=== PATIENT | female | born 1950 | race Caucasian/White ===

== ENCOUNTER → 2016-10-03 | Outpatient (CLI) | payer OTHER ==
[~2016-10-03] MED LIST: ALBU18002 INH; ATOR10TA88 PO; CALC600T9 PO; DEXL30CA5 PO; FLVHFA110 INH; MAGN400T6 PO; METO-217 PO; MULTCAP7 PO
--- NOTE | 2016-10-03 15:01 | MAMMOGRAPHY REPORT ---
BILATERAL DIGITAL SCREENING MAMMOGRAM WITH CAD: 10/03/2016 CLINICAL HISTORY: Routine screening. Patient has no complaints. TECHNIQUE: Current study was also evaluated with a Computer Aided Detection (CAD) system. Bilatera l CC and MLO views were obtained. COMPARISON: Comparison is made to exams dated: 09/28/2015 mammogram, 09/27/2014 mammogram, 09/08/2012 mammogram, 08/30/2010 mammogram, 08/29/2009 mammogram, and 09/09/2013 mammogram - [facility]. BREAST COMPOSITION: The tissue of both breasts is almost entirely fatty. FINDINGS: No suspicious masses, calcifications, or areas of architectural distortion are noted in e ither breast. There has been no significant interval change compared to prior exams. IMPRESSION: ACR BI-RADS CATEGORY 1: NEGATIVE There is no mammographic evidence of malignancy. A 1 year screening mammogram is recommended. The p atient will receive written notification of the results. Approximately 10% of breast cancers are not detected with mammography. A negative mammographic repor t should not delay biopsy if a clinically suggestive mass is present. Saumya Moon M.D. /:10/03/2016 13:33:07 [employer] Special Education Teacher: Selena Courtney, [facility] letter sent: Normal 1/2 BI-RADS Code: ACR BI-RADS Category 1: Negative
== END | disposition home or self-care (01) ==
LOC: C.MAMM 13:03
PROVIDERS: ATTEND Family Medicine
DX: Z12.31 Encounter for screening mammogram for malignant neoplasm of breast (principal)

== ENCOUNTER → 2017-01-29 | Day surgery (SDC) | payer OTHER ==
[2017-01-21 10:21] VITALS: BMI 47.0
[~2017-01-29] VITALS: Ht 162.6 cm; Wt 122.7 kg
[~2017-01-29] MED LIST changes: +LIDOCAINE HCL 2% 2 ML VIAL (20MG/ML) ONE; +MIDAZOLAM HCL 1 MG/ML 2ML VIAL ONE; +PROPOFOL IV EMULSION 10 MG/ML 20 ML VIAL IV ONE; +SODIUM CHLORIDE 0.9% 500ML 500 ML IV ONE
[2017-01-29 07:53] VITALS: Ht 162.6 cm; Wt 122.7 kg
--- NOTE | 2017-01-29 08:48 | Endo History and Physical ---
History & Physical Date of Service: Jan 29, 2017. Chief Complaint: SCREENING Referring Physician: DR. FLORES History of Present Illness patient for screening colonoscopy Past Surgical History Hx Cardiac Surgery: No Hx Internal Defibrillator: No Hx Pacemaker: No Hx Abdominal Surgery: Yes ([facility]) Hx of Implantable Prosthesis: No Hx Post-Op Nausea and Vomiting: Yes Hx Cancer Surgery: No Hx Thoracic Surgery: No Hx Orthopedic: Yes (RT/LEFT KNEE ARTHROSCOPY, RT THUMB JOINT SX) Hx Urinary Tract Surgery: No Family History None Social History Smoking Status: Never Smoker Hx Substance Use: No Hx Alcohol Use: Yes (RARELY) Allergies Coded Allergies: Indomethacin (Verified Allergy, Unknown, HEADACHE, 01/29/17) Sulfa Antibiotics (Verified Allergy, Unknown, SOAR SPOTS IN MOUTH, 01/29/17 ) Current Medications Reported Home Medications Medications Dose Route/Sig Max Daily Dose Days Date Category Eye Vitamins (Multiple Vitamins W/ Minerals) 1 Cap Cap 1 Cap PO QAM 01/21/17 Reported Calcium + D (Calcium Carbonate-Vitamin D) 1 Tab Tab 2 Tab PO BID 01/21/17 Reported Mag-Ox (Magnesium Oxide) 400 Mg Tab 400 Mg PO QPM 01/21/17 Reported Flovent Hfa (Fluticasone Propionate) 120 Puffs/10219 Mcg Aero 2 Puffs INH BID 30 01/21/17 Reported Proair Respiclick (Albuterol Sulfate) 108 Mcg/Act Aer 2 Puff INH Q4H PRN 01/21/17 Reported Lipitor (Atorvastatin Calcium) 10 Mg Tab 10 Mg PO HS 01/21/17 Reported Toprol Xl (Metoprolol Succinate) 50 Mg Tabcr 50 Mg PO BID 01/21/17 Reported Dexilant (Dexlansoprazole) 30 Mg Cap 1 Cap PO QAM 01/21/17 Reported Vital Signs Weight (Kilograms): 122.73 Height (Feet): 5 Height (Inches): 4 Date Time Temp Pulse Resp B/P (MAP) Pulse Ox O2 Delivery O2 Flow Rate FiO2 01/29/17 08:02 36.8 47 20 138/85 (102) 95 Room Air Physical Exam General Appearance: no apparent distress Respiratory/Chest: Auscultation: breath sounds normal Cardiovascular: Heart Auscultation: RRR Abdomen: Inspection & Palpation: soft, no tenderness, guarding & rebound Assessment and Plan stable for colonoscopy
--- NOTE | 2017-01-29 09:14 | Discharge Instructions ---
Endoscopy Patient Instructions Date / Procedure(s) Performed Jan 29, 2017. Colonoscopy Allergy Information Coded Allergies: Indomethacin (Verified Allergy, Unknown, HEADACHE, 01/29/17) Sulfa Antibiotics (Verified Allergy, Unknown, SOAR SPOTS IN MOUTH, 01/29/17 ) Discharge Date / Findings Jan 29, 2017. normal colonoscopy Provider Instructions Activity Restrictions - No exercising or heavy lifting for 24 hours. - Do not drink alcohol the day of the procedure. - Do not drive a car or operate machinery until the day after the procedure. - Do not make any important decisions or sign important papers in 24 hours after the procedure. Following Day: - Return to full activity which may include returning to work/school. Diet Start your diet with liquids and light foods (jello, soup, juice, toast). Then eat your usual diet if not nauseated. Treatment For Common After Affects For mild abdominal pain, bloating, or excessive gas: - Rest - Eat lightly - Lie on right side Follow-Up Information Follow-up with DR. FLORES as scheduled Anesthesia Information What You Should Know You have had a procedure that required some medicine to reduce anxiety and discomfort. This treatment is called moderate sedation. After receiving the treatment, you may be sleepy, but you will be able to breathe on your own. The effects of the treatment may last for several hours. Follow these instructions along with Activity/Diet recommendations noted above: * Do NOT do anything where dizziness or clumsiness would be dangerous. * Rest quietly at home today, then you can be up and about tomorrow. * Have a responsible person stay with you the rest of today. * You may have had an I.V. today. If so, you may take the dressing off later today. Recommendations Call your doctor if: * Trouble breathing * Continuous vomiting for more than 24 hours * Temperature above 101 degrees * Severe abdominal pain or bloating * Pain not relieved by pain medicine ordered * There is increased drainage or redness from any incision * A large amount of rectal bleeding greater than 2-3 tablespoons. (If you had a polyp/s removed or have hemorrhoids, a small amount of blood - from the rectum is to be expected.) * You have any unanswered questions or concerns. IN THE EVENT OF A SERIOUS EMERGENCY, GO TO THE NEAREST EMERGENCY ROOM Your discharge instructions were prepared by provider Renato Farias. Patient Instructions Signature Page Edel Herndon Patient (or Guardian) Signature/Date: I have read and understand the instructions given to me by my caregivers. Caregiver/RN/Doctor Signature/Date: The above-named patient and/or guardian has received patient instructions on this date. + Original Patient Signature Page (only) stays with chart. Please make copy for patient.
--- NOTE | 2017-01-29 09:17 | GI REPORT ---
Procedure Date: 01/29/2017 8:24 AM Procedure: Colonoscopy Indications: Screening for colorectal malignant neoplasm Medicines: See the Anesthesia note for documentation of the administered medications Complications: No immediate complications. Estimated Blood Loss: Estimated blood loss: none. Procedure: Pre-Anesthesia Assessment: - Prior to the procedure, a History and Physical was performed, and patient medications, allergies and sensitivities were reviewed. The patient's tolerance of previous anesthesia was reviewed. - The risks and benefits of the procedure and the sedation options and risks were discussed with the patient. All questions were answered and informed consent was obtained. - Patient identification and proposed procedure were verified prior to the procedure by the physician and the nurse. The procedure was verified in the pre-procedure area. - Pre-procedure physical examination revealed no contraindications to sedation. - After reviewing the risks and benefits, the patient was deemed in satisfactory condition to undergo the procedure. After I obtained informed consent, the scope was passed under direct vision. Throughout the procedure, the patient's blood pressure, pulse, and oxygen saturations were monitored continuously. The scope was introduced through the anus and advanced to the terminal ileum, with identification of the appendiceal orifice and IC valve. The colonoscopy was performed without difficulty. The patient tolerated the procedure well. The quality of the bowel preparation was good. Findings: The perianal and digital rectal examinations were normal. The terminal ileum appeared normal. The entire examined colon appeared normal on direct and retroflexion views. Impression: - The examined portion of the ileum was normal. - The entire examined colon is normal on direct and retroflexion views. - No specimens collected. Recommendation: - Repeat colonoscopy in 10 years for screening purposes. - Discharge patient to home. Renato Farias M.D. Renato Farias MD 01/29/2017 9:17:10 AM This report has been signed electronically. Note Initiated On: 01/29/2017 8:24 AM I attest to the content of the Intraoperative Record and orders documented therein, exceptions below
[2017-01-29 09:52] VITALS: BP 114/78; PULSE 67; O2SAT 96
--- NOTE | 2017-01-29 10:15 | Anesthesiology Progress Note ---
Anesthesia Post Op Note Date & Time Jan 29, 2017 at 10:15 Vital Signs Pain Intensity: 0 Vital Signs Past 12 Hours Date Time Temp Pulse Resp B/P (MAP) Pulse Ox O2 Delivery O2 Flow Rate FiO2 01/29/17 09:52 67 20 114/78 (90) 96 Room Air 01/29/17 09:34 73 20 100/65 (77) 96 Room Air 01/29/17 09:17 88 24 102/73 (83) 94 Nasal Cannula 2 01/29/17 08:02 36.8 47 20 138/85 (102) 95 Room Air Notes Mental Status: alert / awake / arousable, participated in evaluation Pt Amnestic to Procedure: Yes Nausea / Vomiting: adequately controlled Pain: adequately controlled Airway Patency, RR, SpO2: stable & adequate BP & HR: stable & adequate Hydration State: stable & adequate Anesthetic Complications: no major complications apparent
== END | disposition home or self-care (01) ==
LOC: C.GI 07:18
PROVIDERS: ATTEND Nurse Practitioner Family
DX: Z12.11 Encounter for screening for malignant neoplasm of colon (principal); Z90.49 Acquired absence of other specified parts of digestive tract

== ENCOUNTER → 2017-10-07 | Outpatient (CLI) | payer OTHER ==
[~2017-10-07] MED LIST changes: +ATOR10TA82 PO; -ATOR10TA88 PO; -LIDOCAINE HCL 2% 2 ML VIAL (20MG/ML) ONE; -MIDAZOLAM HCL 1 MG/ML 2ML VIAL ONE; -PROPOFOL IV EMULSION 10 MG/ML 20 ML VIAL IV ONE; -SODIUM CHLORIDE 0.9% 500ML 500 ML IV ONE
--- NOTE | 2017-10-08 13:05 | MAMMOGRAPHY REPORT ---
BILATERAL DIGITAL SCREENING MAMMOGRAM TOMOSYNTHESIS WITH CAD: 10/07/2017 CLINICAL HISTORY: Routine screening. Patient has no complaints. TECHNIQUE: Breast tomosynthesis in addition to standard 2D mammography was performed. Current study was also evaluated with a Computer Aided Detection (CAD) system. COMPARISON: Comparison is made to exams dated: 10/03/2016 mammogram, 09/28/2015 mammogram, 09/27/2014 m ammogram, 09/08/2012 mammogram, 09/03/2011 mammogram, and 08/30/2010 mammogram - [facility] enter. BREAST COMPOSITION: The tissue of both breasts is almost entirely fatty. FINDINGS: There is stable focal asymmetry in the upper outer quadrant of the left breast. No suspicio us mass, architectural distortion or cluster of microcalcifications is seen. IMPRESSION: ACR BI-RADS CATEGORY 1: NEGATIVE There is no mammographic evidence of malignancy. A 1 year screening mammogram is recommended. The pa tient will receive written notification of the results. Approximately 10% of breast cancers are not detected with mammography. A negative mammographic report should not delay biopsy if a clinically suggestive mass is present. Norma Walsh M.D. ay/:10/07/2017 17:24:02 Staple Processing Machine Operator: Kinga MARTINS(Girsel)(Roya), [facility] letter sent: Normal 1/2 BI-RADS Code: ACR BI-RADS Category 1: Negative
== END | disposition home or self-care (01) ==
LOC: C.MAMM 13:17
PROVIDERS: ATTEND Family Medicine
DX: Z12.31 Encounter for screening mammogram for malignant neoplasm of breast (principal)

== ENCOUNTER 2022-01-26 10:46 | Observation (INO) ==
--- NOTE | 2022-01-01 09:25 | PAT Medication Instructions ---
Medication Instructions Date of Service January 01, 2022 Home Medications albuterol sulfate 2.5 mg INHALATION Q4 PRN albuterol sulfate 90 mcg/actuation aerosol inhaler (Proventil HFA) 2 puff INHALATION Q4 PRN atorvastatin 10 mg tablet 10 mg PO HS calcium carbonate 600 mg-vitamin D3 5 mcg (200 unit) capsule (Calcium 600 + D(3)) 2 cap PO BID esomeprazole magnesium 20 mg capsule,delayed release (Nexium) 20 mg PO QAM fluticasone propionate 110 mcg/actuation HFA aerosol inhaler (Flovent HFA) 2 puff INHALATION BID fluticasone propionate 50 mcg/actuation nasal spray,suspension (Flonase Allergy Relief) 2 spray INTRANASAL QAM hydrocortisone 2.5 % topical cream with perineal applicator (Proctozone-HC) 1 applic GA BID PRN ketoconazole 2 % topical cream 1 applic TOPICAL BID PRN lutein 25 mg-zeaxanthin 5 mg capsule (Ocuvite Lutein) 1 cap PO QAM magnesium oxide 400 mg PO QPM metoprolol succinate 50 mg tablet,extended release 24 hr 50 mg PO BID furosemide 20 mg tablet 20 mg PO 3XWK mirabegron 50 mg tablet,extended release 24 hr 50 mg PO QPM montelukast 10 mg tablet 10 mg PO QAM spironolactone 25 mg tablet 12.5 mg PO QAM famotidine 20 mg tablet 20 mg PO BID ferrous sulfate 325 mg (65 mg iron) tablet 325 mg PO QAM hydroxyzine HCl 10 mg tablet 10 mg PO QID PRN levocetirizine 5 mg tablet 5 mg PO BID ropinirole 2 mg tablet 2 mg PO TID STOP taking 2 weeks before surgery (or as soon as possible if surgery is within 2 weeks) lutein 25 mg-zeaxanthin 5 mg capsule (Ocuvite Lutein) 1 cap PO QAM STOP taking 24 hours before surgery ketoconazole 2 % topical cream 1 applic TOPICAL BID PRN DO NOT take the morning of surgery calcium carbonate 600 mg-vitamin D3 5 mcg (200 unit) capsule (Calcium 600 + D(3)) 2 cap PO BID hydrocortisone 2.5 % topical cream with perineal applicator (Proctozone-HC) 1 applic GA BID PRN furosemide 20 mg tablet 20 mg PO 3XWK montelukast 10 mg tablet 10 mg PO QAM spironolactone 25 mg tablet 12.5 mg PO QAM ferrous sulfate 325 mg (65 mg iron) tablet 325 mg PO QAM hydroxyzine HCl 10 mg tablet 10 mg PO QID PRN levocetirizine 5 mg tablet 5 mg PO BID ropinirole 2 mg tablet 2 mg PO TID Take morning of surgery With a small sip of water, OTHERWISE NOTHING TO EAT OR DRINK AFTER MIDNIGHT: albuterol sulfate 2.5 mg INHALATION Q4 PRN (if needed) albuterol sulfate 90 mcg/actuation aerosol inhaler (Proventil HFA) 2 puff INHALATION Q4 PRN (if needed) esomeprazole magnesium 20 mg capsule,delayed release (Nexium) 20 mg PO QAM fluticasone propionate 110 mcg/actuation HFA aerosol inhaler (Flovent HFA) 2 puff INHALATION BID fluticasone propionate 50 mcg/actuation nasal spray,suspension (Flonase Allergy Relief) 2 spray INTRANASAL QAM metoprolol succinate 50 mg tablet,extended release 24 hr 50 mg PO BID famotidine 20 mg tablet 20 mg PO BID Use rescue inhaler if needed; please bring rescue inhaler with you to hospital day of surgery if possible. Take evening before surgery albuterol sulfate 2.5 mg INHALATION Q4 PRN (if needed) albuterol sulfate 90 mcg/actuation aerosol inhaler (Proventil HFA) 2 puff INHALATION Q4 PRN (if needed) atorvastatin 10 mg tablet 10 mg PO HS calcium carbonate 600 mg-vitamin D3 5 mcg (200 unit) capsule (Calcium 600 + D(3)) 2 cap PO BID fluticasone propionate 110 mcg/actuation HFA aerosol inhaler (Flovent HFA) 2 puff INHALATION BID hydrocortisone 2.5 % topical cream with perineal applicator (Proctozone-HC) 1 applic GA BID PRN (if needed) magnesium oxide 400 mg PO QPM metoprolol succinate 50 mg tablet,extended release 24 hr 50 mg PO BID mirabegron 50 mg tablet,extended release 24 hr 50 mg PO QPM famotidine 20 mg tablet 20 mg PO BID hydroxyzine HCl 10 mg tablet 10 mg PO QID PRN (if needed) levocetirizine 5 mg tablet 5 mg PO BID ropinirole 2 mg tablet 2 mg PO TID Other Notes If you have any questions please call us at [phone] or [phone] or [phone] or [phone]
--- NOTE | 2022-01-03 08:28 | Anesthesiology Consultation ---
Date of Service January 03, 2022 Assessment & Plan (1) Encounter for pre-operative examination: - COVID screening: Per assessment on 01/03/2022: Travel screen negative, no known COVID-19 positive contacts or current COVID-19 related symptoms in past 2 weeks. Pt vaccinated. Surgeon arranging preop COVID testing, scheduled 01/24/2022. Awaiting results. Chart Review Chart Review: Acceptable Risk for Surgery and Patient seen in Pre Admission Testing Teaching & Discussion Pre-Anesthesia Teaching/Discussion Notes: Instructed NPO after midnight before surgery, except medications with 15 cc of water. Medication instructions provided according to the PAT guidelines. History Surgery Operation Date: 01/26/22 10:20 Proposed Procedures p Left Total Knee Arthroplasty - Chava Rain, Height/Weight Height: 5 ft 2.5 in Weight: 94.8 kg Allergies Allergy/AdvReac Type Severity Reaction Status Date / Time indomethacin Allergy Mild HEADACHE Verified 01/01/22 07:42 Sulfa (Sulfonamide Allergy Mild SORE SPOTS Verified 01/01/22 07:42 Antibiotics) IN MOUTH midazolam [From Versed] AdvReac Intermediate Nausea Verified 01/01/22 07:42 Medications Home Medications Medication Instructions Recorded Confirmed Last Taken albuterol sulfate 2.5 mg INHALATION Q4 PRN 01/29/19 01/01/22 Unknown albuterol sulfate 90 mcg/actuation 2 puff INHALATION Q4 PRN 01/29/19 01/01/22 Unknown aerosol inhaler (Proventil HFA) atorvastatin 10 mg tablet 10 mg PO HS 01/29/19 01/01/22 02/09/19 02:30 calcium carbonate 600 mg-vitamin 2 cap PO BID 01/29/19 01/01/22 02/09/19 08:00 D3 5 mcg (200 unit) capsule (Calcium 600 + D(3)) esomeprazole magnesium 20 mg 20 mg PO QAM 01/29/19 01/01/22 02/10/19 07:00 capsule,delayed release (Nexium) fluticasone propionate 110 2 puff INHALATION BID 01/29/19 01/01/22 Unknown mcg/actuation HFA aerosol inhaler (Flovent HFA) fluticasone propionate 50 2 spray INTRANASAL QAM 01/29/19 01/01/22 02/09/19 08:00 mcg/actuation nasal spray,suspension (Flonase Allergy Relief) hydrocortisone 2.5 % topical cream 1 applic CA BID PRN 01/29/19 01/01/22 Unknown with perineal applicator (Proctozone-HC) ketoconazole 2 % topical cream 1 applic TOPICAL BID PRN 01/29/19 01/01/22 Unknown lutein 25 mg-zeaxanthin 5 mg 1 cap PO QAM 01/29/19 01/01/22 02/09/19 08:30 capsule (Ocuvite Lutein) magnesium oxide 400 mg PO QPM 01/29/19 01/01/22 02/09/19 20:00 metoprolol succinate 50 mg 50 mg PO BID 01/29/19 01/01/22 02/10/19 07:00 tablet,extended release 24 hr furosemide 20 mg tablet 20 mg PO 3XWK tab 11/15/21 01/01/22 Unknown mirabegron 50 mg tablet,extended 50 mg PO QPM 11/15/21 01/01/22 Unknown release 24 hr montelukast 10 mg tablet 10 mg PO QAM 11/15/21 01/01/22 Unknown spironolactone 25 mg tablet 12.5 mg PO QAM tab 11/15/21 01/01/22 Unknown famotidine 20 mg tablet 20 mg PO BID 01/01/22 01/01/22 Unknown ferrous sulfate 325 mg (65 mg 325 mg PO QAM 01/01/22 01/01/22 Unknown iron) tablet hydroxyzine HCl 10 mg tablet 10 mg PO QID PRN 01/01/22 01/01/22 Unknown levocetirizine 5 mg tablet 5 mg PO BID 01/01/22 01/01/22 Unknown ropinirole 2 mg tablet 2 mg PO TID 01/01/22 01/01/22 Unknown Past Medical History Medical History (Updated 01/03/22 @ 08:40 by Adwoa Sweeney PA-C) Asthma "mild"--rescue treatment last use > 1 month ago GERD (gastroesophageal reflux disease) controlled, stable per pt Hives of unknown origin uses singulair and levocetrizine daily -- 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 Hx of colonic polyp Hyperlipidemia Hypertension controlled, stable per pt Kidney stones no surgery needed. Palpitations chronic atrial and ventricular ectopic beats, on beta samuel, follows with [facility] Restless leg syndrome Patient denies h/o stroke, seizures, heart attack, heart failure, DM, blood clots or blood transfusions. Exercise / Class Metabolic Activity II 4-5 Yardwork/Stairs/Walk up hill (SOB at top of 1 FOS, denies chest discomfort; ongoing x several yrs improved with intentional weight loss) Past Family History Family History Family/Other Family history of diabetes mellitus cousins Other No family history of adverse response to anesthesia Past Surgical History Surgical History History of arthroscopy of left knee History of arthroscopy of right knee History of cholecystectomy History of colonoscopy History of esophagogastroduodenoscopy (EGD) History of hand surgery right hand, thumb removed ligament History of tonsillectomy and adenoidectomy History of tooth extraction History of wisdom tooth extraction Status post bilateral foot surgery plantar fasciitis relief sx Past Anesthesia History No Hx of Anesthesia Complications and No Family Hx of Anesthesia Complications History of PONV No Hx of PONV and No Hx of Motion Sickness Social History Smoking Status: Never smoker Do You Dip or Chew Tobacco: No Hx Alcohol Use: Yes Alcohol type: beer, wine and hard liquor alcohol intake frequency: holidays/special occasions only Hx Substance Use: No substance use type: does not use Review of Systems Snoring, denies witnessed apneas. Patient denies chest pain, fever, or chills. Physical Exam Vital Signs Vitals BP 130/82 P 62 TEMP 98.5 SP02 98% on RA RESP 17 Physical Full cervical extension range of motion without pain TMD 3.5 finger breaths Mallampati Score 3 Dentition: intact, bridge upper left side, several crowns-none in front; denies chipped or loose teeth, implants Lungs: normal respiratory effort. Clear throughout to auscultation, no adventitious breath sounds Cardiac: regular rate and rhythm, no murmurs noted Carotid arteries: negative bruit bilat Lab Results Anesthesia Preop Results Results Anesthesia Widget: WBC 5.37 K/uL (4.8-10.8) 01/03/22 Hgb 12.6 g/dL (12.0-16.0) 01/03/22 Hct 39.8 % (37-47) 01/03/22 Plt 251 K/uL (130-400) 01/03/22 Na 142 mmol/L (136-145) 01/03/22 K 4.4 mmol/L (3.5-5.1) 01/03/22 Cl 107 mmol/L (98-107) 01/03/22 CO2 31 mmol/L (21-32) 01/03/22 BUN 22 mg/dl (6-23) 01/03/22 Creat 0.91 mg/dl (0.6-1.2) 01/03/22 Glucose Level 86 mg/dl (70-99(Fasting)) 01/03/22 PT 10.3 Seconds (9.0-12.0) 01/03/22 PTT 26.8 Seconds (21.0-31.0) 01/03/22 INR 1.0 (0.9-1.1) 01/03/22 Blood Type O Negative 01/03/22 Antibody Screen NEGATIVE 01/03/22 Testing Electrocardiogram Date: 11/10/21 Sinus rhythm with marked sinus arrhythmia, ratae 72 bpm Chest X-Ray Date: 01/03/22 Lung volumes are normal. Lungs are clear. There is no pneumothorax or pleural ef fusion. Cardiac size is normal. Mediastinal contours are normal. There is no evidence for pulmonary edema. Cholecystectomy clips are incidentally noted. IMPRESSION: No acute cardiopulmonary findings. Echocardiogram Date: 08/04/20 EF 55-59% Grade I diastolic dysfunction Normal LV wall thickness No significant valvular disease
--- NOTE | 2022-01-25 09:43 | History & Physical Report ---
Date of Service January 25, 2022 Assessment & Plan (1) Osteoarthritis of left knee: We will proceed with a left total knee arthroplasty. Postoperatively she will be started on aspirin for DVT prophylaxis and kept overnight in the hospital for postoperative medical management. She plans [facility] discharge. History of Present Illness Chief Complaint: Osteoarthritis of the left knee. Primary Care Provider: Bart Brown MD Edel is a pleasant 71-year-old female whohas been dealing with chronic worsening bilateral knee pain, left worse than right. She has been following up at [facility]. She has had multiple cortisone injections and viscosupplementation. She has done therapy without relief. She is still struggling with her knees. She has known osteoarthritis of her knees. After failing conservative treatment, she has elected to proceed with a left total knee arthroplasty. Allergies Allergy/AdvReac Type Severity Reaction Status Date / Time indomethacin Allergy Mild HEADACHE Verified 01/01/22 07:42 Sulfa (Sulfonamide Allergy Mild SORE SPOTS Verified 01/01/22 07:42 Antibiotics) IN MOUTH midazolam [From Versed] AdvReac Intermediate Nausea Verified 01/01/22 07:42 Home Medications Medication Instructions Recorded Confirmed Type albuterol sulfate 2.5 mg inhalation Q4 PRN Shortness 01/29/19 01/01/22 History Of Breath albuterol sulfate 90 mcg/actuation 2 puff inhalation Q4 PRN Shortness 01/29/19 01/01/22 History aerosol inhaler (Proventil HFA) Of Breath atorvastatin 10 mg tablet 10 mg PO HS 01/29/19 01/01/22 History calcium carbonate 600 mg-vitamin 2 cap PO BID 01/29/19 01/01/22 History D3 5 mcg (200 unit) capsule (Calcium 600 + D(3)) esomeprazole magnesium 20 mg 20 mg PO QAM 01/29/19 01/01/22 History capsule,delayed release (Nexium) fluticasone propionate 110 2 puff inhalation BID 01/29/19 01/01/22 History mcg/actuation HFA aerosol inhaler (Flovent HFA) fluticasone propionate 50 2 spray intranasal QAM 01/29/19 01/01/22 History mcg/actuation nasal spray,suspension (Flonase Allergy Relief) hydrocortisone 2.5 % topical cream 1 applic [place] BID PRN Hemorrhoids 01/29/19 01/01/22 History with perineal applicator (Proctozone-HC) ketoconazole 2 % topical cream 1 applic topical BID PRN Rash 01/29/19 01/01/22 History lutein 25 mg-zeaxanthin 5 mg 1 cap PO QAM 01/29/19 01/01/22 History capsule (Ocuvite Lutein) magnesium oxide 400 mg PO QPM 01/29/19 01/01/22 History metoprolol succinate 50 mg 50 mg PO BID 01/29/19 01/01/22 History tablet,extended release 24 hr furosemide 20 mg tablet 20 mg PO 3XWK 11/15/21 01/01/22 History mirabegron 50 mg tablet,extended 50 mg PO QPM 11/15/21 01/01/22 History release 24 hr montelukast 10 mg tablet 10 mg PO QAM 11/15/21 01/01/22 History spironolactone 25 mg tablet 12.5 mg PO QAM 11/15/21 01/01/22 History famotidine 20 mg tablet 20 mg PO BID 01/01/22 01/01/22 History ferrous sulfate 325 mg (65 mg 325 mg PO QAM 01/01/22 01/01/22 History iron) tablet hydroxyzine HCl 10 mg tablet 10 mg PO QID PRN Itching 01/01/22 01/01/22 History levocetirizine 5 mg tablet 5 mg PO BID 01/01/22 01/01/22 History ropinirole 2 mg tablet 2 mg PO TID restless leg 01/01/22 01/01/22 History Past Med/Surg History Medical History Asthma "mild"--rescue treatment last use > 1 month ago GERD (gastroesophageal reflux disease) controlled, stable per pt Hives of unknown origin uses singulair and levocetrizine daily -- 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 Hx of colonic polyp Hyperlipidemia Hypertension controlled, stable per pt Kidney stones no surgery needed. Palpitations chronic atrial and ventricular ectopic beats, on beta samuel, follows with [facility] cardio Peripheral neuropathy Restless leg syndrome Surgical History History of arthroscopy of left knee History of arthroscopy of right knee History of cholecystectomy History of colonoscopy History of esophagogastroduodenoscopy (EGD) History of hand surgery right hand, thumb removed ligament History of tonsillectomy and adenoidectomy History of tooth extraction History of wisdom tooth extraction Status post bilateral foot surgery plantar fasciitis relief sx Family History Family/Other Family history of diabetes mellitus cousins Other No family history of adverse response to anesthesia Social History Smoking Status: Never smoker Second Hand Exposure: Yes (hx work environment/parents smoked); Hx Alcohol Use: Yes Alcohol type: beer, wine and hard liquor Hx Substance Use: No Preferred Language: Turkish Communication Ability: Effective Car Customizer Required: No Beliefs That Will Affect Care: None Current Living Situation: Spouse Feels Safe at Home: Yes Assistive Devices: Glasses Review of Systems All systems reviewed & are unremarkable except as noted in HPI & below. Physical Exam On physical examination of the left knee, she has a slight varus deformity. She has range of motion from 5 to 115 degrees. She has a trace effusion.. Constitutional WD/WN, vitals as above Eyes PERRL, conjunctivae normal, anicteric sclerae ENMT external ear and nose normal, oropharynx normal Neck trachea midline, no thyromegaly Respiratory normal respiratory effort, lungs clear to auscultation Cardiovascular RRR, no murmur, no edema Gastrointestinal (Abdomen) normal bowel sounds, soft, nontender, no hepatosplenomegaly Skin no rashes, warm and dry Psychiatric A+Ox3, euthymic affect Results & Data Results & Data Laboratory Results . Diagnostic Findings X-rays of the left knee show advanced osteoarthritis with joint space narrowing, osteophyte formation, and fvpo-ex-pmer articulation. PG Care Time/CCT Total # of Minutes Spent Total Time Spent with Patient: Total time spent is greater than 50% in coordination of care (as documented) at patient's floor/unit and/or counseling patient: Coding Level of Care Code None Diagnoses Osteoarthritis of left knee M17.12
[~2022-01-26 10:46] MED LIST changes: +ACETAMINOPHEN 500 MG TAB PO SCH; -ALBU18002 INH; -ATOR10TA82 PO; +BUPIVACAINE 0.5 % 5 MG/1 ML PF 10ML VIAL ONE; -CALC600T9 PO; -DEXL30CA5 PO; +FAMOTIDINE 20 MG TAB PO SCH; -FLVHFA110 INH; +GABAPENTIN 300 MG CAP PO SCH; +Ketorolac (*for OR use only*) 30 MG, dexAMETHasone 4 MG, KETAMINE HCL (**OR use only) 1... INFIL SCH; +LR 15ML/HR IV SCH; +LR 60ML/HR IV SCH; -MAGN400T6 PO; -METO-217 PO; -MULTCAP7 PO; +ROPIVACAINE 0.5% 5 MG/ML 30 ML VIAL ONE; +TRANEXAMIC ACID 1,000 MG **IV Intra-op IV SCH; +TRANEXAMIC ACID 1,000 MG **IV Pre-op IV SCH; +ceFAZolin 2000MG 2,000 MG/15 ML SYR IV SCH; +dexAMETHasone 4 MG TAB PO SCH
--- NOTE | 2022-01-26 11:33 | History & Physical Bridge Note ---
Date of Service January 26, 2022 History & Physical Bridge Note I have examined the patient, reviewed the History & Physical and in the interval since the performance of the History & Physical I have noted the following changes of clinical significance: no changes noted
[2022-01-26] MEDS ORDERED: fentaNYL citrate 100 MCG/2 ML VIAL ONE (11:46)
[2022-01-26] MEDS ORDERED: ORTHO JOINT ANESTHETIC ONE (12:03)
[2022-01-26] MEDS ORDERED: ONDANSETRON INJ 2 MG/ML 2 ML VIAL IV PRN ×2 (12:36→17:08)
[2022-01-26] MEDS ORDERED: ePHEDrine sulfate 50 MG/ML AMP IV PRN (12:36)
[2022-01-26] MEDS ORDERED: ATROPINE SULFATE 0.1 MG/ML 10ML SYR IV PRN (12:36)
[2022-01-26] MEDS ORDERED: fentaNYL citrate 100 MCG/2 ML VIAL IV PRN (12:36)
--- NOTE | 2022-01-26 14:06 | Operative Report ---
PG Post Operative Report Pre & Post Diagnosis Operation Date: 01/26/22 12:40 Pre-Op Diagnosis: Left Knee Degenerative Joint Disease Post-Op Diagnosis: Left Knee Degenerative Joint Disease I identified the patient and participated in the time-out.: Yes Procedure Operation Date: 01/26/22 12:40 Actual Procedures p Left Total Knee Arthroplasty(Left) - Chava Rain DO Surgeon Chava Rain DO Siderographist Chava Arambula PA-C Estimated Blood Loss 30 Findings Consistent with Post-Op Diagnosis Specimens Left femoral and tibial bone Description of Procedure Implants used: I used a Balbir Persona total knee arthroplasty system with a size 6 femur, D tibia, 28 oval patella, and a size 12 medial congruent polyethylene bearing. All components were cemented in place with Biomet cement. Edel arrived [facility] for the above procedure. She was seen in the preoperative holding area and the operative extremity was identified and signed. She was given a preoperative antibiotic, TXA, a spinal anesthetic and an adductor nerve block. She was taken back to the operating room and laid on the table in supine position. She was given basic sedation. The operative knee was then prepped and draped in sterile fashion. A timeout was done, and the patient and the operative extremity was properly identified. A midline incision was made directly over the patella. Dissection was taken down to the extensor mechanism. A subvastus arthrotomy was used. The medial retinaculum was released and the fat pad was mostly excised. The knee was flexed and the ACL, PCL, and meniscus were removed. A drill was sent down the center of the femoral canal followed by an intramedullary daniel. Off that daniel a distal femoral cutting block was placed. 9 mm was resected off the distal femur at 5 of valgus. A posterior referencing AP sizing guide was then placed on the distal femur. The femur measured to be a size 6. 2 drill holes were placed in 3 of external rotation. A 4-in-1 cutting block was then impacted into place. Anterior, posterior, and chamfer cuts were then made. The proximal tibia was then exposed. An external tibial alignment guide was placed. A tibial cut guide was then anchored in place and the proximal tibia was then resected. The posterior aspect of the knee was then opened up and any additional meniscus fragments and osteophytes were removed. The tibia measured to be a size D. The tibial plate was then placed in the appropriate rotation and the tibia was drilled and punched. Trial components were then placed. I used a size 12 medial congruent polyethylene insert. The knee was brought through a full range of motion and felt to be stable. The peg holes for the femoral component were then drilled. The patella was then everted and 9 mm was resected off the posterior aspect of the patella. The patella measured to be a size 28 oval. 3 peg holes were then drilled. A trial patella was placed. The knee was once again brought through a full range of motion and felt to be stable. Trial components were then removed. The surrounding soft tissues were injected with 100 cc of an orthopedic pain control cocktail. All components were then cemented into place with Biomet cement. The final polyethylene insert was then snapped into place. Once cement was dry the tourniquet was deflated. Hemostasis was obtained. A dilute betadyne lavage was then done for 3 minutes. The joint was then irrigated with normal saline solution. The subvastus arthrotomy was then closed with #1 Vicryl suture. The skin was closed with 2-0 Vicryl, 3-0V lock suture, and saleem. A soft compressive dressing was placed. She was then transferred to a hospital bed and taken to the postanesthesia care unit in stable condition. She tolerated the procedure well. Chava Arambula PA-C, was present for the entire procedure. He was critical for patient positioning, prepping, draping, retraction exposure, wound closure and application of sterile dressing. I attest to the content of the Intraoperative Record and any orders documented therein. Any exceptions are noted below.
--- NOTE | 2022-01-26 15:03 | XRay Report ---
TWO VIEWS LEFT KNEE CLINICAL HISTORY: Postoperative examination. FINDINGS: AP and crosstable lateral portable views of the left knee are obtained. A left knee arthrop lasty is in near anatomic alignment. There has been undersurface remodeling of the patella. No acute fracture is seen. There are expected postoperative changes around the knee including skin clips, sof t tissue edema, and subcutaneous gas. IMPRESSION: Expected postoperative changes status post left knee arthroplasty. No acute fracture is s een. ACT 112: Negative or not required by law. Electronically signed by: Conrado Whyte M.D. 01/26/2022 3:01 PM
--- NOTE | 2022-01-26 16:20 | Anesthesiology Progress Note ---
Date of Service January 26, 2022 Anesthesia Post Procedure Vital Signs Vital Signs: Temp Pulse Pulse Resp BP BP Pulse Ox 01/26/22 16:10 57 L 16 106/60 96 01/26/22 16:00 58 L 17 108/60 96 01/26/22 15:50 56 L 15 104/60 98 01/26/22 15:40 52 L 14 102/58 L 96 01/26/22 15:30 53 L 14 102/58 L 97 01/26/22 15:20 56 L 17 94/59 L 92 01/26/22 15:10 55 L 18 100/60 92 01/26/22 15:00 55 L 16 107/58 L 94 01/26/22 14:50 57 L 18 106/62 96 01/26/22 14:40 58 L 14 114/65 97 01/26/22 14:30 64 15 112/62 100 01/26/22 14:23 36.5 C 64 16 111/61 100 01/26/22 11:39 36.7 C 65 18 128/71 98 O2 Del Method O2 Flow Rate 01/26/22 16:10 Room Air 01/26/22 16:00 Room Air 01/26/22 15:50 Room Air 01/26/22 15:40 Room Air 01/26/22 15:30 Room Air 01/26/22 15:20 Room Air 01/26/22 15:10 Room Air 01/26/22 15:00 Room Air 01/26/22 14:50 Room Air 01/26/22 14:40 Room Air 01/26/22 14:30 Room Air 01/26/22 14:23 Oxymask 5 01/26/22 11:39 Room Air Pain Intensity Left Knee: Pain Intensity: 3 Transfer of Care Handoff Completed per policy Notes Mental Status: alert / awake / arousable Patient Amnestic to Procedure: Yes Nausea / Vomiting: adequately controlled Pain: adequately controlled Airway Patency, RR, SpO2: stable & adequate BP & HR: stable & adequate Hydration State: stable & adequate Neuraxial Anesthesia: was administered and sensory block is resolving Anesthetic Complications: no major complications apparent
[2022-01-26] MEDS ORDERED: ALBUTEROL HFA 8 GM INHALER INH PRN (17:08)
[2022-01-26] MEDS ORDERED: bisacodyL 10 MG SUPP PR PRN (17:08)
[2022-01-26] MEDS ORDERED: METOCLOPRAMIDE HCL INJ 5 MG/ML 2 ML VIAL IV PRN (17:08)
[2022-01-26] MEDS ORDERED: HYDROCORTISONE HC 2.5% CRM 30GM TUBE EXT PRN (17:08)
[2022-01-26] MEDS ORDERED: KETOCONAZOLE 2% CR 15 GM TUBE EXT PRN (17:08)
[2022-01-26] MEDS ORDERED: NALOXONE HCL 0.4 MG/1 ML VIAL/CARP IV PRN (17:08)
[2022-01-26] MEDS ORDERED: hydrOXYzine HCl 10 MG TAB PO PRN (17:08)
[2022-01-26] MEDS ORDERED: ALBUTEROL 0.083% NEBU SOLN 3 ML VIAL INH PRN (17:08)
[2022-01-26] MEDS ORDERED: HYDROmorphone INJ 0.5 MG/0.5 ML SYR IV PRN (17:08)
[2022-01-26] MEDS ORDERED: SODIUM CHLORIDE 0.9% 1000ML 1,000 ML IV SCH (17:08)
[2022-01-26] MEDS ORDERED: MAGNESIUM HYDROXIDE SUSP 30 ML UDC PO PRN (17:08)
[2022-01-26] MEDS ORDERED: MAGNESIUM OXIDE 400 MG TAB PO SCH (21:00)
[2022-01-26] MEDS ORDERED: SENNA 8.6 MG TAB PO SCH (21:00)
[2022-01-26] MEDS ORDERED: ATORVASTATIN 10 MG TAB PO SCH (21:00)
[2022-01-26] MEDS ORDERED: MIRABEGRON ER 25 MG TAB PO SCH (21:00)
[2022-01-26] MEDS: ACETAMINOPHEN 500 MG TAB PO SCH (22:37)
[2022-01-26] MEDS: rOPINIRole HCL 2 MG TABLET PO SCH (22:38)
[2022-01-26] MEDS: FAMOTIDINE 20 MG TAB PO SCH (22:39)
[2022-01-26] MEDS: METOPROLOL SUCC 50MG EXT REL TAB PO SCH ×2 (22:40→22:42)
[2022-01-26] MEDS: DOCUSATE SODIUM 100 MG CAP PO SCH (22:42)
[2022-01-26] MEDS: ASPIRIN 81 MG ECTAB PO SCH (22:43)
[2022-01-26] MEDS: FLUTICASONE FUROATE 200MCG 14 PUFFS/INHALER INH SCH (22:45)
[2022-01-26] MEDS: ceFAZolin 2000MG 2,000 MG/15 ML SYR IV SCH (22:46)
[2022-01-26] MEDS: KETOROLAC TROMETHAMINE 15 MG/ML VIAL IV SCH ×2 (22:46→22:47)
[2022-01-27] MEDS: oxyCODONE HCL IR 5 MG TAB (IMMEDIATE RELEASE) PO PRN ×2 (03:19→13:34)
[2022-01-27] MEDS: ACETAMINOPHEN 500 MG TAB PO SCH ×2 (05:45→14:31)
[2022-01-27] MEDS: KETOROLAC TROMETHAMINE 15 MG/ML VIAL IV SCH ×2 (05:45→11:07)
[2022-01-27] MEDS: ceFAZolin 2000MG 2,000 MG/15 ML SYR IV SCH (05:46)
--- NOTE | 2022-01-27 07:16 | Orthopedic Progress Note ---
Date of Service January 27, 2022 Assessment & Plan (1) Status post left knee replacement: Overall she is doing very well. She is having much pain in the left knee. She will be seen by physical therapy today for ambulation and range of motion exercises. She is on aspirin for DVT prophylaxis. She will be discharged home later today. She will follow-up with orthopedics in 2 weeks. Dori Hollingsworth was seen and examined at bedside this morning. Overall she doing very well. She is having much pain in the left knee. She has been ambulating to the bathroom. She has no complaints.. Review of Systems All systems reviewed & are unremarkable except as noted in HPI & below. Physical Exam On physical examination of the left knee, the dressing is clean and dry. Her leg is out full extension. She has active dorsiflexion plantarflexion of the left ankle.. Results & Data Results & Data Laboratory Results . Diagnostic Findings Postoperative x-rays of the left knee show the prosthesis to be in anatomic alignment without any evidence of fracture, desiccation, or loosening. PG Care Time/CCT Total # of Minutes Spent Total Time Spent with Patient: Total time spent is greater than 50% in coordination of care (as documented) at patient's floor/unit and/or counseling patient: Coding Level of Care Code 53813 Post Operative Follow-Up Diagnoses Status post left knee replacement Z96.652
--- NOTE | 2022-01-27 07:17 | Discharge Summary ---
Date of Service January 27, 2022 Admission HPI (Per Admitting) Edel is a pleasant 71-year-old female whohas been dealing with chronic worsening bilateral knee pain, left worse than right. She has been following up at [facility]. She has had multiple cortisone injections and viscosupplementation. She has done therapy without relief. She is still struggling with her knees. She has known osteoarthritis of her knees. After failing conservative treatment, she has elected to proceed with a left total knee arthroplasty. Admission Exam (Per Admitting) On physical examination of the left knee, she has a slight varus deformity. She has range of motion from 5 to 115 degrees. She has a trace effusion.. Principal Diagnosis Same as "Discharge Diagnosis" noted below under Discharge Instructions. Discharge Exam On physical examination of the left knee, the dressing is clean and dry. Her leg is out full extension. She has active dorsiflexion plantarflexion of the left ankle.. Discharge Data Procedures Performed Operation Date: 01/26/22 12:40 Actual Procedures p Left Total Knee Arthroplasty(Left) - Chava Rain DO Ordered Studies 01/26/22 05:00 US - OR guided needle placemen Routine Hospital Course (1) Status post left knee replacement: On January 26 Edel arrived at [facility] and underwent a left knee replaced without complication. She had a spinal anesthetic. Postoperatively she was started on aspirin for DVT prophylaxis and transferred to the general orthopedic floors. Her hospital course was uneventful. On postop day #1, her vital signs were stable and her pain was well controlled. She was able to participate well with physical therapy doing ambulation and range of motion exercises. She was then discharged home. She will follow-up with orthopedics in 2 weeks. PG Care Time/CCT Total # of Minutes Spent Total Time Spent with Patient: Total time spent is greater than 50% in coordination of care (as documented) at patient's floor/unit and/or counseling patient: Discharge Plan Discharge Items Patient Disposition: Home - Home Health Services Reason For Visit: Left Knee Degenerative Joint Disease Discharge Diagnosis: Left knee replacement Activity: Per Instructions section Non-emergency contact: Surgeon Call non-emergency contact if: your wound has increased redness and your wound has increased drainage Follow-up/Referrals: Bart Brown MD [Primary Care Provider] - Diet: Regular Addtl Attending Provider Instructions: Activity and Therapy Recommendations: * If you are using [facility] then therapy will be provided at your home until they feel you have accomplished all of your goals. * If you are using [facility] then Physical Therapy will be provided until they feel you are ready to start Outpatient Physical Therapy. * If you are not using home therapy then Outpatient Physical Therapy should start about 3-5 days from your day of surgery. Therapy will last about 6-10 weeks * It is important not to put a pillow under your knee when you are relaxing or sleeping. It is just as important to make sure you are getting your knee perfectly straight as it is to regain your knee bend. * You were shown a series of exercises in the hospital. Do these exercises three times each day including the exercises you were shown in physical therapy. * Get up and walk several times each day. For the first four weeks, try not to stand or walk for more than one hour at a time. If you do stand or walk for more than one hour, you will not hurt anything, but your leg will likely swell. * As you feel comfortable, you may change from the walker or crutches to a cane and then to independent walking. Medications: * Narcotic You will likely be sent home from the hospital with a prescription for the narcotic pain medication that worked best throughout your stay. * Aspirin Most patients will be required to take Aspirin 81mg twice a day for 6 weeks after surgery. This is obtained [id number] and a prescription is not necessary. * Other medications may be prescribed for specific circumstances. If you have any questions, please call the office at . * Resume previous home medications unless otherwise instructed TEDs/Elastic Stockings: The white elastic stockings help limit swelling and prevent blood clots from forming in your legs.~ The more you wear them, the more they work. Wear them for six weeks. Dressing Care: The dressing can be changed after physical therapy on postop day #1. Daily dry dressing changes for a few days, especially if the incision is still draining some. If the incision is not draining then you may leave the saleem open to air. If there is a little bit of drainage or if the saleem are getting stuck on your clothing then cover the incision with a dry dressing. The saleem will be removed at your 2 week follow-up appointment. Showering: You may shower 5 days from the day of surgery as long as the incision is no longer draining. You may shower with the saleem exposed. Let soapy water run over the saleem and pat them dry. Do not scrub or soak the incision. Things To Watch For: * Drainage from the incision site that occurs more than one week after your surgery. * Increased redness at the incision site. * Fever above 102 degrees Fahrenheit. * Unusual chest pain or shortness of breath. * Call [facility] at with any of the above problems Follow-Up Visit: Follow-up with Dr. Rain's PA (Chava Arambula) 2-3 weeks after your day of surgery. He will remove your saleem and answer any questions. If you have any additional questions or concerns, Dr Rain is usually in the office at the same time and will be available An appointment was probably scheduled when you signed-up for surgery in the office. If you have any questions call Office Instructions: More detailed instructions as well as Frequently Asked Questions were provided in a folder by our office when you signed-up for surgery. Please review these instructions when you get home. If you have any further questions or concerns, please feel free to call the office at [phone] Pending Studies at Discharge: No Stand-Alone Forms: [facility] Medications and DC Order Prescriptions: New oxycodone-acetaminophen 5-325 mg tablet 1 tab PO Q6H PRN (Reason: pain) Qty: 30 0RF aspirin 81 mg Tablet,Delayed Release (Dr/Ec) 81 mg PO BID 42 Days Qty: 84 0RF Continued furosemide [Lasix] 20 mg tablet 20 mg PO 3XWK spironolactone 25 mg tablet 12.5 mg PO QAM montelukast 10 mg tablet 10 mg PO QAM Myrbetriq 50 mg tablet extended release 24 hr 50 mg PO QPM albuterol sulfate 2.5 mg /3 mL (0.083 %) Solution For Nebulization 2.5 mg INHALATION Q4 PRN (Reason: Shortness Of Breath) atorvastatin 10 mg Tablet 10 mg PO HS metoprolol succinate 50 mg Tablet Extended Release 24 Hr 50 mg PO BID hydrocortisone [Proctozone-HC] 2.5 % Cream With Perineal Applicator 1 applic LA BID PRN (Reason: Hemorrhoids) albuterol sulfate [Proventil HFA] 90 mcg/actuation Hfa Aerosol Inhaler 2 puff INHALATION Q4 PRN (Reason: Shortness Of Breath) ketoconazole 2 % Cream 1 applic TOPICAL BID PRN (Reason: Rash) fluticasone propionate [Flonase Allergy Relief] 50 mcg/actuation [place],Suspension 2 spray INTRANASAL QAM fluticasone propionate [Flovent HFA] 110 mcg/actuation Hfa Aerosol Inhaler 2 puff INHALATION BID esomeprazole magnesium [Nexium] 20 mg Capsule,Delayed Release(Dr/Ec) 20 mg PO QAM Calcium 600 + D(3) 600 mg calcium- 200 unit Capsule 2 cap PO BID magnesium oxide 400 mg magnesium Capsule 400 mg PO QPM lutein-zeaxanthin [Ocuvite Lutein 25] 25-5 mg Capsule 1 cap PO QAM famotidine [Pepcid] 20 mg Tablet 20 mg PO BID ropinirole 2 mg Tablet 2 mg PO TID levocetirizine [Xyzal] 5 mg Tablet 5 mg PO BID ferrous sulfate 325 mg (65 mg iron) Tablet 325 mg PO QAM hydroxyzine HCl 10 mg Tablet 10 mg PO QID PRN (Reason: Itching) Discharge Orders: Discharge Order (Routine); Ordered 01/27/22 Ordered By: Chava Rain Admission Data Admit Date/Time: 01/26/22 14:25 Attending Provider: Chava Rain Admit Provider: Chava Rain Primary Care Provider: Bart Brown
[2022-01-27] MEDS: FLUTICASONE FUROATE 200MCG 14 PUFFS/INHALER INH SCH (07:32)
[2022-01-27] MEDS: ASPIRIN 81 MG ECTAB PO SCH (07:33)
[2022-01-27] MEDS: FAMOTIDINE 20 MG TAB PO SCH (07:34)
[2022-01-27] MEDS: DOCUSATE SODIUM 100 MG CAP PO SCH (07:34)
[2022-01-27] MEDS: rOPINIRole HCL 2 MG TABLET PO SCH ×2 (07:35→13:35)
[2022-01-27] MEDS ORDERED: dexAMETHasone 4 MG TAB PO SCH (08:00)
[2022-01-27] MEDS ORDERED: SPIRONOLACTONE 12.5 MG TAB PO SCH (09:00)
[2022-01-27] MEDS ORDERED: CEROVITE ADV FORMULA TAB PO SCH (09:00)
[2022-01-27] MEDS ORDERED: MULTIVITAMIN TAB PO SCH (09:00)
[2022-01-27] MEDS ORDERED: FLUTICASONE PROPIONATE NA SPR 16 GM BTL SCH (09:00)
[2022-01-27] MEDS ORDERED: MONTELUKAST SODIUM 10 MG TABLET PO SCH (09:00)
[2022-01-27] MEDS: METOPROLOL SUCC 50MG EXT REL TAB PO SCH (10:07)
[2022-01-29] MEDS ORDERED: FUROSEMIDE 20 MG TAB PO SCH (09:00)
== END 2022-01-27 15:39 | disposition home health service (06) ==
LOC: PACUINP 10:46 → ASU 10:46 → 3W 20:17
DX: Z88.6 Allergy status to analgesic agent; M25.762 Osteophyte, left knee; I10 Essential (primary) hypertension; M17.12 Unilateral primary osteoarthritis, left knee; E78.5 Hyperlipidemia, unspecified; Z79.899 Other long term (current) drug therapy; Z88.2 Allergy status to sulfonamides

== ENCOUNTER 2022-12-14 08:55 | Observation (INO) ==
--- NOTE | 2022-11-14 15:10 | PAT Medication Instructions ---
Medication Instructions Date of Service November 14, 2022 Home Medications Medication Instructions Recorded amoxicillin 500 mg tablet 2,000 mg PO ONCE PRN prophylaxis 05/09/22 #4 tabs erythromycin 5 mg/gram (0.5 %) eye 1 applic ophthalmic (eye) Q6H 7 11/09/22 ointment days #3.5 grams oxycodone-acetaminophen 5 mg-325 1 tab PO Q4H PRN pain 3 days #5 11/09/22 mg tablet (Percocet) tabs albuterol sulfate 2.5 mg/3 mL (0.083 %) solution for nebulization 2.5 mg inhalation Q4 PRN Shortness Of Breath albuterol sulfate 90 mcg/actuation aerosol inhaler (Proventil HFA) 2 puff inhalation Q4 PRN Shortness Of Breath atorvastatin 10 mg tablet 10 mg PO HS calcium carbonate 600 mg-vitamin D3 5 mcg (200 unit) capsule (Calcium 600 + D(3)) 2 cap PO BID esomeprazole magnesium 20 mg capsule,delayed release (Nexium) 20 mg PO QAM fluticasone propionate 110 mcg/actuation HFA aerosol inhaler (Flovent HFA) 2 puff inhalation BID fluticasone propionate 50 mcg/actuation nasal spray,suspension (Flonase Allergy Relief) 2 spray intranasal BID hydrocortisone 2.5 % topical cream with perineal applicator (Proctozone-HC) 1 applic [place] BID PRN Hemorrhoids ketoconazole 2 % topical cream 1 applic topical BID PRN Rash lutein 25 mg-zeaxanthin 5 mg capsule (Ocuvite Lutein) 1 cap PO QAM magnesium oxide 400 mg PO QPM metoprolol succinate 50 mg tablet,extended release 24 hr 25 mg PO BID furosemide 20 mg tablet (Lasix) 20 mg PO 3XWK mirabegron 50 mg tablet,extended release 24 hr (Myrbetriq) 50 mg PO QPM spironolactone 25 mg tablet 12.5 mg PO QAM ferrous sulfate 325 mg (65 mg iron) tablet 325 mg PO QAM hydroxyzine HCl 10 mg tablet 10 mg PO QID PRN Itching ropinirole 2 mg tablet 2 mg PO TID restless leg amoxicillin 500 mg tablet 2,000 mg PO ONCE PRN prophylaxis solifenacin 5 mg tablet 5 mg PO QAM erythromycin 5 mg/gram (0.5 %) eye ointment 1 applic ophthalmic (eye) Q6H oxycodone-acetaminophen 5 mg-325 mg tablet (Percocet) 1 tab PO Q4H PRN pain ipratropium bromide 21 mcg (0.03 %) nasal spray 2 spray intranasal BID Continue as directed amoxicillin 500 mg tablet 2,000 mg PO ONCE PRN prophylaxis (if needed) STOP taking 2 weeks before surgery (or as soon as possible if surgery is within 2 weeks) lutein 25 mg-zeaxanthin 5 mg capsule (Ocuvite Lutein) 1 cap PO QAM STOP taking 24 hours before surgery ketoconazole 2 % topical cream 1 applic topical BID PRN Rash DO NOT take the morning of surgery calcium carbonate 600 mg-vitamin D3 5 mcg (200 unit) capsule (Calcium 600 + D(3)) 2 cap PO BID hydrocortisone 2.5 % topical cream with perineal applicator (Proctozone-HC) 1 applic [place] BID PRN Hemorrhoids furosemide 20 mg tablet (Lasix) 20 mg PO 3XWK spironolactone 25 mg tablet 12.5 mg PO QAM ferrous sulfate 325 mg (65 mg iron) tablet 325 mg PO QAM hydroxyzine HCl 10 mg tablet 10 mg PO QID PRN Itching solifenacin 5 mg tablet 5 mg PO QAM Take morning of surgery With a small sip of water, OTHERWISE NOTHING TO EAT OR DRINK AFTER MIDNIGHT: albuterol sulfate 2.5 mg/3 mL (0.083 %) solution for nebulization 2.5 mg inhalation Q4 PRN Shortness Of Breath (if needed) albuterol sulfate 90 mcg/actuation aerosol inhaler (Proventil HFA) 2 puff inhalation Q4 PRN Shortness Of Breath (if needed) esomeprazole magnesium 20 mg capsule,delayed release (Nexium) 20 mg PO QAM fluticasone propionate 110 mcg/actuation HFA aerosol inhaler (Flovent HFA) 2 puff inhalation BID fluticasone propionate 50 mcg/actuation nasal spray,suspension (Flonase Allergy Relief) 2 spray intranasal BID metoprolol succinate 50 mg tablet,extended release 24 hr 25 mg PO BID ropinirole 2 mg tablet 2 mg PO TID restless leg erythromycin 5 mg/gram (0.5 %) eye ointment 1 applic ophthalmic (eye) Q6H oxycodone-acetaminophen 5 mg-325 mg tablet (Percocet) 1 tab PO Q4H PRN pain (if needed) ipratropium bromide 21 mcg (0.03 %) nasal spray 2 spray intranasal BID Take evening before surgery albuterol sulfate 2.5 mg/3 mL (0.083 %) solution for nebulization 2.5 mg inhalation Q4 PRN Shortness Of Breath (if needed) albuterol sulfate 90 mcg/actuation aerosol inhaler (Proventil HFA) 2 puff inhalation Q4 PRN Shortness Of Breath (if needed) atorvastatin 10 mg tablet 10 mg PO HS calcium carbonate 600 mg-vitamin D3 5 mcg (200 unit) capsule (Calcium 600 + D(3)) 2 cap PO BID fluticasone propionate 110 mcg/actuation HFA aerosol inhaler (Flovent HFA) 2 puff inhalation BID fluticasone propionate 50 mcg/actuation nasal spray,suspension (Flonase Allergy Relief) 2 spray intranasal BID magnesium oxide 400 mg PO QPM metoprolol succinate 50 mg tablet,extended release 24 hr 25 mg PO BID mirabegron 50 mg tablet,extended release 24 hr (Myrbetriq) 50 mg PO QPM hydroxyzine HCl 10 mg tablet 10 mg PO QID PRN Itching (if needed) ropinirole 2 mg tablet 2 mg PO TID restless leg erythromycin 5 mg/gram (0.5 %) eye ointment 1 applic ophthalmic (eye) Q6H oxycodone-acetaminophen 5 mg-325 mg tablet (Percocet) 1 tab PO Q4H PRN pain (if needed) ipratropium bromide 21 mcg (0.03 %) nasal spray 2 spray intranasal BID Other Notes If you have any questions please call us at [phone] or [phone] or [phone] or [phone]
--- NOTE | 2022-11-16 12:21 | Anesthesiology Consultation ---
Date of Service November 16, 2022 Assessment & Plan (1) Encounter for pre-operative examination: Plan - cardiology 07/13/22 [facility]: "...feeling relatively well from a cardiac standpoint...longstanding and chronic atrial and ventricular ectopy...routine cardiology follow-up..." Outpatient joint assessment: Patient is currently scheduled for inpatient pathway. If re-evaluated pending system levels during current pandemic/surgeon requests outpatient pathway, patient is not recommended candidate for outpatient joint program from anesthesia standpoint. Chart Review Chart Review: Acceptable Risk for Surgery and Patient seen in Pre Admission Testing Teaching & Discussion Pre-Anesthesia Teaching/Discussion Notes: Instructed NPO after midnight before surgery, except medications with 15 cc of water. Medication instructions provided according to the PAT guidelines. History Surgery Operation Date: 12/14/22 14:15 Proposed Procedures p Revision Tibial Polyethylene Component, Lysis of Adhesions, Left Total Knee Arthroplasty - Chava Rain, Height/Weight Height: 5 ft 2 in Weight: 89.358 kg Allergies Allergy/AdvReac Type Severity Reaction Status Date / Time indomethacin Allergy Mild HEADACHE Verified 11/14/22 13:12 Sulfa (Sulfonamide Allergy Mild SORE SPOTS Verified 11/14/22 13:12 Antibiotics) IN MOUTH midazolam [From Versed] AdvReac Intermediate Nausea Verified 11/14/22 13:12 Medications Home Medications Medication Instructions Recorded Confirmed Last Taken albuterol sulfate 2.5 mg/3 mL 2.5 mg inhalation Q4 PRN Shortness 01/29/19 11/14/22 Unknown (0.083 %) solution for nebulization Of Breath albuterol sulfate 90 mcg/actuation 2 puff inhalation Q4 PRN Shortness 01/29/19 11/14/22 Unknown aerosol inhaler (Proventil HFA) Of Breath atorvastatin 10 mg tablet 10 mg PO HS 01/29/19 11/14/22 05/10/22 21:00 calcium carbonate 600 mg-vitamin 2 cap PO BID 01/29/19 11/14/22 05/10/22 21:00 D3 5 mcg (200 unit) capsule (Calcium 600 + D(3)) esomeprazole magnesium 20 mg 20 mg PO QAM 01/29/19 11/14/22 05/11/22 09:00 capsule,delayed release (Nexium) fluticasone propionate 110 2 puff inhalation BID 01/29/19 11/14/22 05/11/22 09:00 mcg/actuation HFA aerosol inhaler (Flovent HFA) fluticasone propionate 50 2 spray intranasal BID 01/29/19 11/14/22 05/11/22 09:00 mcg/actuation nasal spray,suspension (Flonase Allergy Relief) hydrocortisone 2.5 % topical cream 1 applic [place] BID PRN Hemorrhoids 01/29/19 11/14/22 Unknown with perineal applicator (Proctozone-HC) ketoconazole 2 % topical cream 1 applic topical BID PRN Rash 01/29/19 11/14/22 Unknown lutein 25 mg-zeaxanthin 5 mg 1 cap PO QAM 01/29/19 11/14/22 05/10/22 09:00 capsule (Ocuvite Lutein) magnesium oxide 400 mg PO QPM 01/29/19 11/14/22 05/10/22 21:00 metoprolol succinate 50 mg 25 mg PO BID 01/29/19 11/14/22 05/11/22 09:00 tablet,extended release 24 hr furosemide 20 mg tablet (Lasix) 20 mg PO 3XWK 11/15/21 11/14/22 05/10/22 09:00 mirabegron 50 mg tablet,extended 50 mg PO QPM 11/15/21 11/14/22 05/10/22 21:00 release 24 hr (Myrbetriq) spironolactone 25 mg tablet 12.5 mg PO QAM 11/15/21 11/14/22 05/10/22 09:00 ferrous sulfate 325 mg (65 mg 325 mg PO QAM 01/01/22 11/14/22 05/10/22 09:00 iron) tablet hydroxyzine HCl 10 mg tablet 10 mg PO QID PRN Itching 01/01/22 11/14/22 01/25/22 20:00 ropinirole 2 mg tablet 2 mg PO TID restless leg 01/01/22 11/14/22 05/11/22 09:00 amoxicillin 500 mg tablet 2,000 mg PO ONCE PRN prophylaxis 05/09/22 11/14/22 Unknown #4 tabs solifenacin 5 mg tablet 5 mg PO QAM 05/09/22 11/14/22 05/11/22 09:00 erythromycin 5 mg/gram (0.5 %) eye 1 applic ophthalmic (eye) Q6H 7 11/09/22 11/14/22 Unknown ointment days #3.5 grams oxycodone-acetaminophen 5 mg-325 1 tab PO Q4H PRN pain 3 days #5 11/09/22 11/14/22 Unknown mg tablet (Percocet) tabs ipratropium bromide 21 mcg (0.03 2 spray intranasal BID 11/14/22 11/14/22 Unknown %) nasal spray Past Medical History Medical History (Updated 11/16/22 @ 15:12 by Adwoa Sweeney PA-C) Asthma "mild"--rescue treatment last use > 3 months ago 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 follows with child care associate PRN. CKD (chronic kidney disease) stage 3, GFR 30-59 ml/min GERD (gastroesophageal reflux disease) controlled, stable per pt History of kidney stones NO SURGERY Hx of colonic polyp Hyperlipidemia Hypertension controlled, stable per pt Palpitations chronic atrial and ventricular ectopic beats, on beta samuel, follows with DR. GARCIA Peripheral neuropathy Prediabetes Restless leg syndrome Patient denies h/o stroke, seizures, heart attack, heart failure, blood clots or blood transfusions. Exercise / Class Metabolic Activity II 4-5 Yardwork/Stairs/Walk up hill (denies chest discomfort or shortness of breath with 1 FOS) Past Family History Family History Family/Other Family history of diabetes mellitus cousins Other No family history of adverse response to anesthesia Past Surgical History Surgical History History of arthroscopy of left knee History of arthroscopy of right knee History of cataract surgery RT/LEFT History of cholecystectomy History of colonoscopy History of esophagogastroduodenoscopy (EGD) History of hand surgery right hand, thumb removed ligament History of left knee replacement 01/26/2022 [facility]. SAB L4-L5 1 attempt + PNB. History of tonsillectomy and adenoidectomy History of tooth extraction History of wisdom tooth extraction S/P surgical manipulation of knee joint LEFT Status post bilateral foot surgery plantar fasciitis relief sx Past Anesthesia History No Hx of Anesthesia Complications and No Family Hx of Anesthesia Complications History of PONV No Hx of PONV and No Hx of Motion Sickness Social History Smoking Status: Never smoker Do You Dip or Chew Tobacco: No Hx Alcohol Use: Yes Alcohol type: beer, wine and hard liquor alcohol intake frequency: holidays/special occasions only Hx Substance Use: No substance use type: does not use Review of Systems Occasional snoring, denies witnessed apneas. Chronic palpitations, denies change or worsening since last cardiology appointment, denies associated shortness of breath, chest discomfort or shortness or breath. Patient denies chest pain, shortness of breath, dyspnea on exertion, fever, chills, cough, or wheezing. Physical Exam Vital Signs Vitals BP 121/84 P 62 TEMP 98.4 SP02 98% on RA RESP 17 Physical Full cervical extension range of motion without pain TMD 3.5 finger breadths Mallampati Score 2 Dentition: permanent bridge upper left side and several crowns, denies chipped or loose teeth, implants Lungs: normal respiratory effort. Good air movement, clear throughout to auscultation, no adventitious breath sounds Cardiac: regular rate and rhythm, no murmurs noted Carotid arteries: negative bruit bilat Lab Results Anesthesia Preop Results Results Anesthesia Widget: WBC 5.87 K/ul (4.8-10.8) 11/16/22 Hgb 14.1 g/dl (12.0-16.0) 11/16/22 Hct 41.5 % (37.0-47.0) 11/16/22 Plt 212 K/uL (130-400) 11/16/22 Na 138 mmol/L (136-145) 11/16/22 K 4.0 mmol/L (3.5-5.1) 11/16/22 Cl 102 mmol/L (98-107) 11/16/22 CO2 31 mmol/L (21-32) 11/16/22 BUN 19 mg/dl (6-23) 11/16/22 Creat 0.83 mg/dl (0.6-1.2) 11/16/22 Glucose Level 97 mg/dl (70-99(Fasting)) 11/16/22 PT 10.5 Seconds (9.0-12.0) 11/16/22 PTT 29.0 Seconds (21.0-31.0) 11/16/22 INR 1.0 (0.9-1.1) 11/16/22 Blood Type O Negative 11/16/22 Antibody Screen NEGATIVE 11/16/22 Testing Electrocardiogram Date: 11/16/22 Sinus bradycardia, rate 59 bpm Left axis deviation Chest X-Ray Date: 01/03/22 Lung volumes are normal. Lungs are clear. There is no pneumothorax or pleural effusion. Cardiac size is normal. Mediastinal contours are normal. There is no evidence for pulmonary edema. Cholecystectomy clips are incidentally noted. IMPRESSION: No acute cardiopulmonary findings. Echocardiogram Date: 08/04/20 EF 55-59% Grade I diastolic dysfunction Normal LV wall motion No significant valvular disease COVID-19 Risk Screen Screening Information COVID-19 Screen Date: 11/16/22 Exposure 21 Days Family/Household +COVID Last 21 Days: No Exposure 10 Days Any COVID Exposure Last 10 Days: No Symptoms Last 10 Days Experienced COVID Sx Last 10 Days: No + COVID 0-90 Days COVID + in Last 0-90 Days: No
--- NOTE | 2022-12-13 06:54 | History & Physical Report ---
Date of Service December 13, 2022 Assessment & Plan (1) Arthrofibrosis of knee joint: We will proceed with a revision left knee replacement surgery. Postoperatively she will be started on aspirin for DVT prophylaxis and kept overnight in the hospital for postop medical management. She plans to use energy physical therapy upon discharge. History of Present Illness Chief Complaint: Arthrofibrosis of the left knee. Primary Care Provider: Bart Brown MD Edel is a pleasant 72-year-old female, who I did a left knee replacement on in January of 2022. Unfortunately, she developed postoperative arthrofibrosis. I did a manipulation under anesthesia in February 2022. I was able to get good range of motion of the knee, but unfortunately, she continued to stiffen back up. She only has range of motion to about 95 degrees. She does not have much pain with the knee, but limited motion does bother her. It is hard for her to go up and down stairs. After failing conservative treatment, she has elected to proceed with revision knee replacement to include scar tissue removal and downsizing of the polyethylene component. Allergies Allergy/AdvReac Type Severity Reaction Status Date / Time indomethacin Allergy Mild HEADACHE Verified 11/27/22 06:14 Sulfa (Sulfonamide Allergy Mild SORE SPOTS Verified 11/27/22 06:14 Antibiotics) IN MOUTH midazolam [From Versed] AdvReac Intermediate Nausea Verified 11/27/22 06:14 Home Medications Medication Instructions Recorded Confirmed Type albuterol sulfate 2.5 mg/3 mL 2.5 mg inhalation Q4 PRN Shortness 01/29/19 11/14/22 History (0.083 %) solution for nebulization Of Breath albuterol sulfate 90 mcg/actuation 2 puff inhalation Q4 PRN Shortness 01/29/19 11/14/22 History aerosol inhaler (Proventil HFA) Of Breath atorvastatin 10 mg tablet 10 mg PO HS 01/29/19 11/14/22 History calcium carbonate 600 mg-vitamin 2 cap PO BID 01/29/19 11/14/22 History D3 5 mcg (200 unit) capsule (Calcium 600 + D(3)) esomeprazole magnesium 20 mg 20 mg PO QAM 01/29/19 11/14/22 History capsule,delayed release (Nexium) fluticasone propionate 110 2 puff inhalation BID 01/29/19 11/14/22 History mcg/actuation HFA aerosol inhaler (Flovent HFA) fluticasone propionate 50 2 spray intranasal BID 01/29/19 11/14/22 History mcg/actuation nasal spray,suspension (Flonase Allergy Relief) hydrocortisone 2.5 % topical cream 1 applic [place] BID PRN Hemorrhoids 01/29/19 11/14/22 History with perineal applicator (Proctozone-HC) ketoconazole 2 % topical cream 1 applic topical BID PRN Rash 01/29/19 11/14/22 History lutein 25 mg-zeaxanthin 5 mg 1 cap PO QAM 01/29/19 11/14/22 History capsule (Ocuvite Lutein) magnesium oxide 400 mg PO QPM 01/29/19 11/14/22 History metoprolol succinate 50 mg 25 mg PO BID 01/29/19 11/14/22 History tablet,extended release 24 hr furosemide 20 mg tablet (Lasix) 20 mg PO 3XWK 11/15/21 11/14/22 History mirabegron 50 mg tablet,extended 50 mg PO QPM 11/15/21 11/14/22 History release 24 hr (Myrbetriq) spironolactone 25 mg tablet 12.5 mg PO QAM 11/15/21 11/14/22 History ferrous sulfate 325 mg (65 mg 325 mg PO QAM 01/01/22 11/14/22 History iron) tablet hydroxyzine HCl 10 mg tablet 10 mg PO QID PRN Itching 01/01/22 11/14/22 History ropinirole 2 mg tablet 2 mg PO TID restless leg 01/01/22 11/14/22 History amoxicillin 500 mg tablet 2,000 mg PO ONCE PRN prophylaxis 05/09/22 11/14/22 Rx #4 tabs solifenacin 5 mg tablet 5 mg PO QAM 05/09/22 11/14/22 History erythromycin 5 mg/gram (0.5 %) eye 1 applic ophthalmic (eye) Q6H 7 11/09/22 11/14/22 Rx ointment days #3.5 grams oxycodone-acetaminophen 5 mg-325 1 tab PO Q4H PRN pain 3 days #5 11/09/22 11/14/22 Rx mg tablet (Percocet) tabs ipratropium bromide 21 mcg (0.03 2 spray intranasal BID 11/14/22 11/14/22 History %) nasal spray Past Med/Surg History Medical History Asthma "mild"--rescue treatment last use > 3 months ago 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 follows with animal caretaker PRN. CKD (chronic kidney disease) stage 3, GFR 30-59 ml/min GERD (gastroesophageal reflux disease) controlled, stable per pt History of kidney stones NO SURGERY Hx of colonic polyp Hyperlipidemia Hypertension controlled, stable per pt Palpitations chronic atrial and ventricular ectopic beats, on beta samuel, follows with DR. GARCIA Peripheral neuropathy Prediabetes Restless leg syndrome Surgical History History of arthroscopy of left knee History of arthroscopy of right knee History of cataract surgery RT/LEFT History of cholecystectomy History of colonoscopy History of esophagogastroduodenoscopy (EGD) History of hand surgery right hand, thumb removed ligament History of left knee replacement 01/26/2022 [facility]. SAB L4-L5 1 attempt + PNB. History of tonsillectomy and adenoidectomy History of tooth extraction History of wisdom tooth extraction S/P surgical manipulation of knee joint LEFT Status post bilateral foot surgery plantar fasciitis relief sx Family History Family/Other Family history of diabetes mellitus cousins Other No family history of adverse response to anesthesia Social History Smoking Status: Never smoker Second Hand Exposure: Yes (hx work environment/parents smoked); Do You Dip or Chew Tobacco: No; Hx Alcohol Use: Yes Alcohol type: beer, wine and hard liquor Hx Substance Use: No Preferred Language: Guyanese Communication Ability: Effective Filler Picker Required: No Beliefs That Will Affect Care: None Current Living Situation: Spouse Feels Safe at Home: Yes Assistive Devices: None Review of Systems All systems reviewed & are unremarkable except as noted in HPI & below. Physical Exam On physical examination of left knee, she has range of motion from about 5 to 95 degrees. She is a hard endpoint. Is difficult to get her beyond that.. Constitutional WD/WN, vitals as above Eyes PERRL, conjunctivae normal, anicteric sclerae ENMT external ear and nose normal, oropharynx normal Neck trachea midline, no thyromegaly Respiratory normal respiratory effort, lungs clear to auscultation Cardiovascular RRR, no murmur, no edema Gastrointestinal (Abdomen) normal bowel sounds, soft, nontender, no hepatosplenomegaly Skin no rashes, warm and dry Psychiatric A+Ox3, euthymic affect Results & Data Results & Data Laboratory Results . Diagnostic Findings . PG Care Time/CCT Total # of Minutes Spent Total Time Spent with Patient: Total time spent is greater than 50% in coordination of care (as documented) at patient's floor/unit and/or counseling patient: Coding Level of Care Code None Diagnoses Arthrofibrosis of knee joint M24.669
[~2022-12-14 08:55] MED LIST changes: -Ketorolac (*for OR use only*) 30 MG, dexAMETHasone 4 MG, KETAMINE HCL (**OR use only) 1... INFIL SCH; -LR 15ML/HR IV SCH; +LR 500ML BOLUS, THEN 15ML/HR IV SCH; +ORTHO JOINT MIX INFIL SCH
--- NOTE | 2022-12-14 11:00 | History & Physical Bridge Note ---
Date of Service December 14, 2022 History & Physical Bridge Note I have examined the patient, reviewed the History & Physical and in the interval since the performance of the History & Physical I have noted the following changes of clinical significance: no changes noted
[2022-12-14] MEDS ORDERED: PROPOFOL IV EMULSION 10 MG/ML 20 ML VIAL IV ONE ×3 (11:33→12:15)
[2022-12-14] MEDS ORDERED: LIDOCAINE 2% 2 ML VIAL/AMP(20MG/ML) INFIL ONE (11:33)
[2022-12-14] MEDS ORDERED: fentaNYL citrate PF 100 MCG/2 ML VIAL ONE (11:33)
[2022-12-14] MEDS ORDERED: ORTHO JOINT ANESTHETIC ONE (13:13)
--- NOTE | 2022-12-14 13:33 | Anesthesiology Consultation ---
Date of Service December 14, 2022 Assessment & Plan Chart Review Chart Review: Acceptable Risk for Surgery Consults Requested none History Surgery Operation Date: 12/14/22 12:00 Proposed Procedures p Revision Tibial Polyethylene Component, Lysis of Adhesions, Left Total Knee Arthroplasty - Chava Rain DO Height/Weight Height: 5 ft 2 in Weight: 91.2 kg Allergies Allergy/AdvReac Type Severity Reaction Status Date / Time indomethacin Allergy Mild HEADACHE Verified 12/14/22 10:25 Sulfa (Sulfonamide Allergy Mild SORE SPOTS Verified 12/14/22 10:25 Antibiotics) IN MOUTH midazolam [From Versed] AdvReac Intermediate Nausea Verified 12/14/22 10:25 Medications Home Medications Medication Instructions Recorded Confirmed Last Taken albuterol sulfate 2.5 mg/3 mL 2.5 mg inhalation Q4 PRN Shortness 01/29/19 12/14/22 Unknown (0.083 %) solution for nebulization Of Breath albuterol sulfate 90 mcg/actuation 2 puff inhalation Q4 PRN Shortness 01/29/19 12/14/22 11/26/22 aerosol inhaler (Proventil HFA) Of Breath atorvastatin 10 mg tablet 10 mg PO HS 01/29/19 12/14/22 12/13/22 19:00 calcium carbonate 600 mg-vitamin 2 cap PO BID 01/29/19 12/14/22 12/13/22 19:00 D3 5 mcg (200 unit) capsule (Calcium 600 + D(3)) esomeprazole magnesium 20 mg 20 mg PO QAM 01/29/19 12/14/22 12/14/22 06:30 capsule,delayed release (Nexium) fluticasone propionate 110 2 puff inhalation BID 01/29/19 12/14/22 12/13/22 06:30 mcg/actuation HFA aerosol inhaler (Flovent HFA) fluticasone propionate 50 2 spray intranasal BID 01/29/19 12/14/22 12/14/22 06:30 mcg/actuation nasal spray,suspension (Flonase Allergy Relief) hydrocortisone 2.5 % topical cream 1 applic [place] BID PRN Hemorrhoids 01/29/19 12/14/22 Unknown with perineal applicator (Proctozone-HC) ketoconazole 2 % topical cream 1 applic topical BID PRN Rash 01/29/19 12/14/22 Unknown lutein 25 mg-zeaxanthin 5 mg 1 cap PO QAM 01/29/19 12/14/22 12/10/22 08:00 capsule (Ocuvite Lutein) magnesium oxide 400 mg PO QPM 01/29/19 12/14/22 12/13/22 19:00 metoprolol succinate 50 mg 25 mg PO BID 01/29/19 12/14/22 12/14/22 06:30 tablet,extended release 24 hr furosemide 20 mg tablet (Lasix) 20 mg PO 3XWK 11/15/21 12/14/22 12/12/22 08:00 mirabegron 50 mg tablet,extended 50 mg PO QPM 11/15/21 12/14/22 12/13/22 19:00 release 24 hr (Myrbetriq) spironolactone 25 mg tablet 12.5 mg PO QAM 11/15/21 12/14/22 12/13/22 08:00 ferrous sulfate 325 mg (65 mg 325 mg PO QAM 01/01/22 12/14/22 12/13/22 08:00 iron) tablet hydroxyzine HCl 10 mg tablet 10 mg PO QID PRN Itching 01/01/22 12/14/22 01/25/22 20:00 ropinirole 2 mg tablet 2 mg PO TID restless leg 01/01/22 12/14/22 12/14/22 06:30 amoxicillin 500 mg tablet 2,000 mg PO ONCE PRN prophylaxis 05/09/22 12/14/22 Unknown #4 tabs solifenacin 5 mg tablet 5 mg PO QAM 05/09/22 12/14/22 12/13/22 08:00 erythromycin 5 mg/gram (0.5 %) eye 1 applic ophthalmic (eye) Q6H 7 11/09/22 12/14/22 Unknown ointment days #3.5 grams oxycodone-acetaminophen 5 mg-325 1 tab PO Q4H PRN pain 3 days #5 11/09/22 12/14/22 Unknown mg tablet (Percocet) tabs ipratropium bromide 21 mcg (0.03 2 spray intranasal BID 11/14/22 12/14/22 12/14/22 06:30 %) nasal spray Active Medications Generic Name Dose Route Start Last Admin Trade Name Freq PRN Reason Stop Dose Admin Acetaminophen 1,000 mg 12/14/22 06:00 12/14/22 10:34 Acetaminophen 500 Mg Tab PO 12/14/22 18:00 1,000 mg PREOP VIOLETA Administration Dexamethasone 8 mg 12/14/22 06:00 12/14/22 10:34 Dexamethasone 4 Mg Tab PO 12/14/22 18:00 8 mg PREOP VIOLETA Administration Famotidine 20 mg 12/14/22 06:00 12/14/22 10:34 Famotidine 20 Mg Tab PO 12/14/22 18:00 20 mg PREOP VIOLETA Administration Gabapentin 300 mg 12/14/22 06:00 12/14/22 10:34 Gabapentin 300 Mg Cap PO 12/14/22 18:00 300 mg PREOP VIOLETA Administration Lactated Ringer's 1,000 mls @ 15 mls/hr 12/14/22 06:00 12/14/22 13:21 Lr IV 12/14/22 18:00 Infused .Q24H VIOLETA Infusion Lactated Ringer's 1,000 mls @ 60 mls/hr 12/14/22 06:00 12/14/22 10:54 Lr IV 12/14/22 22:39 Not Given .[id number] VIOLETA Cefazolin Sodium 2,000 mg in 15 mls @ 3.75 mls/min 12/14/22 06:00 12/14/22 13:21 Ancef 2000mg IV 12/14/22 18:00 3.75 mls/min PREOP VIOLETA Administration Protocol Tranexamic Acid 1,000 mg in 100 mls @ 600 mls/hr 12/14/22 06:00 12/14/22 13:15 Tranexamic Acid / 0.7% Nacl IV 12/14/22 18:00 Infused TODAY@0600 VIOLETA Infusion NPO Date Last Intake of Fluids: 12/13/22 Time Last Intake of Fluids: 20:00 Date Last Intake of Solids: 12/13/22 Time Last Intake of Solids: 18:30 Past Medical History Medical History Asthma "mild"--rescue treatment last use > 3 months ago 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 follows with early breastfeeding care specialist PRN. CKD (chronic kidney disease) stage 3, GFR 30-59 ml/min GERD (gastroesophageal reflux disease) controlled, stable per pt History of kidney stones NO SURGERY Hx of colonic polyp Hyperlipidemia Hypertension controlled, stable per pt Palpitations chronic atrial and ventricular ectopic beats, on beta samuel, follows with DR. GARCIA Peripheral neuropathy Prediabetes Restless leg syndrome Past Family History Family History Family/Other Family history of diabetes mellitus cousins Other No family history of adverse response to anesthesia Past Surgical History Surgical History History of arthroscopy of left knee History of arthroscopy of right knee History of cataract surgery RT/LEFT History of cholecystectomy History of colonoscopy History of esophagogastroduodenoscopy (EGD) History of hand surgery right hand, thumb removed ligament History of left knee replacement 01/26/2022 [facility]. SAB L4-L5 1 attempt + PNB. History of tonsillectomy and adenoidectomy History of tooth extraction History of wisdom tooth extraction S/P surgical manipulation of knee joint LEFT Status post bilateral foot surgery plantar fasciitis relief sx Social History Smoking Status: Never smoker Do You Dip or Chew Tobacco: No Hx Alcohol Use: Yes Alcohol type: beer, wine and hard liquor alcohol intake frequency: holidays/special occasions only Hx Substance Use: No substance use type: does not use Physical Exam Vital Signs Last Vital Signs Temp 36.6 C 12/14/22 10:20 Pulse 73 12/14/22 10:20 Resp 20 12/14/22 10:20 BP 134/76 12/14/22 10:20 Pulse Ox 99 12/14/22 10:20 O2 Del Method Room Air 12/14/22 10:20
--- NOTE | 2022-12-14 14:32 | Operative Report ---
PG Post Operative Report Pre & Post Diagnosis Operation Date: 12/14/22 12:00 Pre-Op Diagnosis: Arthrofibrosis Left Total Knee Arthroplasty Post-Op Diagnosis: Arthrofibrosis Left Total Knee Arthroplasty I identified the patient and participated in the time-out.: Yes Procedure Operation Date: 12/14/22 12:00 Actual Procedures p left knee revision with exchange of polyethylene component and removal of excessive scar tissue. (Left) - Chava Rain DO Surgeon Chava Rain DO Fleecer Chava Arambula. See Estimated Blood Loss 30 Findings Consistent with Post-Op Diagnosis Specimens None Description of Procedure On December 14, 2022 you, arrived at [facility] for the procedure. She was seen in the critical holding area and the operative extremity identified and signed. She was given a preoperative antibiotic and a spinal anesthetic. She was taken back the operative room and laid on the table in supine position. She was brought under basic sedation. The left knee was prepped and draped in sterile fashion. A timeout was done. The patient and the operative extremity was properly identified. The previous midline incision was opened back up. Dissection was taken down through the fascia to the extensor mechanism. A medial parapatellar arthrotomy was done. I could only flex the knee to about 90 degrees. Significant time was spent removing scar tissue from the medial lateral gutters. Once all the scar tissue was removed I can flex the knee to almost 120 degrees. I was only limited by her larger leg. I still wanted to downsize the polyethylene component. A size 12 mm polyethylene component was then removed. A size 10 was then trialed. I felt we still had enough stability to proceed with a 10 mm implant. The final size 10 polyethylene implant was then snapped into place. The knee was brought through a full range of motion and felt to be stable. The tourniquet was then deflated. Significant time was spent obtaining hemostasis. The knee was then irrigated with a 3-minute Betadine lavage. The extensor mechanism was then closed with #1 Vicryl suture. The knee was then flexed to about 120 degrees which was again only limited by her larger leg. The skin was then closed with 2-0 Vicryl, 3 oh VueLock suture, and saleem. She is then placed in a soft compressive dressing. She was then transferred to a [facility]. She was taken to the postanesthesia care unit in stable condition. She tolerated procedure well. Chava Arambula PA-C, was present for the entire procedure. He was critical for patient positioning, prepping, draping, retraction exposure, wound closure and application of sterile dressing. I attest to the content of the Intraoperative Record and any orders documented therein. Any exceptions are noted below.
--- NOTE | 2022-12-14 15:19 | XRay Report ---
TWO VIEWS LEFT KNEE CLINICAL HISTORY: Postoperative examination. FINDINGS: AP and crosstable lateral portable views of the left knee are obtained. A left knee arthrop lasty is in near anatomic alignment. There has been undersurface remodeling of the patella. No acute fracture is seen. Periostitis is seen along the medial femoral metadiaphysis. There are expected post operative changes around the knee including skin clips, soft tissue edema, and subcutaneous gas. IMPRESSION: 1 Expected postoperative changes status post left knee arthroplasty. No acute fracture is seen. 2. Nonspecific periostitis is seen along the medial aspect of the distal femoral metadiaphysis. ACT 112: Negative or not required by law. Electronically signed by: Conrado Whyte M.D. 12/14/2022 3:17 PM
--- NOTE | 2022-12-14 16:02 | Anesthesiology Progress Note ---
Date of Service December 14, 2022 Anesthesia Post Procedure Vital Signs Vital Signs: Temp Pulse Pulse Resp BP Pulse Ox O2 Del Method 12/14/22 15:50 55 L 14 124/77 97 Room Air 12/14/22 15:40 36.3 C L 58 L 15 122/67 97 Room Air 12/14/22 15:30 59 L 20 132/66 97 Room Air 12/14/22 15:20 57 L 18 124/72 95 Room Air 12/14/22 15:10 56 L 14 129/72 100 Room Air 12/14/22 15:00 59 L 18 124/71 100 Oxymask 12/14/22 14:50 36.3 C L 68 17 123/70 95 Oxymask 12/14/22 10:20 36.6 C 73 20 134/76 99 Room Air O2 Flow Rate 12/14/22 15:50 12/14/22 15:40 12/14/22 15:30 12/14/22 15:20 12/14/22 15:10 12/14/22 15:00 4 12/14/22 14:50 6 12/14/22 10:20 Transfer of Care Handoff Completed per policy Notes Mental Status: alert / awake / arousable Patient Amnestic to Procedure: Yes Nausea / Vomiting: adequately controlled Pain: adequately controlled Airway Patency, RR, SpO2: stable & adequate BP & HR: stable & adequate Hydration State: stable & adequate Neuraxial Anesthesia: was administered and sensory block is resolving Anesthetic Complications: no major complications apparent
[2022-12-14] MEDS ORDERED: hydrOXYzine HCl 10 MG TAB PO PRN (16:20)
[2022-12-14] MEDS ORDERED: HYDROCORTISONE HC 2.5% CRM 30GM TUBE EXT PRN (16:20)
[2022-12-14] MEDS ORDERED: ALBUTEROL 0.083% NEBU SOLN 3 ML VIAL INH PRN (16:20)
[2022-12-14] MEDS ORDERED: ALBUTEROL HFA 8 GM INHALER INH PRN (16:20)
[2022-12-14] MEDS ORDERED: MAGNESIUM HYDROXIDE SUSP 30 ML UDC PO PRN (16:20)
[2022-12-14] MEDS ORDERED: ONDANSETRON INJ 2 MG/ML 2 ML VIAL IV PRN (16:20)
[2022-12-14] MEDS ORDERED: KETOCONAZOLE 2% CR 15 GM TUBE EXT PRN (16:20)
[2022-12-14] MEDS ORDERED: bisacodyL 10 MG SUPP PR PRN (16:20)
[2022-12-14] MEDS ORDERED: HYDROmorphone INJ 0.5 MG/0.5 ML SYR IV PRN (16:20)
[2022-12-14] MEDS ORDERED: METOCLOPRAMIDE HCL INJ 5 MG/ML 2 ML VIAL IV PRN (16:20)
[2022-12-14] MEDS ORDERED: NALOXONE HCL 0.4 MG/1 ML VIAL/CARP IV PRN (16:20)
[2022-12-14] MEDS: KETOROLAC TROMETHAMINE 15 MG/ML VIAL IV SCH ×2 (17:14→20:54)
[2022-12-14] MEDS: SODIUM CHLORIDE 0.9% 1000ML 1,000 ML IV SCH (17:15)
[2022-12-14] MEDS ORDERED: dexAMETHasone 4 MG TAB PO ONE (18:00)
[2022-12-14] MEDS: ERYTHROMYCIN OP OINT 5 MG/GM 3.5 GM TUBE OP SCH ×2 (18:20→20:53)
[2022-12-14] MEDS ORDERED: FUROSEMIDE 20 MG TAB PO SCH (18:45)
[2022-12-14] MEDS: ASPIRIN 81 MG ECTAB PO SCH (19:24)
[2022-12-14] MEDS: METOPROLOL SUCC 25MG EXT REL TAB PO SCH (19:25)
[2022-12-14] MEDS: FLUTICASONE PROPIONATE NA SPR 16 GM BTL SCH (19:27)
[2022-12-14] MEDS: DOCUSATE SODIUM 100 MG CAP PO SCH (19:27)
[2022-12-14] MEDS: rOPINIRole HCL 2 MG TABLET PO SCH (19:28)
[2022-12-14] MEDS: oxyCODONE HCL IR 5 MG TAB (IMMEDIATE RELEASE) PO PRN (19:41)
[2022-12-14] MEDS: ceFAZolin 2000MG 2,000 MG/15 ML SYR IV SCH (20:52)
[2022-12-14] MEDS: ACETAMINOPHEN 500 MG TAB PO SCH (20:54)
[2022-12-14] MEDS ORDERED: VIBEGRON 75 MG TAB PO SCH (21:00)
[2022-12-14] MEDS ORDERED: SENNA 8.6 MG TAB PO SCH (21:00)
[2022-12-14] MEDS ORDERED: MAGNESIUM OXIDE 400 MG TAB PO SCH (21:00)
[2022-12-14] MEDS ORDERED: ATORVASTATIN 10 MG TAB PO SCH (21:00)
[2022-12-14] MEDS ORDERED: IPRATROPIUM BROMIDE HFA INHALER INH SCH (21:00)
[2022-12-15] MEDS: oxyCODONE HCL IR 5 MG TAB (IMMEDIATE RELEASE) PO PRN (01:05)
[2022-12-15] MEDS: SODIUM CHLORIDE 0.9% 1000ML 1,000 ML IV SCH (04:06)
[2022-12-15] MEDS: KETOROLAC TROMETHAMINE 15 MG/ML VIAL IV SCH (04:19)
[2022-12-15] MEDS: ERYTHROMYCIN OP OINT 5 MG/GM 3.5 GM TUBE OP SCH (04:20)
[2022-12-15] MEDS: ceFAZolin 2000MG 2,000 MG/15 ML SYR IV SCH (05:36)
[2022-12-15] MEDS: ACETAMINOPHEN 500 MG TAB PO SCH (05:37)
[2022-12-15] MEDS: rOPINIRole HCL 2 MG TABLET PO SCH (07:50)
[2022-12-15] MEDS: DOCUSATE SODIUM 100 MG CAP PO SCH (07:51)
[2022-12-15] MEDS: METOPROLOL SUCC 25MG EXT REL TAB PO SCH (07:51)
[2022-12-15] MEDS: ASPIRIN 81 MG ECTAB PO SCH (07:52)
[2022-12-15] MEDS: FLUTICASONE PROPIONATE NA SPR 16 GM BTL SCH (07:52)
--- NOTE | 2022-12-15 08:02 | Orthopedic Progress Note ---
Date of Service December 15, 2022 Assessment & Plan (1) Status post revision of total replacement of left knee: Overall she is doing fairly well. She is not having too much pain in the knee. She will be seen by physical therapy today for ambulation and range of motion exercises. She is on aspirin for DVT prophylaxis. She is set up to see home physical therapy on Saturday. She can be discharged home later today. She will follow-up with orthopedics in 2 weeks. Dori Hollingsworth was seen and examined at bedside this morning. Overall she is doing fairly well. She has been up and ambulating to the bathroom. Her pain is well controlled. She has no complaints.. Review of Systems All systems reviewed & are unremarkable except as noted in HPI & below. Physical Exam On physical examination of the left knee, the dressing is clean and dry. Her leg is out full extension. She has active dorsiflexion plantarflexion of her left ankle.. Results & Data Results & Data Laboratory Results . Diagnostic Findings . PG Care Time/CCT Total # of Minutes Spent Total Time Spent with Patient: Total time spent is greater than 50% in coordination of care (as documented) at patient's floor/unit and/or counseling patient: Coding Level of Care Code 46469 Post Operative Follow-Up Diagnoses Status post revision of total replacement of left knee Z96.652
--- NOTE | 2022-12-15 08:03 | Discharge Summary ---
Date of Service December 15, 2022 Admission HPI (Per Admitting) Edel is a pleasant 72-year-old female, who I did a left knee replacement on in January of 2022. Unfortunately, she developed postoperative arthrofibrosis. I did a manipulation under anesthesia in February 2022. I was able to get good range of motion of the knee, but unfortunately, she continued to stiffen back up. She only has range of motion to about 95 degrees. She does not have much pain with the knee, but limited motion does bother her. It is hard for her to go up and down stairs. After failing conservative treatment, she has elected to proceed with revision knee replacement to include scar tissue removal and downsizing of the polyethylene component. Admission Exam (Per Admitting) On physical examination of left knee, she has range of motion from about 5 to 95 degrees. She is a hard endpoint. Is difficult to get her beyond that.. Principal Diagnosis Same as "Discharge Diagnosis" noted below under Discharge Instructions. Discharge Exam On physical examination of the left knee, the dressing is clean and dry. Her leg is out full extension. She has active dorsiflexion plantarflexion of her left ankle.. Discharge Data Procedures Performed Operation Date: 12/14/22 12:00 Actual Procedures p Revision Tibial Polyethylene Component, Lysis of Adhesions Left Total Knee Arthroplasty(Left) - Chava Rain DO Ordered Studies 12/14/22 05:00 US - OR guided needle placemen Routine Hospital Course (1) Status post revision of total replacement of left knee: On December 14, 2022 Edel arrived at [facility] and underwent a revision left knee replacement without complication. She had a spinal anesthetic. Postoperatively she was started on aspirin for DVT prophylaxis and transferred to the general orthopedic floors. Her hospital course was uneventful. On postop day #1, her vital signs were stable and her pain was well controlled. She was able to participate well with physical therapy doing ambulation and range of motion exercises. She was then discharged home. She will follow-up with orthopedics in 2 weeks. PG Care Time/CCT Total # of Minutes Spent Total Time Spent with Patient: Total time spent is greater than 50% in coordination of care (as documented) at patient's floor/unit and/or counseling patient: Discharge Plan Discharge Items Patient Disposition: Home - Home Health Services Reason For Visit: POST OP Discharge Diagnosis: Revision left knee replacement Activity: Per Instructions section Non-emergency contact: Surgeon Call non-emergency contact if: your wound has increased redness and your wound has increased drainage Follow-up/Referrals: Bart Brown MD [Primary Care Provider] - Diet: Regular Addtl Attending Provider Instructions: Activity and Therapy Recommendations: * If you are using [facility] then therapy will be provided at your home until they feel you have accomplished all of your goals. * If you are using [facility] then Physical Therapy will be provided until they feel you are ready to start Outpatient Physical Therapy. * If you are not using home therapy then Outpatient Physical Therapy should start about 3-5 days from your day of surgery. Therapy will last about 6-10 weeks * It is important not to put a pillow under your knee when you are relaxing or sleeping. It is just as important to make sure you are getting your knee perfectly straight as it is to regain your knee bend. * You were shown a series of exercises in the hospital. Do these exercises three times each day including the exercises you were shown in physical therapy. * Get up and walk several times each day. For the first four weeks, try not to stand or walk for more than one hour at a time. If you do stand or walk for more than one hour, you will not hurt anything, but your leg will likely swell. * As you feel comfortable, you may change from the walker or crutches to a cane and then to independent walking. Medications: * Narcotic You will likely be sent home from the hospital with a prescription for the narcotic pain medication that worked best throughout your stay. * Aspirin Most patients will be required to take Aspirin 81mg twice a day for 6 weeks after surgery. This is obtained [id number] and a prescription is not necessary. * Other medications may be prescribed for specific circumstances. If you have any questions, please call the office at . * Resume previous home medications unless otherwise instructed TEDs/Elastic Stockings: The white elastic stockings help limit swelling and prevent blood clots from forming in your legs.~ The more you wear them, the more they work. Wear them for six weeks. Dressing Care: The dressing can be changed after physical therapy on postop day #1. Daily dry dressing changes for a few days, especially if the incision is still draining some. If the incision is not draining then you may leave the saleem open to air. If there is a little bit of drainage or if the saleem are getting stuck on your clothing then cover the incision with a dry dressing. The saleem will be removed at your 2 week follow-up appointment. Showering: You may shower 5 days from the day of surgery as long as the incision is no longer draining. You may shower with the saleem exposed. Let soapy water run over the saleem and pat them dry. Do not scrub or soak the incision. Things To Watch For: * Drainage from the incision site that occurs more than one week after your surgery. * Increased redness at the incision site. * Fever above 102 degrees Fahrenheit. * Unusual chest pain or shortness of breath. * Call [facility] at with any of the above problems Follow-Up Visit: Follow-up with Dr. Rain's PA (Chava Arambula) 2-3 weeks after your day of surgery. He will remove your saleem and answer any questions. If you have any additional questions or concerns, Dr Rain is usually in the office at the same time and will be available An appointment was probably scheduled when you signed-up for surgery in the office. If you have any questions call Office Instructions: More detailed instructions as well as Frequently Asked Questions were provided in a folder by our office when you signed-up for surgery. Please review these instructions when you get home. If you have any further questions or concerns, please feel free to call the office at [phone] Pending Studies at Discharge: No Stand-Alone Forms: My [facility] Medications and DC Order Prescriptions: New aspirin 81 mg Tablet,Delayed Release (Dr/Ec) 81 mg PO BID 42 Days Qty: 84 0RF oxycodone-acetaminophen 5-325 mg tablet 1 tab PO Q6H PRN (Reason: pain) Qty: 30 0RF Continued amoxicillin 500 mg tablet 2,000 mg PO ONCE PRN (Reason: prophylaxis) Qty: 4 2RF Rx Instructions: ONE HOUR PRIOR TO DENTAL PROCEDURE erythromycin 5 mg/gram (0.5 %) ointment 1 applic ophthalmic (eye) Q6H 7 Days Qty: 3.5 1RF Rx Instructions: Please apply to upper eyelid incisions following surgery. furosemide [Lasix] 20 mg tablet 20 mg PO 3XWK spironolactone 25 mg tablet 12.5 mg PO QAM Myrbetriq 50 mg tablet extended release 24 hr 50 mg PO QPM albuterol sulfate 2.5 mg /3 mL (0.083 %) Solution For Nebulization 2.5 mg INHALATION Q4 PRN (Reason: Shortness Of Breath) atorvastatin 10 mg Tablet 10 mg PO HS metoprolol succinate 50 mg Tablet Extended Release 24 Hr 25 mg PO BID hydrocortisone [Proctozone-HC] 2.5 % Cream With Perineal Applicator 1 applic VT BID PRN (Reason: Hemorrhoids) albuterol sulfate [Proventil HFA] 90 mcg/actuation Hfa Aerosol Inhaler 2 puff INHALATION Q4 PRN (Reason: Shortness Of Breath) ketoconazole 2 % Cream 1 applic TOPICAL BID PRN (Reason: Rash) fluticasone propionate [Flonase Allergy Relief] 50 mcg/actuation [place],Suspension 2 spray INTRANASAL BID fluticasone propionate [Flovent HFA] 110 mcg/actuation Hfa Aerosol Inhaler 2 puff INHALATION BID esomeprazole magnesium [Nexium] 20 mg Capsule,Delayed Release(Dr/Ec) 20 mg PO QAM Calcium 600 + D(3) 600 mg calcium- 200 unit Capsule 2 cap PO BID Hold Instructions: SURGERY magnesium oxide 400 mg magnesium Capsule 400 mg PO QPM lutein-zeaxanthin [Ocuvite Lutein 25] 25-5 mg Capsule 1 cap PO QAM solifenacin 5 mg Tablet 5 mg PO QAM ipratropium bromide 21 mcg (0.03 %) [place],Non-Aerosol 2 spray INTRANASAL BID Rx Instructions: administer into each nostril ropinirole 2 mg Tablet 2 mg PO TID ferrous sulfate 325 mg (65 mg iron) Tablet 325 mg PO QAM Hold Instructions: SURGERY hydroxyzine HCl 10 mg Tablet 10 mg PO QID PRN (Reason: Itching) Discontinued oxycodone-acetaminophen [Percocet] 5-325 mg tablet 1 tab PO Q4H PRN (Reason: pain) 3 Days Qty: 5 0RF Rx Instructions: Initial therapy. Admission Data Admit Date/Time: 12/14/22 14:51 Attending Provider: Chava Rain Admit Provider: Chava Rain Primary Care Provider: Bart Brown
[2022-12-15] MEDS ORDERED: OXYBUTYNIN CHLORIDE XL 5 MG TABCR PO SCH (09:00)
[2022-12-15] MEDS ORDERED: SPIRONOLACTONE 12.5 MG TAB PO SCH (09:00)
[2022-12-15] MEDS ORDERED: FLUTICASONE FUROATE 200MCG 14 PUFFS/INHALER INH SCH (09:00)
[2022-12-15] MEDS ORDERED: NON-FORMULARY MEDICATION (Lutein-Zeaxanthin [Ocuvite Lutein 25] 25-5 mg Capsule) PO SCH (09:00)
[2022-12-15] MEDS ORDERED: MULTIVITAMIN TAB PO SCH (09:00)
== END 2022-12-15 12:55 | disposition home health service (06) ==
LOC: ASU 08:55 → 3E 08:55

== ENCOUNTER 2024-04-13 07:36 | Observation (INO) ==
--- NOTE | 2024-03-11 09:43 | PAT Medication Instructions ---
Medication Instructions Date of Service March 11, 2024 Home Medications Medication Instructions Recorded amoxicillin 500 mg tablet 2,000 mg (4 x 500 mg) PO ONCE PRN 05/09/22 prophylaxis #4 tabs albuterol sulfate 2.5 mg/3 mL (0.083 %) solution for nebulization 2.5 mg inhalation Q4 PRN albuterol sulfate 90 mcg/actuation aerosol inhaler (Proventil HFA) 2 puff inhalation Q4 PRN atorvastatin 10 mg tablet 10 mg PO HS 01/29/19 [History Confirmed 03/06/24] calcium carbonate 600 mg-vitamin D3 5 mcg (200 unit) capsule (Calcium 600 + D(3)) 2 cap PO BID esomeprazole magnesium 20 mg capsule,delayed release (Nexium) 20 mg PO QAM fluticasone propionate 50 mcg/actuation nasal spray,suspension (Flonase Allergy Relief) 2 spray intranasal BID hydrocortisone 2.5 % topical cream with perineal applicator (Proctozone-HC) 1 applic SD BID PRN ketoconazole 2 % topical cream 1 applic topical BID PRN lutein 25 mg-zeaxanthin 5 mg capsule (Ocuvite Lutein) 1 cap PO QAM magnesium oxide 400 mg PO QPM metoprolol succinate 50 mg tablet,extended release 24 hr 25 mg PO BID furosemide 20 mg tablet (Lasix) 20 mg PO 3XWK mirabegron 50 mg tablet,extended release 24 hr (Myrbetriq) 50 mg PO QPM spironolactone 25 mg tablet 12.5 mg PO QAM ferrous sulfate 325 mg (65 mg iron) tablet 325 mg PO QAM hydroxyzine HCl 10 mg tablet 10 mg PO QID PRN ropinirole 2 mg tablet 2 mg PO TID amoxicillin 500 mg tablet 2,000 mg (4 x 500 mg) PO ONCE PRN solifenacin 5 mg tablet 5 mg PO QAM ipratropium bromide 21 mcg (0.03 %) nasal spray 2 spray intranasal BID alendronate 70 mg tablet (Fosamax) 70 mg PO WK fluticasone furoate 100 mcg/actuation blister powder for inhalation (Arnuity El lipta) 1 inh inhalation QAM gabapentin 400 mg capsule 400 mg PO BID semaglutide 0.25 mg or 0.5 mg (2 mg/1.5 mL) subcutaneous pen injector 0.5 mg subcut WK STOP 7 days before surgery semaglutide 0.25 mg or 0.5 mg (2 mg/1.5 mL) subcutaneous pen injector 0.5 mg subcut WK Continue as directed amoxicillin 500 mg tablet 2,000 mg (4 x 500 mg) PO ONCE PRN(if needed) STOP taking 2 weeks before surgery (or as soon as possible if surgery is within 2 weeks) lutein 25 mg-zeaxanthin 5 mg capsule (Ocuvite Lutein) 1 cap PO QAM STOP taking 24 hours before surgery hydrocortisone 2.5 % topical cream with perineal applicator (Proctozone-HC) 1 applic SD BID PRN ketoconazole 2 % topical cream 1 applic topical BID PRN DO NOT take the morning of surgery calcium carbonate 600 mg-vitamin D3 5 mcg (200 unit) capsule (Calcium 600 + D(3)) 2 cap PO BID furosemide 20 mg tablet (Lasix) 20 mg PO 3XWK spironolactone 25 mg tablet 12.5 mg PO QAM ferrous sulfate 325 mg (65 mg iron) tablet 325 mg PO QAM solifenacin 5 mg tablet 5 mg PO QAM alendronate 70 mg tablet (Fosamax) 70 mg PO WK Take morning of surgery With a small sip of water, OTHERWISE NOTHING TO EAT OR DRINK AFTER MIDNIGHT: albuterol sulfate 2.5 mg/3 mL (0.083 %) solution for nebulization 2.5 mg inhalation Q4 PRN(if needed) albuterol sulfate 90 mcg/actuation aerosol inhaler (Proventil HFA) 2 puff inhalation Q4 PRN(use if needed; please bring with you to hospital day of surgery if possible) esomeprazole magnesium 20 mg capsule,delayed release (Nexium) 20 mg PO QAM fluticasone propionate 50 mcg/actuation nasal spray,suspension (Flonase Allergy Relief) 2 spray intranasal BID metoprolol succinate 50 mg tablet,extended release 24 hr 25 mg PO BID hydroxyzine HCl 10 mg tablet 10 mg PO QID PRN(if needed) ropinirole 2 mg tablet 2 mg PO TID ipratropium bromide 21 mcg (0.03 %) nasal spray 2 spray intranasal BID fluticasone furoate 100 mcg/actuation blister powder for inhalation (Arnuity Ellipta) 1 inh inhalation QAM gabapentin 400 mg capsule 400 mg PO BID Take evening before surgery albuterol sulfate 2.5 mg/3 mL (0.083 %) solution for nebulization 2.5 mg inhalation Q4 PRN(if needed) albuterol sulfate 90 mcg/actuation aerosol inhaler (Proventil HFA) 2 puff inhalation Q4 PRN(if needed) calcium carbonate 600 mg-vitamin D3 5 mcg (200 unit) capsule (Calcium 600 + D(3)) 2 cap PO BID fluticasone propionate 50 mcg/actuation nasal spray,suspension (Flonase Allergy Relief) 2 spray intranasal BID magnesium oxide 400 mg PO QPM metoprolol succinate 50 mg tablet,extended release 24 hr 25 mg PO BID mirabegron 50 mg tablet,extended release 24 hr (Myrbetriq) 50 mg PO QPM hydroxyzine HCl 10 mg tablet 10 mg PO QID PRN(if needed) ropinirole 2 mg tablet 2 mg PO TID ipratropium bromide 21 mcg (0.03 %) nasal spray 2 spray intranasal BID gabapentin 400 mg capsule 400 mg PO BID Other Notes If you have any questions please call us at [phone] or [phone] or [phone] or [phone]
--- NOTE | 2024-03-18 12:32 | Anesthesiology Consultation ---
Date of Service March 18, 2024 Assessment & Plan (1) Encounter for pre-operative examination: - Check BSG AM DOS - Infectious disease screening: Per assessment on 03/18/24: No known recent infectious disease contacts or current infectious disease symptoms. - Outpatient joint assessment: Pt currently scheduled for inpatient pathway. If surgeon requests review for outpatient joint pathway, patient is not recommended candidate for outpatient joint program from anesthesia standpoint based on available information. - Semaglutide instructions: Patient informed by PAT to stop 7 days prior to surgery- voiced understanding. DOS 04/13/24. Advised last dose to be 03/31/24 - Cardiology visit (08/21/23): "Hypertension..Hyperlipidemia..Chronic atrial and ventricular ectopic beats..Familial history of aortic disease... 73 year old year old female with longstanding hypertension and chronic atrial ventricular ectopy , hypertension currently quiescent. Blood pressures generally controlled but noted recent cotton wool spots on ocular exam.. PLAN: Continue current therapies.. Add lisinopril 2.5 mg per day to regimen. Patient report tolerance. BMP 2 weeks after beginning to assess potassium levels given spironolactone use.. Encouraged increased activity and congratulated weight loss attempts.. DISPOSITION: Return 9 months" Chart Review Chart Review: Acceptable Risk for Surgery and Patient seen in Pre Admission Testing Teaching & Discussion Pre-Anesthesia Teaching/Discussion Notes: Instructed NPO after midnight before surgery,except medications with 15 cc of water. Medication instructions provided according to the PAT guidelines. History Surgery Operation Date: 04/13/24 08:15 Proposed Procedures p Right Total Knee Arthroplasty - Chava Rain, Height/Weight Height: 5 ft 2 in Weight: 107.1 kg Allergies Allergy/AdvReac Type Severity Reaction Status Date / Time Sulfa (Sulfonamide Allergy Mild Sore spots Verified 03/13/24 14:18 Antibiotics) in mouth midazolam [From Versed] AdvReac Intermediate Nausea Verified 03/06/24 09:37 indomethacin AdvReac Mild Headache Verified 03/13/24 14:18 Medications Home Medications Medication Instructions Recorded Confirmed Last Taken albuterol sulfate 2.5 mg/3 mL 2.5 mg inhalation Q4 PRN Shortness 01/29/19 03/06/24 Unknown (0.083 %) solution for nebulization Of Breath albuterol sulfate 90 mcg/actuation 2 puff inhalation Q4 PRN Shortness 01/29/19 03/06/24 11/26/22 aerosol inhaler (Proventil HFA) Of Breath atorvastatin 10 mg tablet 10 mg PO HS 01/29/19 03/06/24 12/13/22 19:00 calcium carbonate 600 mg-vitamin 2 cap PO BID 01/29/19 03/06/24 12/13/22 19:00 D3 5 mcg (200 unit) capsule (Calcium 600 + D(3)) esomeprazole magnesium 20 mg 20 mg PO QAM 01/29/19 03/06/24 12/14/22 06:30 capsule,delayed release (Nexium) fluticasone propionate 50 2 spray intranasal BID 01/29/19 03/06/24 12/14/22 06:30 mcg/actuation nasal spray,suspension (Flonase Allergy Relief) hydrocortisone 2.5 % topical cream 1 applic MO BID PRN Hemorrhoids 01/29/19 03/06/24 Unknown with perineal applicator (Proctozone-HC) ketoconazole 2 % topical cream 1 applic topical BID PRN Rash 01/29/19 03/06/24 Unknown lutein 25 mg-zeaxanthin 5 mg 1 cap PO QAM 01/29/19 03/06/24 12/10/22 08:00 capsule (Ocuvite Lutein) magnesium oxide 400 mg PO QPM 01/29/19 03/06/24 12/13/22 19:00 metoprolol succinate 50 mg 25 mg PO BID 01/29/19 03/06/24 12/14/22 06:30 tablet,extended release 24 hr furosemide 20 mg tablet (Lasix) 20 mg PO 3XWK 11/15/21 03/06/24 12/12/22 08:00 mirabegron 50 mg tablet,extended 50 mg PO QPM 11/15/21 03/06/24 12/13/22 19:00 release 24 hr (Myrbetriq) spironolactone 25 mg tablet 12.5 mg PO QAM 11/15/21 03/06/24 12/13/22 08:00 ferrous sulfate 325 mg (65 mg 325 mg PO QAM 01/01/22 03/06/24 12/13/22 08:00 iron) tablet hydroxyzine HCl 10 mg tablet 10 mg PO QID PRN Itching 06/2003/06/24 01/25/22 20:00 ropinirole 2 mg tablet 2 mg PO TID restless leg 01/01/22 03/06/24 12/14/22 06:30 amoxicillin 500 mg tablet 2,000 mg (4 x 500 mg) PO ONCE PRN 05/09/22 03/06/24 Unknown prophylaxis #4 tabs solifenacin 5 mg tablet 5 mg PO QAM 05/09/22 03/06/24 12/13/22 08:00 ipratropium bromide 21 mcg (0.03 2 spray intranasal BID 11/14/22 03/06/24 12/14/22 06:30 %) nasal spray alendronate 70 mg tablet (Fosamax) 70 mg PO WK 03/06/24 03/06/24 Unknown fluticasone furoate 100 1 inh inhalation QAM 03/06/24 03/06/24 Unknown mcg/actuation blister powder for inhalation (Arnuity Ellipta) gabapentin 400 mg capsule 400 mg PO BID 03/06/24 03/06/24 Unknown semaglutide 0.25 mg or 0.5 mg (2 0.5 mg subcut WK 03/06/24 03/06/24 Unknown mg/1.5 mL) subcutaneous pen injector Past Medical History Medical History Asthma Chronic back pain Congenital defect with L5-S1 fused Follows with rn wound care PRN CKD (chronic kidney disease) stage 3, GFR 30-59 ml/min Ectopic beats Chronic atrial and ventricular ectopic beats Follows with [facility] cardio GERD (gastroesophageal reflux disease) Controlled, "stable" History of kidney stones No surgical intervention Hx of colonic polyp Hyperlipidemia Hypertension Osteoarthritis Peripheral neuropathy Restless leg syndrome Type 2 diabetes mellitus Exercise / Class Metabolic Activity III < 4 Walking/Shop/Light housework Past Family History Family History Family/Other Family history of diabetes mellitus cousins Other No family history of adverse response to anesthesia Past Surgical History Surgical History History of arthroscopy of left knee History of arthroscopy of right knee History of cataract surgery R/L History of cholecystectomy History of colonoscopy History of esophagogastroduodenoscopy (EGD) History of hand surgery right hand, thumb removed ligament History of left knee replacement 01/26/2022 [facility]. SAB L4-L5 1 attempt + PNB History of tonsillectomy and adenoidectomy History of tooth extraction History of wisdom tooth extraction S/P surgical manipulation of knee joint Left Status post bilateral foot surgery R/t plantar fasciitis Status post revision of total replacement of left knee Left TKA Revision Tibial Polyethylene Component, VICTOR MANUEL (12/14/22): SAB at L3-4 1 attempt + regional at [facility] Past Anesthesia History No Family Hx of Anesthesia Complications and Other (Post-op hypotension with previous knee surgery) History of PONV No Hx of Motion Sickness and History of PONV ([place] r/t versed per patient) Social History Smoking Status: Never smoker Do You Dip or Chew Tobacco: No Hx Alcohol Use: Yes alcohol intake frequency: holidays/special occasions only (Very rare) Hx Substance Use: No substance use type: does not use Review of Systems Patient denies chest pain, shortness of breath, fever, chills, cough, wheezing, palpitations. Physical Exam Vital Signs BP 107/70 P 72 TEMP 97.8 SP02 96%RA RESP 16 Physical Full cervical extension range of motion. Full TMJ range of motion. TMD 3 finger breaths Mallampati Score I Dentition: intact, crowns, implants Lungs: clear throughout to auscultation Cardiac: regular rate and rhythm, no murmurs noted Spine: normal Carotid arteries: negative bruit Extremities: no LE edema Lab Results Anesthesia Preop Results Results Anesthesia Widget: WBC 6.31 K/ul (4.8-10.8) 03/18/24 Hgb 13.1 g/dl (12.0-16.0) 03/18/24 Hct 40.3 % (37.0-47.0) 03/18/24 Plt 213 K/uL (130-400) 03/18/24 Na 139 mmol/L (136-145) 03/18/24 K 3.8 mmol/L (3.5-5.1) 03/18/24 Cl 103 mmol/L (98-107) 03/18/24 CO2 30 mmol/L (21-32) 03/18/24 BUN 19 mg/dl (6-23) 03/18/24 Creat 0.82 mg/dl (0.6-1.2) 03/18/24 Glucose Level 113 mg/dl (70-99(Fasting)) H 03/18/24 PT 10.3 Seconds (9.0-12.0) 03/18/24 PTT 29 Seconds (21-31) 03/18/24 INR 0.9 (0.9-1.1) 03/18/24 HA1c 6.1 % (4.5-5.6) H 03/18/24 Blood Type O Negative 03/18/24 Antibody Screen NEGATIVE 03/18/24 Testing Electrocardiogram Date: 08/21/23 SR with PACs at 77bpm. "Otherwise normal ECG" Chest X-Ray Date: 03/18/24 FINDINGS: Cholecystectomy. Atherosclerosis of the aorta. Heart size is normal. No pneumothorax, pleural effusion or airspace consolidation. The bones of the chest appear grossly intact. IMPRESSION: No acute process. Echocardiogram Date: 08/04/20 EF 55-59% Grade I diastolic dysfunction Normal LV wall motion No significant valvular disease
[~2024-04-13 07:36] MED LIST changes: -ACETAMINOPHEN 500 MG TAB PO SCH; -BUPIVACAINE 0.5 % 5 MG/1 ML PF 10ML VIAL ONE; -FAMOTIDINE 20 MG TAB PO SCH; -GABAPENTIN 300 MG CAP PO SCH; -LR 500ML BOLUS, THEN 15ML/HR IV SCH; -LR 60ML/HR IV SCH; -ORTHO JOINT MIX INFIL SCH; -TRANEXAMIC ACID 1,000 MG **IV Intra-op IV SCH; -TRANEXAMIC ACID 1,000 MG **IV Pre-op IV SCH; -ceFAZolin 2000MG 2,000 MG/15 ML SYR IV SCH; -dexAMETHasone 4 MG TAB PO SCH
--- OUTSIDE RECORDS SUMMARY | 2024-04-13 07:41 | External Medical Summary | Summary of Care ---
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 Name Role Phone Radha Burgess PA-C Primary Care Provider [phone] Reason for Visit * Reason Comments Allergy Return Encounter Details Date Type Department Care Team (Late st Contact Info) Description 04/03/2024 9:30 AM EDT Office Visit Allergy/Immunology [facility] [place] [address] [facility] [place] [address] Arely Preston PA-C [address] [facility] [place] [address] Chronic urticaria*; Mild persistent asthma without complication; Nonallergic rhinitis; Postnasal drip Allergies Active Allergy Reactions Criticality Noted Date Comments Indomethacin Other (Please comment) 06/16/2009 headache Midazolam High 01/26/2022 Other reaction(s): Nausea Sulfa Antibiotics 01/09/2001 As a child; mouth sores documented as of this encounter (statuses as of 04/03/2024) Medications Medication Sig Dispensed Refills Start Date End Date Status MAGNESIUM OXIDE 400 MG OR CAPSIndications:Pal pitations Take 1 tablet daily 34 5 12/28/2004 Active CALCIUM 500 MG PO CAPS take one cap by mouth daily 34 11 07/05/2006 Active ICAPS LUTEIN-ZEAXANTHIN PO TBCR restore- 1 pill daily Active Esomeprazole Magnesium (NEXIUM) 20 MG CPDR Take 1 Cap by mouth daily before breakfast. 05/14/2018 Active Ketoconazole 2 % creamIndications:In tertriginous candidiasis APPLY TOPICALLY TO THE AFFECTED AREA TWICE DAILY FOR 6 WEEKS. 30 g 09/24/2018 Active Additional Information Patient taking differently: PRN, Reported on 01/28/2024 Albuterol Sulfate (2.5 MG/3ML) 0.083% Inhalation Nebulization Solution (Proventil) Inhale 1 Vial via nebulizer every 4 hours as needed for Wheezing or Shortness of Breath (And with respiratory infections). 60 mL 1 10/24/2020 Active hydrOXYzine HCl 10 MG Oral Tablet (Atarax) Take 1 Tab by mouth every 6 hours as needed for Itching (and hives). 60 Tab 6 03/14/2021 Active Fluticasone Propionate 50 MCG/ACT Nasal Suspension (Flonase) Administer 2 Sprays in the morning into nostril. 48 g 3 08/09/2021 Active predniSONE 10 MG Oral Tablet (Deltasone) 1-2 tabs a day as needed for hives 60 Tablet 1 09/27/2021 Active Ferrous Sulfate 325 (65 Fe) MG Oral Tablet Delayed Release Take 1 Tablet by mouth in the morning. 90 Tablet 02/16/2022 Active Amoxicillin 500 MG Oral Capsule (Amoxil) TAKE 4 CAPSULES ONE HOUR PRIOR TO DENTAL PROCEDURE 05/22/2022 Active Albuterol Sulfate HFA 108 (90 Base) MCG/ACT Inhalation Aerosol SolutionIndications :Mild persistent asthma without complication Inhale 2 Puffs by mouth every 4 hours as needed for Cough, Shortness of Breath or Wheezing. 72 g 3 07/19/2022 Active metroNIDAZOLE 0.75 % External Cream (MetroCream) Apply topically to affected area 2 times a day. Apply to face 45 g 5 09/12/2022 Active Aspirin 81 MG Oral Capsule Take by mouth. Three times per week Active Solifenacin Succinate 5 MG Oral Tablet (VESIcare) TAKE 1 TABLET BY MOUTH ONCE DAILY IN THE MORNING 90 Tablet 3 05/31/2023 Active Myrbetriq 50 MG Oral Tablet Extended Release 24 Hour (Mirabegron ER) TAKE 1 TABLET BEFORE BEDTIME 90 Tablet 3 05/31/2023 Active Ipratropium [place] 0.03 % Nasal Solution (Atrovent) Administer 2 Sprays into nostril in the morning and 2 Sprays at noon and 2 Sprays before bedtime. 90 mL 3 07/02/2023 Active Fluticasone Furoate 100 MCG/ACT Inhalation Aerosol Powder Breath Activated (ARNUITY ellipta) Inhale 1 Puff by mouth in the morning. 90 Each 3 07/02/2023 Active Furosemide 20 MG Oral Tablet (Lasix)Indications: HTN, goal below 140/90 TAKE 1 TABLET 3-4 TIMES PERWEEK 45 Tablet 3 08/21/2023 Active Atorvastatin Calcium 10 MG Oral Tablet (Lipitor)Indication s:takes at bed Take 1 Tablet by mouth in the morning. 90 Tablet 3 08/21/2023 Active Spironolactone 25 MG Oral Tablet (Aldactone)Indicati ons:HTN, goal below 140/90 Take 0.5 Tablets by mouth in the morning. 45 Tablet 3 08/21/2023 Active Metoprolol Succinate ER 25 MG Oral Tablet Extended Release 24 Hour (toPROL XL)Indications:HTN, goal below 140/90 TAKE 1 TABLET EVERY MORNINGAND TAKE 1 TABLET BEFORE BEDTIME 180 Tablet 3 12/10/2023 Active Montelukast Sodium 10 MG Oral Tablet (Singulair) Take 1 Tablet by mouth in the morning. 90 Tablet 4 01/02/2024 Active Alendronate Sodium 70 MG Oral Tablet (Fosamax)Indication s:Age-related osteoporosis without current pathological fracture Take 1 Tablet by mouth once a week. 12 Tablet 4 01/20/2024 Active Gabapentin 400 MG Oral Capsule (Neurontin) Take 1 Capsule by mouth in the morning and 1 Capsule before bedtime. 180 Capsule 3 01/20/2024 Active Ozempic (0.25 or 0.5 MG/DOSE) 2 MG/3ML Solution Pen-injector (Semaglutide(0.25 or 0.5MG/DOS))Indicati ons:Type 2 diabetes mellitus with target hemoglobin A1c of less than 8.0 percent (HCC) Inject 0.25mg under the skin once weekly for 4 weeks then increase to 0.5mg under the skin once weekly thereafter 3 mL 01/28/2024 Active Ozempic (0.25 or 0.5 MG/DOSE) 2 MG/3ML Solution Pen-injector (Semaglutide(0.25 or 0.5MG/DOS)) Inject 0.5 mg under the skin once a week. 15 mL 01/28/2024 Active Nitrofurantoin Monohyd Macro 100 MG Oral Capsule (Macrobid) Take 1 Capsule by mouth in the morning and 1 Capsule before bedtime. With food.. 20 Capsule 2 03/02/2024 Active rOPINIRole HCl 2 MG Oral Tablet (Requip)Indications :Restless legs syndrome TAKE 1 TABLET 3 TIMES A DAYWITH FOOD 270 Tablet 3 03/30/2024 Active Azelastine HCl 0.1 % Nasal Solution (Astelin) Administer 2 Sprays into nostril in the morning and 2 Sprays before bedtime. 90 mL 4 04/03/2024 Active documented as of this encounter (statuses as of 04/03/2024) Active Problems Problem Noted Date Diagnosed Date Body mass index (BMI) of 40.0 to 44.9 in adult 0 08/26/2023 Overview: Per Obesity protocol Urge incontinence 04/11/2022 History of UTI 04/11/2022 Restless legs syndrome 12/28/2020 Chronic kidney disease, stage 3a 07/25/2020 Overview: Per CKD protocol Atrial ectopy 09/22/2017 Prediabetes 08/27/2017 Overview: Per Prediabetes protocol #1 Asthma, mild persistent 06/17/2014 HTN, goal below 140/90 05/03/2014 Actinic keratosis 10/06/2012 Other seborrheic keratosis 10/06/2012 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 Generalized osteoarthritis Hereditary and idiopathic peripheral neuropathy documented as of this encounter (statuses as of 04/03/2024) Resolved Problems Problem Noted Date Diagnosed Date Resolved Date Encounter for examination fo r normal comparison and control in clinical research program 07/17/2018 02/15/2020 Overview: DO NOT DELETE [facility] DETECT Study: Project # [id number], Spanish Speaking Nanny: Deejay Bowens, PhD. SUMMARY: Goal: Establish test characteristics (sensitivity, specificity, PPV, NPV) of a circulating tumor DNA (ctDNA)-based test for cancer. Hypothesis: Circulating tumor DNA (ctDNA) and elevated protein biomarkers (together, the marker panel) can be detected in asymptomatic individuals with early cancer. Specific Aim 1: Determine the prevalence of a positive marker panel test in a prospective clinical cohort of 10,000 asymptomatic women ages 65 to 75 years. Specific Aim 2: Determine the sensitivity, specificity, positive predictive value (PPV) and negative predictive value (NPV) of a marker panel test to identify histologically proven cancers that develop within 5-years of the marker panel evaluation. CONTACTS: During normal business hours, contact study staff at ; after hours Spanish Speaking Nanny via the [facility] radiagraph operator . Please contact study team before resolving/deleting from patients problem list. Study phone number: [phone]. Diagnosis changed due to Research Module. Go to Snapshot for study details. Encounter for examination fo r normal comparison and control in clinical research program 07/17/2018 03/15/2022 Overview: DO NOT DELETE - [facility] DETECT Study: Project # [id number], Spanish Speaking Nanny: Sage Wilson, MS, MPH. SUMMARY: Goal: Establish test characteristics (sensitivity, specificity, PPV, NPV) of a circulating tumor DNA (ctDNA)-based test for cancer. - Hypothesis: Circulating tumor DNA (ctDNA) and elevated protein biomarkers (together, the marker panel) can be detected in asymptomatic individuals with early cancer. - Specific Aim 1: Determine the prevalence of a positive marker panel test in a prospective clinical cohort of 10,000 asymptomatic women ages 65 to 75 years. - Specific Aim 2: Determine the sensitivity, specificity, positive predictive value (PPV) and negative predictive value (NPV) of a marker panel test to identify histologically proven cancers that develop within 5-years of the marker panel evaluation. - CONTACTS: During normal business hours, contact study staff at ; after hours Spanish Speaking Nanny via the [facility] hospital radiagraph operator . - Please contact study team before resolving/deleting from patients problem list. Study phone number: [phone]. Diagnosis changed due to Research Module. Go to Snapshot for study details. Wheezing 07/18/2011 06/17/2014 Other specified urticaria 10/09/2010 Overview: began 06/2010 Obesity, morbid (more than 1 00 lbs over ideal weight or BMI > 40) 10/11/2009 07/19/2022 Overview: Per Obesity Taxonomy ICD-10 update of inactive term ROTATOR CUFF SYND NOS 10/09/20042018 Palpitations 04/02/2002 09/07/2019 Elevated blood pressure, situational 04/02/2002 08/08/2018 Varicella without complication 08/08/2018 Obesity, BMI not known 10/11 Overview: Per Obesity Taxonomy Urticaria 08/10/2011 documented as of this encounter (statuses as of 04/03/2024) Immunizations Name Administration Dates Next Due COVID-19 mRNA, LNP-s, No Pre serve, 2-Dose Series (Alere) 03/15/2021,10/01/2020,09/10/2020 Hepatitis B, 20+ yrs 04/08/2002 PPD 12/04/2001 Pneumococcal Conjugate Vacc, 13 Valent (Prevnar) 10/29/2016 Pneumococcal Polysaccharide PPV23 (Pneumovax) 09/25/2021,07/20/2015 Season Influenza, Quad, PF, Adjuvanted, 65+ Yrs, IM (FLUAD) 04/26/2020 Seasonal Influenza, High Dos e, Trivalent, PF, IM (Fluzone HD) 03/28/2024 Seasonal Influenza, PF, 6 M & above, IM , (FluLaval or Fluzone) 05/07/2019,05/14/2018,04/28/2018,04/16 Seasonal Influenza, Quadriva lent Hd (Fluzone Hd) 03/30/2023,03/26/2022,04/11/2021 Seasonal Influenza, Quadriva lent, No Preserve, IM 05/01/2016 Seasonal Influenza, Trivalen t, (IIV3), with Preserv, (Fluzone) 03/30/2015,04/21/2014,05/11/2013,07/2011,05/12/2010,05/13/2009,05/20/20 08,04/23/2007,05/23/2006,05/23/2005,1 ,05/12/2002 04/21/2015 TD - Tetanus/Diptheria (ADULT) 08/11/2003 TDAP (age 10 and older)(Boostrix) 01/16/2023, Varicella Zoster Vaccine (Adult) 03/30/2015 Zoster Vaccine Recombinant (Shingrix) 01/06/2020 ,09/14/2019 documented as of this encounter Social History Tobacco Use Types Packs/Day Years Used Date Smoking Tobacco: Never Smokeless Tobacco: Never Tobacco Cessation:Counseling Given: Not Answered Comments:no passive smoke exposures Alcohol Use Standard Drinks/Week Comments Yes 0 (1 standard drink = 0.6 oz pur e alcohol) rare AUDIT-C Answer Date Recorded Frequency of Alcohol Consumption Never 08/08/2018 Average Number of Drinks Not on file 019 Frequency of Binge Drinking Not on file 07/16 PHQ-2 Answer Date Recorded PHQ-2 Score 0 09/07/2019 Hunger Vital Sign Answer Date Recorded Within the past 12 months, y ou worried that your food would run out before you got the money to buy more. Never true 01/06/20 24 Within the past 12 months, t he food you bought just didn't last and you didn't have money to get more. Never true 01/06/2024 Childcare Answer Date Recorded Do you feel overwhelmed with taking care of a child, family member or friend? No 01/06/2024 Does your family need help f inding childcare? (Household - for ages 0-17 years) Not on file 01/06/2024 Clothing Answer Date Recorded Have you been unable to get clothing when it was really needed? No 01/06/2024 Is your family able to get c lothes or diapers when needed? (Household - for ages 0-17 years) Not on file 01/06/2024 Personal Safety Answer Date Recorded Do you feel unsafe or have concerns for your saf ety? No 01/06/2024 Do you have concerns for you r family's safety? (Household - for ages 0-17 years) Not on file 01/06/2024 Utilities Answer Date Recorded Do you have trouble paying y our heating, water, or electric bill? No 01/06/2024 Is your family able to pay t he heat, water, or electric bill? (Household - for ages 0-17 years) Not on file 01/06/2024 Does your family have access to good internet? (Household - for ages 0-17 years) Not on file 01/06/2024 Employment Status Answer Date Recorded Are you unemployed or without regular income? No 01/06/2024 Does the household have a re gular source of income? (Household - for ages 0-17 years) Not on file 01/06/2024 Social Connections Answer Date Recorded How often do you feel lonely or isolated from th ose around you? Never 01/06/2024 Financial Resource Strain Answer Date R ecorded Do you have any trouble payi ng for your medications, or do you think you might in the future? No 01/06/2024 Does your family have troubl e paying for medicine? (Household - for ages 0-17 years) Not on file 01/06/2024 Transportation Needs Answer Date Record ed Do you have trouble getting a ride to medical visits or work? (Adult - for ages 18 years and over) Not on file 01/06/2024 Does your family have a hard time getting a ride to doctors visits? (Household - for ages 0-17 years) Not on file 01/06/2024 Has lack of transportation k ept you from medical appointments, meetings, work, or from getting things needed for daily living? Check all that apply. No 01/06/2024 Do you (or your family) have trouble finding or paying for a ride (transportation)? (Household - for ages 0-17 years) Not on file 01/06/2024 Housing Stability Answer Date Recorded Do you currently live in a s helter or have no steady place to sleep at night? No 01/06/2024 Do you think you are at risk of becoming homeless? (Adult - for ages 18 years and over) Not on file 01/06/2024 Does your family worry about paying for your home or becoming homeless? (Household - for ages 0-17 years) Not on file 0 01/06/2024 Are you homeless or worried that you might be in the future? No 01/06/2024 Are you (or your family) kristian eless or worried that you might be in the future? (Household - for ages 0-17 years) Not on file Food Insecurity Answer Date Recorded Do you need food for this week? No 01/06/2024 Are you able to get enough f ood for your family? (Household - for ages 0-17 years) Not on file 01/06/2024 Does your family need food t his week? (Household - for ages 0-17 years) Not on file 01/06/2024 Do you always have enough fo od for your family? (Household - for ages 0-17 years) Not on file 01/06/2024 Sex and Gender Information Value Date Recorded Sex Assigned at Female 09/07/2019 10:15 AM EST Gender Identity Female 09/07/2019 10:15 AM EST Sexual Orientation Straight 09/07/2019 10 :15 AM EST Job Start Date Occupation Industry Not on file Not on file Not on file documented as of this encounter Last Filed Vital Signs Vital Sign Reading Time Taken Comments Blood Pressure 120/76 04/03/2024 9:23 AM EDT Pulse 70 04/03/2024 9:23 AM EDT Temperature 36.3 C (97.4 F) 04/03/2024 9:23 AM ED T Respiratory Rate 16 04/03/2024 9:23 AM EDT Oxygen Saturation - - Inhaled Oxygen Concentration - - Weight 106.7 kg (235 lb 4.8 oz) 04/03/2024 9:23 AM EDT Height - - Body Mass Index 43.04 01/28/2024 11:54 AM EDT documented in this encounter Progress Notes * Arely Preston PA-C - 04/03/2024 9:19 AM EDT SUBJECTIVE: dEel is a pleasant 73 year old female presenting to the office today in follow up of her chronic urticaria, nonallergic rhinitis and mild persistent asthma. She endorses chronic nasal congestion which comes and goes throughout the day. Occasional rhinorrhea. Notes that she hasn't really been able to pinpoint triggers, but has noticed temperature changes will sometimes cause symptoms. She does use Flonase 2 sprays in each nostril twice daily, and ipratropium nasal spray 2 sprays each nostril twice daily. She was aware that she could increase this to 3times daily and she will do this occasionally on her worst days. In regards to any triggers, she can not identify any certain ones. She notes occasional postnasal drainage and hoarseness. No excessive sneezing. She started Singulair and hasn't noticed much improvement. As you may recall her last bout of urticaria started in February of 2021 and resolved in November of 2021.She is not had any hives, itch, rash, nor swelling since that time. She has not been on Xolair injections in quite some time now. She was able to wean off her Xyzal, Singulair, and Pepcid without anyadverse reactions. Her last use of any of these medications was in the fall. This episode that occurred from February of 2021 to November of 2021 was her 2nd bout of urticaria. Finally in regards to her asthma, she does continue Arnuity 1 puff daily. Overall her asthma has been well-controlled. She does have albuterol to be used on an as needed basis for any cough, wheezing, or shortness of breath. She rarely takes albuterol. There have been no ER visits nor urgent care visits secondary to pulmonary symptoms. She reports no nocturnal pulmonary symptoms. Asthma control test obtained on December 19, 2023 revealed a score of 25 which suggests well controlled asthma. Asthma control test obtained on November 13, 2022 revealed a score of 25 which suggest well-controlled asthma Asthma control test obtained on March 12, 2022 revealed a score of 23 which suggest well controlled asthma. Asthma control test obtained on November 15, 2021 revealed a score of 22 which suggest well controlled asthma. Asthma control test obtained on September 12, 2021 revealed a score of 22 which suggest well controlled asthma. Asthma control test obtained on April 11, 2021 revealed a score of 19 which suggest moderately controlled asthma. Asthma control test obtained on March 14, 2021 revealed a score of 20 which suggest well controlled asthma. Asthma control test obtained on October 24, 2020 revealed a score of 15 which suggest moderately controlled asthma. Asthma control test obtained on September 13, 2020 revealed a score of 23 tree which suggest well controlled asthma. Asthma Control Test Summary, Results are Patient Reported The overall score is: 23 suggesting: Well Controlled asthma for the survey taken on: 12/15/2019 10:29:03 AM. Asthma Control Test Summary, Results are Patient Reported The overall score is: 20 suggesting: Well Controlled asthma for the survey taken on: 06/03/2019 10:57:41 AM. Asthma Control Test Summary, Results are Patient Reported The overall score is: 20 suggesting: Well Controlled asthma for the survey taken on: 11/11/2018 10:25:00 AM. Xolair therapy: Started: 04/17/21-12/19/2021 Benefit? YES Reactions? NO Patient Active Problem List Diagnosis ADVANCE DIRECTIVE INFORMATION Generalized osteoarthritis Gastritis and gastroduodenitis Dyslipidemia, goal LDL below 100 Hereditary and idiopathic peripheral neuropathy Idiopathic urticaria Angioedema GERD (gastroesophageal reflux disease) Actinic keratosis Other seborrheic keratosis Ferreira angioma HTN, goal below 140/90 Asthma, mild persistent Prediabetes Atrial ectopy Chronic kidney disease, stage 3a Restless legs syndrome Urge incontinence History of UTI Body mass index (BMI) of 40.0 to 44.9 in adult (HCC) Current Outpatient Medications Medication Sig Dispense Refill MAGNESIUM OXIDE 400 MG OR CAPS Take 1 tablet daily 34 5 CALCIUM 500 MG PO CAPS take one cap by mouth daily 34 11 Esomeprazole Magnesium (NEXIUM) 20 MG CPDR Take 1 Cap by mouth daily before breakfast. Ketoconazole 2 % cream APPLY TOPICALLY TO THE AFFECTED AREA TWICE DAILY FOR 6 WEEKS. (Patient taking differently: as needed.) 30 g 0 Albuterol Sulfate (2.5 MG/3ML) 0.083% Inhalation Nebulization Solution (Proventil) Inhale 1 Vial via nebulizer every 4 hours as needed for Wheezing or Shortness of Breath (And with respiratory infections). 60 mL 1 hydrOXYzine HCl 10 MG Oral Tablet (Atarax) Take 1 Tab by mouth every 6 hours as needed for Itching (and hives). 60 Tab 6 Fluticasone Propionate 50 MCG/ACT Nasal Suspension (Flonase) Administer 2 Sprays in the morning into nostril. 48 g 3 predniSONE 10 MG Oral Tablet (Deltasone) 1-2 tabs a day as needed for hives 60 Tablet 1 Ferrous Sulfate 325 (65 Fe) MG Oral Tablet Delayed Release Take 1 Tablet by mouth in the morning. 90 Tablet 0 Albuterol Sulfate HFA 108 (90 Base) MCG/ACT Inhalation Aerosol Solution Inhale 2 Puffs by mouth every 4 hours as needed for Cough, Shortness of Breath or Wheezing. 72 g 3 metroNIDAZOLE 0.75 % External Cream (MetroCream) Apply topically to affected area 2 times a day. Apply to face 45 g 5 Aspirin 81 MG Oral Capsule Take by mouth. Three times per week Solifenacin Succinate 5 MG Oral Tablet (VESIcare) TAKE 1 TABLET BY MOUTH ONCE DAILY IN THE MORNING 90 Tablet 3 Myrbetriq 50 MG Oral Tablet Extended Release 24 Hour (Mirabegron ER) TAKE 1 TABLET BEFORE BEDTIME 90 Tablet 3 Ipratropium [place] 0.03 % Nasal Solution (Atrovent) Administer 2 Sprays into nostril in the morning and 2 Sprays at noon and 2 Sprays before bedtime. 90 mL 3 Fluticasone Furoate 100 MCG/ACT Inhalation Aerosol Powder Breath Activated (ARNUITY ellipta) Inhale1 Puff by mouth in the morning. 90 Each 3 Furosemide 20 MG Oral Tablet (Lasix) TAKE 1 TABLET 3-4 TIMES PERWEEK 45 Tablet 3 Atorvastatin Calcium 10 MG Oral Tablet (Lipitor) Take 1 Tablet by mouth in the morning. 90 Tablet 3 Spironolactone 25 MG Oral Tablet (Aldactone) Take 0.5 Tablets by mouth in the morning. 45 Tablet 3 Metoprolol Succinate ER 25 MG Oral Tablet Extended Release 24 Hour (toPROL XL) TAKE 1 TABLET EVERY MORNINGAND TAKE 1 TABLET BEFORE BEDTIME 180 Tablet 3 Montelukast Sodium 10 MG Oral Tablet (Singulair) Take 1 Tablet by mouth in the morning. 90 Tablet 4 Alendronate Sodium 70 MG Oral Tablet (Fosamax) Take 1 Tablet by mouth once a week. 12 Tablet 4 Gabapentin 400 MG Oral Capsule (Neurontin) Take 1 Capsule by mouth in the morning and 1 Capsule before bedtime. 180 Capsule 3 Ozempic (0.25 or 0.5 MG/DOSE) 2 MG/3ML Solution Pen-injector (Semaglutide(0.25 or 0.5MG/DOS)) Inject 0.25mg under the skin once weekly for 4 weeks then increase to 0.5mg under the skin once weekly thereafter 3 mL 0 Nitrofurantoin Monohyd Macro 100 MG Oral Capsule (Macrobid) Take 1 Capsule by mouth in the morning and 1 Capsule before bedtime. With food.. 20 Capsule 2 rOPINIRole HCl 2 MG Oral Tablet (Requip) TAKE 1 TABLET 3 TIMES A DAYWITH FOOD 270 Tablet 3 Azelastine HCl 0.1 % Nasal Solution (Astelin) Administer 2 Sprays into nostril in the morning and 2Sprays before bedtime. 90 mL 4 ICAPS LUTEIN-ZEAXANTHIN PO TBCR restore- 1 pill daily (Patient not taking: Reported on 04/03/2024) Amoxicillin 500 MG Oral Capsule (Amoxil) TAKE 4 CAPSULES ONE HOUR PRIOR TO DENTAL PROCEDURE Ozempic (0.25 or 0.5 MG/DOSE) 2 MG/3ML Solution Pen-injector (Semaglutide(0.25 or 0.5MG/DOS)) Inject 0.5 mg under the skin once a week. 15 mL 0 No current facility-administered medications for this visit. History Social History Main Topics Smoking status: Never Smoker Smokeless tobacco: Never Used Comment: no passive smoke exposures Alcohol Use: Yes rare Social History Narrative [facility] [place] INFORMATIONENVIRONMENTAL HISTORY:Type of Home: Two StoryType of Heating System: Oil and Hot water: Air Conditioning: NoBasement: Unfinished, Dampness and Water ProblemsHome have cockroaches: NoIrritants in the home: Scented CandlesPatient's bedroom location: Floor: second Type of kumar: CarpetingBeds: Number: 1 Type of beds: Mattress and Box springPillows: Number: 1 Type of pillows: Synthetic (hypoallergenic, polyester)Bedroom contains: Stuffed animalsPets: noneLives on a farm: NoRetired; occasionally dog sits.Entered by: Kameron Anderson MD10/09/2010 PHYSICAL EXAM: GENERAL: No acute distress. No cough EYES: Conjunctiva- normal; Eyelids - normal EARS: TM's - clear NOSE: Red mucosa, mild turbinate edema; no nasal polyps or mucopus; Septum - normal OROPHARYNX: No lesions, exudates NECK: Supple; No thyroid enlargment or cervical adenopathy RESPIRATORY: Diffuse wheezing throughout; Decreased breath sounds bilaterally; CARDIOVASCULAR: RRR; No gallops, rubs, clicks, or murmurs. LYMPHATIC: No significant adenopathy noted SKIN: No significant urticaria no angioedema Normal skin quality OBJECTIVE DATA: XR CHEST 2 VIEWS - 06/03/2019 11:46 am FINDINGS The lungs are clear. There is no focal pulmonary infiltrate, pleural effusion, or pneumothorax visualized. The heart and mediastinum are within normal limits in size. There is no free air visualized below the diaphragm. There are mild degenerative changes in the spine. IMPRESSION IMPRESSION There is no evidence of acute cardiopulmonary disease. Spirometry performed on May 14, 2018 revealed normal spirometry. FEV1/FVC was 84%. FEV1 was 2.14, 92% of predicted. FVC was 2.55, 84% of predicted. Pulmonary function studies performed on January 23, 2016 revealed normal spirometry. FEV1/FVC was 84%.FEV1 was 2.29, 96% of predicted. FVC was 2.73, 87% of predicted. Component Latest Ref Rn 01/28/2015 WBC 4.00 - 10.80 K/uL 5.80 RBC 3.85 - 5.15 M/uL 4.39 HGB 12.0 - 15.3 g/dL 13.2 HCT 36.0 - 45.2 % 41.1 MCV 81.5 - 97.5 fL 93.6 MCH 27.0 - 34.0 pg 30.1 MCHC 32.0 - 36.0 g/dL 32.1 RDW 11.5 - 15.5 % 13.0 PLATELET COUNT 140 - 400 K/uL 226 MPV 6.6 - 11.1 fL 9.9 SEGS 40 - 75 % 58 LYMPHS 18 - 42 % 30 MONOS 1 - 11 % 10 EOS 0 - 6 % 2 BASOS 0 - 2 % 0 ABS. SEGS 1.8 - 7.7 K/uL 3.39 ABS. LYMPHS 1.0 - 4.8 K/uL 1.72 ABS. MONOS 0.0 - 1.1 K/uL 0.59 ABS. EOS 0.0 - 0.7 K/uL 0.09 ABS. BASOS 0.0 - 0.2 K/uL 0.01 Component Latest Ref Rng 05/19/2014 WBC 4.00 - 10.80 K/uL 5.29 RBC 3.85 - 5.15 M/uL 4.33 HGB 12.0 - 15.3 g/dL 13.1 HCT 36.0 - 45.2 % 40.0 MCV 81.5 - 97.5 fL 92.4 MCH 27.0 - 34.0 pg 30.3 MCHC 32.0 - 36.0 g/dL 32.8 RDW 11.5 - 15.5 % 12.6 PLATELET COUNT 140 - 400 K/uL 216 MPV 6.6 - 11.1 fL 9.4 SEGS 40 - 75 % 55 LYMPHS 18 - 42 % 32 MONOS 1 - 11 % 11 EOS 0 - 6 % 2 BASOS 0 - 2 % 0 ABS. SEGS 1.8 - 7.7 K/uL 2.93 ABS. LYMPHS 1.0 - 4.8 K/uL 1.69 ABS. MONOS 0.0 - 1.1 K/uL 0.57 ABS. EOS 0.0 - 0.7 K/uL 0.08 ABS. BASOS 0.0 - 0.2 K/uL 0.02 Pulmonary function test performed on May 19, 2014 revealed normal spirometry. FEV1/FVC was 81%.FEV1 was 2.20, 90% of predicted. FVC was 2.71, 85% of predicted. Peak flow was 399.60, 110% of predicted. Component Latest Ref Rng 03/15/2012 03/15/2012 9:44 AM 9:44 AM BUN 6 - 20 mg/dL 23 (H) CREATININE 0.5 - 1.1 mg/dL 1.0 GFR ESTIMATED >60 mL/min 56.6 (L) SODIUM 135 - 146 mmol/L 142 POTASSIUM 3.5 - 5.1 mmol/L 4.5 CHLORIDE 98 - 111 mmol/L 105 CO2 22 - 32 mmol/L 29 ANION GAP 7 - 15 mmol/L 8 GLUCOSE 70 - 120 mg/dL 99 ALBUMIN 3.8 - 5.0 g/dL 3.9 AST 10 - 35 U/L 14 ALKALINE PHOSPHATASE 0 - 153 U/L 123 BILIRUBIN 0.3 - 1.3 mg/dL 0.6 CALCIUM 8.3 - 10.5 mg/dL 9.6 PROTEIN 6.0 - 8.3 g/dL 5.8 (L) ALT 10 - 35 U/L 12 HOURS FASTING hours 12 TRIGLYCERIDES <200 mg/dL 166 CHOLESTEROL <200 mg/dL 223 (H) HDL-CHOLESTEROL >39 mg/dL 49 CHOL/HDL RATIO 4.6 LDL (CALCULATED) 0 - 129 mg/dL 141 (H) Component Latest Ref Rng 01/22/2012 02/21/2012 10:12 AM 8:45 AM HOURS FASTING hours 12 12 TRIGLYCERIDES <200 mg/dL 118 185 CHOLESTEROL <200 mg/dL 217 (H) 229 (H) HDL-CHOLESTEROL >39 mg/dL 55 45 CHOL/HDL RATIO 3.9 5.1 LDL (CALCULATED) 0 - 129 mg/dL 138 (H) 147 (H) Component Latest Ref Rng 01/22/2012 02/14/2012 10:12 AM 10:36 AM BUN 6 - 20 mg/dL 31 (H) 25 (H) CREATININE 0.5 - 1.1 mg/dL 0.9 1.0 GFR ESTIMATED >60 mL/min >60.0 56.6 (L) SODIUM 135 - 146 mmol/L 142 139 POTASSIUM 3.5 - 5.1 mmol/L 4.2 4.7 CHLORIDE 98 - 111 mmol/L 104 102 CO2 22 - 32 mmol/L 30 27 ANION GAP 7 - 15 mmol/L 8 10 GLUCOSE 70 - 120 mg/dL 100 98 ALBUMIN 3.8 - 5.0 g/dL 3.9 AST 10 - 35 U/L 13 ALKALINE PHOSPHATASE 0 - 153 U/L 116 BILIRUBIN 0.3 - 1.3 mg/dL 0.6 CALCIUM 8.3 - 10.5 mg/dL 9.5 9.5 PROTEIN 6.0 - 8.3 g/dL 6.7 ALT 10 - 35 U/L 11 Component Latest Ref Rn 12/14/2011 12/14/2011 8:43 AM 8:43 AM BUN 6 - 20 mg/dL 18 CREATININE 0.5 - 1.1 mg/dL 0.9 GFR ESTIMATED Low: >60 mL/min >60.0 SODIUM 135 - 146 mmol/L 142 POTASSIUM 3.5 - 5.1 mmol/L 4.4 CHLORIDE 98 - 111 mmol/L 103 CO2 22 - 32 mmol/L 30 ANION GAP 7 - 15 mmol/L 9 GLUCOSE 70 - 120 mg/dL 103 ALBUMIN 3.8 - 5.0 g/dL 3.9 AST 10 - 35 U/L 18 ALKALINE PHOSPHATASE 0 - 153 U/L 119 BILIRUBIN 0.3 - 1.3 mg/dL 0.3 CALCIUM 8.3 - 10.5 mg/dL 9.1 PROTEIN 6.0 - 8.3 g/dL 6.4 ALT 10 - 35 U/L 16 HOURS FASTING hours 12 TRIGLYCERIDES Low: <200 mg/dL 160 CHOLESTEROL Low: <200 mg/dL 169 HDL-CHOLESTEROL 40 - 59 mg/dL 54 CHOL/HDL RATIO 3.1 LDL (CALCULATED) 0 - 129 mg/dL 83 Biopsy performed on 12/05/11 - compatible with urticaria or an urticarial reaction. EXAM: CHEST 2 VIEWS AP OR PA AND LATERAL - 07/19/11 09:49:00 FINDINGS: There is normal cardiovascular silhouette and lung prajapati. The mediastinal and hilar structures as well as osseous and soft tissue structures are normal except for mild degenerative changesin the midthoracic spine. IMPRESSION: No acute cardiopulmonary process is detected radiographically at this time. Component Latest Ref Rng 07/17/2011 07/17/2011 07/17/2011 10:06 AM 10:06 AM 10:06 AM BUN 6 - 20 mg/dL 15 CREATININE 0.5 - 1.1 mg/dL 0.8 SODIUM 135 - 146 mmol/L 139 POTASSIUM 3.5 - 5.1 mmol/L 4.2 CHLORIDE 98 - 111 mmol/L 102 CO2 22 - 32 mmol/L 31 GLUCOSE 70 - 120 mg/dL 100 ALBUMIN 3.8 - 5.0 g/dL 3.9 AST 10 - 35 U/L 18 ALKALINE PHOSPHATASE 0 - 153 U/L 126 BILIRUBIN 0.3 - 1.3 mg/dL 0.3 CALCIUM 8.3 - 10.5 mg/dL 9.2 PROTEIN 6.0 - 8.3 g/dL 6.5 ALT 10 - 35 U/L 21 ANION GAP 7 - 15 mmol/L 6 (L) GFR ESTIMATED Low: >60 mL/min >60.0 TSH 0.27 - 4.2 uIU/mL 2.00 WBC 4.00 - 10.80 K/uL 5.90 RBC 3.85 - 5.15 M/uL 4.34 HGB 12.0 - 14.5 g/dL 12.0 HCT 36.0 - 44.5 % 38.0 MCV 81.5 - 97.5 fL 87.6 MCH 27.0 - 34.0 pg 27.6 MCHC 32.0 - 36.0 g/dL 31.6 (L) RDW 11.5 - 15.5 % 13.7 PLATELET COUNT 140 - 400 K/uL 219 MPV 6.6 - 11.1 fL 9.1 DIFF TYPE AUTO SEGS 40 - 75 % 58 LYMPHS 18 - 42 % 33 MONOS 1 - 11 % 9 ABS. SEGS 1.8 - 7.7 K/uL 3.42 ABS. LYMPHS 1.0 - 4.8 K/uL 1.95 ABS. MONOS 0.0 - 1.1 K/uL 0.53 Pulmonary function tests performed on 02-26-2011 revealed no spirometry. FEV1 was 2.36, 95% of predicted. FVC was 2.90, 90%of predicted. FEV1/FVC was 81% of predicted. Peak flow was 403.80, 109% of predicted. Component Latest Ref Rng 10/09/2010 10/09/2010 10/09/2010 10:37 AM 10:37 AM 10:37 AM BUN 6 - 20 mg/dL 17 CREATININE 0.7 - 1.5 mg/dL 0.8 SODIUM 135 - 146 mmol/L 140 POTASSIUM 3.5 - 5.1 mmol/L 4.0 CHLORIDE 98 - 111 mmol/L 102 CO2 22 - 32 mmol/L 28 GLUCOSE 70 - 120 mg/dL 99 ALBUMIN 3.8 - 5.0 g/dL 4.2 AST 10 - 35 U/L 20 ALKALINE PHOSPHATASE 25 - 125 U/L 142 (H) BILIRUBIN 0.3 - 1.3 mg/dL 0.3 CALCIUM 8.3 - 10.5 mg/dL 9.4 PROTEIN 6.0 - 8.3 g/dL 7.0 ALT 10 - 35 U/L 24 ANION GAP 7 - 15 mmol/L 10 GFR ESTIMATED Low: >60 mL/min >60.0 ANTI THY PER IGG Low: <35 IU/mL <10 THYROGLOB AB IGG Low: <40 IU/mL <20 THYROTROPIN (TSH) 0.4 - 4.0 uIU/mL 1.08 CU INDEX Low: <10.0 (NOTE) . . . 9.2 Allergy skin testing 10-09-10 all negative results noted in the face of adequate positive histamine controls. Component Latest Ref Rng 09/14/2010 SEDIMENTATION RATE 0 - 20 mm/hour 42 (H) WBC 4.00 - 10.80 K/uL 5.81 RBC 3.85 - 5.15 M/uL 4.70 HGB 12.0 - 14.5 g/dL 13.3 HCT 36.0 - 44.5 % 41.4 MCV 81.5 - 97.5 fL 88.1 MCH 27.0 - 34.0 pg 28.3 MCHC 32.0 - 36.0 g/dL 32.1 RDW 11.5 - 15.5 % 13.3 PLATELET COUNT 140 - 400 K/uL 267 MPV 6.6 - 11.1 fL 11.1 SEGS 40 - 75 % 56 LYMPHS 18 - 42 % 33 MONOS 1 - 11 % 11 EOS 0 - 6 % 0 BASOS 0 - 2 % 0 ABS. SEGS 1.8 - 7.7 K/uL 3.24 ABS. LYMPHS 1.0 - 4.8 K/uL 1.89 ABS. MONOS 0.0 - 1.1 K/uL 0.65 ABS. EOS 0.0 - 0.7 K/uL 0.00 ABS. BASOS 0.0 - 0.2 K/uL 0.01 ASSESSMENT: ICD-10-CM 1. Chronic urticaria L50.8 2. Mild persistent asthma without complication J45.30 3. Nonallergic rhinitis J31.0 4. Postnasal drip R09.82 PLAN: Avoidance measures regarding nonallergic triggers are recommended. We did review the various triggers of nonallergic rhinitis and this includes drastic changes in the barometric pressure, drastic changes in temperature, and respiratory irritants such as strong odors, perfumes, colognes, scented products, smoke, exhaust fumes, and chemicals. In regards to the patient's chronic nonallergic rhinitis, she will continue on Flonase 2 sprays each nostril twice daily. She will start azelastine spray 2 sprays each nostril twice daily. She will continue normal saline nasal rinses which was reviewed with her today. Additionally, she will continue Singulair 10 mg once daily. She is not a candidate for allergen immunotherapy since her skin testswere recently negative. In regards to the patient's urticaria, this is likely chronic in idiopathic in nature. This startedin 2009 and was eventually referred to [facility] where she was eventually placed on Plaquenil in addition to cyclosporin. Her urticaria did eventually resolve and then occurred again in February of 2021 and resolved in November of 2021. She has been doing well since then. She does have hydroxyzine and an emergency course of prednisone if her urticaria returns but fortunately she has been asymptomatic from this standpoint. Should there be a persistence of urticaria in the future, consideration towards putting her back on Plaquenil may be beneficial as this was helpful in the past. She felt no significant benefit with Xolair. In regards to her asthma, this appears to be well controlled at the present moment with her use of Arnuity 1 puff once daily, and she was instructed to rinse out her mouth after each use. She does still have albuterol to be used on an as needed basis for any cough, wheezing, shortness of breath, orchest tightness. Should there be increased frequency of albuterol use, she will contact our office for further evaluation and management. All questions answered, we will plan to see her back in 4 months for follow up, sooner as needed. Arely Preston PA-C I spent a total of 20-29 minutes (exact time 29 mins) on the date of service in preparation, delivery, and documentation of the care provided to Edel Herndon excluding any time spent in the performance of separately billed services. (This note was completed using the dictation program Fluency Direct. As such, there may be misspellings, word substitutions, or other variations that should not change the essence of the clinical content of this encounter note.If there is need for further clarification, please direct questions to the provider listed above.) PCP: KIRILL FLORES III, [place] [address] [phone] documented in this encounter Nursing Notes * Daniella Verde LPN - 04/03/2024 9:22 AM EDT The pt has been properly identified by confirmation of name and date of . Pt presents for allergy return. Pt denies any issues. documented in this encounter Plan of Treatment Upcoming Encounters Date Type Department Care Team (Late st Contact Info) Description 06/03/2024 8:20 AM EST Office Visit Nutrition & Weight Management, [address] [place] [phone] Rolanda Carlin PA-C [address] [facility] [place] [address] 06/03/2024 9:15 AM EST Office Visit Urology, [facility] [address] [facility] [place] [address] Emerson Wooten MD [address] [place] [address] 07/23/2024 9:00 AM EST Office Visit [facility] [address] [place] [address] Radha Burgess PA-C [address] [facility] [place] [address] 07/28/2024 9:00 AM EST Imaging Radiology, [address] [place] [address] 08/03/2024 9:30 AM EST Office Visit Allergy/[facility]ology [facility] [address] [place] [address] Arely Preston PA-C [address] [place] [address] 09/21/2024 8:30 AM EDT Office Visit Cardiology, [facility] [address] [facility] [place] [address] Donell Alvarez MD [address] [facility] [place] [address] 11/30/2024 9:45 AM EDT Office Visit Dermatology [facility] [address] [place] [address] Petr Hurtado MD [facility] [place] [address] Scheduled Procedures Name Priority Associated Diagnoses Date/Ti me COLONOSCOPY FLEXIBLE PROXIMAL DIAGNOSTIC Recall History of colon polyps Health Maintenance Due Date Last Done Comments Cologuard 1996 Fecal Occult Blood Test 1996 Sigmoidoscopy 1996 Hepatitis B Vaccine (2 of 3 - 19+ 3-dose series) 05/06/2002 04/08/2002 Adult Wellness Visit 2017 Depression Screening 09/07/2020 09/07/2019, 02/13/2016 (Discussed) COVID-19 Vaccine ( season) 2024 03/15/2021, 10/01/2020, 09/10/2020 HbA1c 07/22/2024 07/22/2023, 01/12, 07/24/2021, Additional history exists GFR 07/23/2024 01/21/2024, 02/2024, 05/31/2023, Additional history exists Albumin/Creatinine Ratio 01/20/2025 024, 01/25/2023, 02/22/2022, Additional history exists CKD HGB USE SMARTSET 60663 01/20/202501/20, 01/25/2023, 02/19/2022, Additional history exists CKD PHOS USE SMARTSET 69637 01/20/2025 0703/2024, 01/25/2023, 12/30/2020 Mammogram 02/11/2025 02/12/2024, 01/12, 01/22/2022, Additional history exists Colonoscopy 06/26/2027 06/26/2022, 06/14, 05/31/2021, Additional history exists Colorectal Cancer Screening 06/26/2027 Lipid Panel 01/20/2029 01/21/2024, 01/12, 02/19/2022, Additional history exists DXA Scan 03/21/2029 03/21/2022, 09/21/2019 DTap/Tdap Vaccines (3 - Td or Tdap) 01/16/2033 01/16/2023, 01/27/2013, 08/11/2003 Zoster Vaccines Completed 01/06/2020, 08/2019, 03/30/2015 Pneumococcal Vaccine: 65+ Years Completed 09/25/2021, 10/29/2016, 07/20/2015 RETIRED - COLONOSCOPY-EVERY 5 YRS AGES 18-100 Discontinued 06/26/2022, 06/26/2022, 05/31/2021, Additional history exists Influenza Vaccine (FLU shot) Completed 03/28/2024, 03/30/2023, 03/26/2022, Additional history exists HPV (Gardasil) Vaccine Aged Out No lo nger eligible based on patient's age to complete this topic MENINGOCOCCAL (MENACTRA/MENVEO) Aged Out No longer eligible based on patient's age to complete this topic documented as of this encounter Medical Devices Implanted Type Area Bench Manager Device Identifier Shelf Expiration Date Model / Serial / Lot Clip Quick 2.8mm 230cm - [id number] Implanted:Qty: 3 on 05/31/2021 by Filemon Luevano MD at ENDOSCOPY [facility] [employer] 10/13/2023 [id number] / / Description:transverse colon poypectomy site Lens Intraoc 26.0 - [id number] - [id number] Implanted:Qty: 1 on 05/31/2022 by Jf Suh MD at OR [facility] Left: Eye [employer] 10/12/2026 [id number] / [id number] / [id number] Lens Intraoc 22.5 - [id number] - [id number] Implanted:Qty: 1 on 06/19/2022 by Jf Suh MD at OR [facility] Right: Eye [employer] 02/11/2031 [id number] / [id number] / [id number] Sureclip 16mm 235cm - [id number] Implanted:Qty: 1 on 06/26/2022 by Filemon Luevano MD at ENDOSCOPY [facility] Colon MICRO TECH ENDOSCOPY 05/11/2024 [id number] / / documented as of this encounter Visit Diagnoses Diagnosis Chronic urticaria- Primary Other specified urticaria Mild persistent asthma without complication Unspecified asthma Nonallergic rhinitis Chronic rhinitis Postnasal drip documented in this encounter Advance Directives * No Code (Latest Code Status on File) Date Activated Date Inactivated Comments 06/19/2022 10:18 AM 06/19/2022 5:22 PM This order reflects the patients wishes and were consensually agreed upon. Question Answer Comments Discussion of Advance Directives occurred with: Patient Does the patient have a Living Will? No Does the patient have Health Care Power of Attor madison? No * No Code Date Activated Date Inactivated Comments 05/31/2022 12:40 PM 05/31/2022 7:01 PM This orde r reflects the patients wishes and were consensually agreed upon. Question Answer Comments Discussion of Advance Directives occurred with: Patient Does the patient have a Living Will? No Does the patient have Health Care Power of Attor madison? No Care Teams Roll Press Operator Relationship Specialty Start Date End Date Jenifer October TAYA Manley [address] [facility] [place] [address] PCP - General Physician Management Services Technician 01/22/24 documented as of this encounter
--- OUTSIDE RECORDS SUMMARY | 2024-04-13 07:42 | External Medical Summary | Summary of Care ---
Author Name Unknown Organization [facility] Address [address] [place] [address] Phone [phone] Care Team Providers Care Motion Graphics Designer Name Role Phone Radha Burgess PA-C Primary Care Provider [phone] Reason for Visit * Reason Comments Allergy Return Encounter Details Date Type Department Care Team (Late st Contact Info) Description 04/03/2024 9:30 AM EDT Office Visit Allergy/Immunology [facility] [place] [address] [facility] [place] [address] Arely Preston PA-C [address] [facility] [place] [address] Chronic urticaria*; Mild persistent asthma without complication; [...] BEDTIME 90 Tablet 3 05/31/2023 Active Ipratropium [place] 0.03 % Nasal Solution (Atrovent) Administer 2 [...] 07/17/2018 02/15/2020 Overview: DO NOT DELETE [facility] DETECT Study: Project # [id number], Director Physical Therapy: Deejay Bowens, PhD. SUMMARY: Goal: Establish test [...] contact study staff at ; after hours Director Physical Therapy via the [facility] cork pressing machine operator . Please contact study team before resolving/deleting from patients problem list. Study phone number: [phone]. Diagnosis changed due to Research Module. Go to Snapshot for study details. Encounter for examination fo r normal comparison and control in clinical research program 07/17/2018 03/15/2022 Overview: DO NOT DELETE - [facility] DETECT Study: Project # [id number], Director Physical Therapy: Sage Wilson, MS, MPH. SUMMARY: Goal: Establish [...] contact study staff at ; after hours Director Physical Therapy via the [facility] cork pressing machine operator . - Please contact study team before resolving/deleting from patients problem list. Study phone number: [phone]. Diagnosis changed due to Research Module. Go [...] mRNA, LNP-s, No Pre serve, 2-Dose Series ([employer]) 03/15/2021,10/01/2020,09/10/2020 Hepatitis B, 20+ yrs 04/08/2002 PPD [...] PA-C - 04/03/2024 9:19 AM EDT SUBJECTIVE: Edel is a pleasant 73 year old female [...] TABLET BEFORE BEDTIME 90 Tablet 3 Ipratropium [place] 0.03 % Nasal Solution (Atrovent) Administer 2 [...] 23, 2016 revealed normal spirometry. FEV1/FVC was 84%. FEV1 was 2.29, 96% of predicted. FVC was [...] startedin 2009 and was eventually referred to [facility] where she was eventually placed on Plaquenil [...] listed above.) PCP: KIRILL FLORES III, DR [place] [address] [phone] documented in this encounter Nursing Notes * [...] EST Office Visit Nutrition & Weight Management, [address] [place] [phone] Rolanda Carlin PA-C [address] [facility] [place] [address] 06/03/2024 9:15 AM EST Office Visit Urology, [facility] [address] [facility] [place] [address] Emerson Wooten MD [address] [place] [address] 07/23/2024 9:00 AM EST Office Visit Family Practice [facility] [address] [place] [address] Radha Burgess PA-C [address] [facility] [place] [address] 07/28/2024 9:00 AM EST Imaging Radiology, [address] [place] [address] 08/03/2024 9:30 AM EST Office Visit Allergy/Immunology [facility] [address] [place] [address] Arely Preston PA-C [address] [place] [address] 09/21/2024 8:30 AM EDT Office Visit Cardiology, [facility] [address] [facility] [place] [address] Donell Alvarez MD [address] [facility] [place] [address] 11/30/2024 9:45 AM EDT Office Visit Dermatology [facility] [address] [place] [address] Petr Hurtado MD [address] [facility] [place] [address] Scheduled Procedures Name Priority Associated Diagnoses Date/Ti [...] Additional history exists CKD HGB USE SMARTSET 28677 01/20/202501/20, 01/25/2023, 02/19/2022, Additional history exists CKD PHOS USE SMARTSET 96151 01/20/2025 0703/2024, 01/25/2023, 12/30/2020 Mammogram 02/11/2025 02/12/2024, [...] this encounter Medical Devices Implanted Type Area Sampling Theory Teacher Device Identifier Shelf Expiration Date Model / Serial / Lot Clip Quick 2.8mm 230cm - [id number] Implanted:Qty: 3 on 05/31/2021 by Filemon Luevano MD at ENDOSCOPY [facility] [employer] 10/13/2023 [id number]-[id number].A / / Description:transverse colon poypectomy site Lens Intraoc 26.0 - [id number] - [id number] Implanted:Qty: 1 on 05/31/2022 by Jf Suh MD at OR [facility] Left: Eye [employer] 10/12/2026 [id number] / [id number] / [id number] Lens Intraoc 22.5 - [id number] - [id number] Implanted:Qty: 1 on 06/19/2022 by Jf Suh MD at OR [facility] Right: Eye [employer] 02/11/2031 [id number] / [id number] / [id number] Sureclip 16mm 235cm - [id number] Implanted:Qty: 1 on 06/26/2022 by Filemon Luevano MD at ENDOSCOPY [facility] Colon MICRO TECH ENDOSCOPY 05/11/2024 [id number] / / documented as of this encounter [...] Power of Attor madison? No Care Teams Motion Graphics Designer Relationship Specialty Start Date End Date Jenifer October TAYA Manley [address] [facility] [place] [address] PCP - General Physician Burn Nurse 01/22/24 documented as of this encounter
--- OUTSIDE RECORDS SUMMARY | 2024-04-13 07:42 | External Medical Summary | Summary of Care ---
Author Name Unknown Organization [facility] Address [address] [place] [place] [place] [address] Phone [phone] Care Team Providers Care Continuous Still Operator Name Role Phone Radha Burgess PA-C Primary Care Provider [phone] Reason for Visit * Reason Comments eRx-Medication Refill Encounter Details Date Type Department Care Team (Late st Contact Info) Description 03/28/2024 Refill Family Practice [facility] [address] [place] [address] Kirill Flores III, MD 200 [place] [address] Restless legs syndrome Allergies Active Allergy Reactions Criticality Noted Date Comments Indomethacin Other (Please comment) 06/16/2009 headache Midazolam High 01/26/2022 Other reaction(s): Nausea Sulfa Antibiotics 01/09/2001 As a child; mouth sores documented as of this encounter (statuses as of 03/30/2024) Medications Medication Sig Dispensed Refills Start Date End Date Status MAGNESIUM OXIDE 400 MG OR CAPSIndications:P alpitations Take 1 tablet daily 34 5 5 Active CALCIUM 500 MG PO CAPS take one cap by mouth daily 34 11 6 Active ICAPS LUTEIN-ZEAXANTHIN PO TBCR restore- 1 pill daily Active Esomeprazole Magnesium (NEXIUM) 20 MG CPDR Take 1 Cap by mouth daily before breakfast. 8 Active Ketoconazole 2 % creamIndications: Intertriginous candidiasis APPLY TOPICALLY TO THE AFFECTED AREA TWICE DAILY FOR 6 WEEKS. 30 g 9 Active Additional Information Patient taking differently: PRN, Reported on 01/28/2024 Albuterol Sulfate (2.5 MG/3ML) 0.083% Inhalation Nebulization Solution (Proventil) Inhale 1 Vial via nebulizer every 4 hours as needed for Wheezing or Shortness of Breath (And with respiratory infections). 60 mL 1 1 Active hydrOXYzine HCl 10 MG Oral Tablet (Atarax) Take 1 Tab by mouth every 6 hours as needed for Itching (and hives). 60 Tab 6 1 Active Fluticasone Propionate 50 MCG/ACT Nasal Suspension (Flonase) Administer 2 Sprays in the morning into nostril. 48 g 3 2 Active predniSONE 10 MG Oral Tablet (Deltasone) 1-2 tabs a day as needed for hives 60 Tablet 1 2 Active Ferrous Sulfate 325 (65 Fe) MG Oral Tablet Delayed Release Take 1 Tablet by mouth in the morning. 90 Tablet 2 Active Amoxicillin 500 MG Oral Capsule (Amoxil) TAKE 4 CAPSULES ONE HOUR PRIOR TO DENTAL PROCEDURE 2 Active Albuterol Sulfate HFA 108 (90 Base) MCG/ACT Inhalation Aerosol SolutionIndicatio ns:Mild persistent asthma without complication Inhale 2 Puffs by mouth every 4 hours as needed for Cough, Shortness of Breath or Wheezing. 72 g 3 3 Active metroNIDAZOLE 0.75 % External Cream (MetroCream) Apply topically to affected area 2 times a day. Apply to face 45 g 5 3 Active Aspirin 81 MG Oral Capsule Take by mouth. Three times per week Active Solifenacin Succinate 5 MG Oral Tablet (VESIcare) TAKE 1 TABLET BY MOUTH ONCE DAILY IN THE MORNING 90 Tablet 3 3 Active Myrbetriq 50 MG Oral Tablet Extended Release 24 Hour (Mirabegron ER) TAKE 1 TABLET BEFORE BEDTIME 90 Tablet 3 3 Active Ipratropium [place] 0.03 % Nasal Solution (Atrovent) Administer 2 Sprays into nostril in the morning and 2 Sprays at noon and 2 Sprays before bedtime. 90 mL 3 3 Active Fluticasone Furoate 100 MCG/ACT Inhalation Aerosol Powder Breath Activated (ARNUITY ellipta) Inhale 1 Puff by mouth in the morning. 90 Each 3 3 Active Furosemide 20 MG Oral Tablet (Lasix)Indication s:HTN, goal below 140/90 TAKE 1 TABLET 3-4 TIMES PERWEEK 45 Tablet 3 4 Active Atorvastatin Calcium 10 MG Oral Tablet (Lipitor)Indicati ons:takes at bed Take 1 Tablet by mouth in the morning. 90 Tablet 3 4 Active Spironolactone 25 MG Oral Tablet (Aldactone)Indica tions:HTN, goal below 140/90 Take 0.5 Tablets by mouth in the morning. 45 Tablet 3 4 Active Metoprolol Succinate ER 25 MG Oral Tablet Extended Release 24 Hour (toPROL XL)Indications:HT N, goal below 140/90 TAKE 1 TABLET EVERY MORNINGAND TAKE 1 TABLET BEFORE BEDTIME 180 Tablet 3 4 Active Montelukast Sodium 10 MG Oral Tablet (Singulair) Take 1 Tablet by mouth in the morning. 90 Tablet 4 4 Active Alendronate Sodium 70 MG Oral Tablet (Fosamax)Indicati ons:Age-related osteoporosis without current pathological fracture Take 1 Tablet by mouth once a week. 12 Tablet 4 4 Active Gabapentin 400 MG Oral Capsule (Neurontin) Take 1 Capsule by mouth in the morning and 1 Capsule before bedtime. 180 Capsule 3 4 Active Ozempic (0.25 or 0.5 MG/DOSE) 2 MG/3ML Solution Pen-injector (Semaglutide(0.25 or 0.5MG/DOS))Indica tions:Type 2 diabetes mellitus with target hemoglobin A1c of less than 8.0 percent (HCC) Inject 0.25mg under the skin once weekly for 4 weeks then increase to 0.5mg under the skin once weekly thereafter 3 mL 4 Active Ozempic (0.25 or 0.5 MG/DOSE) 2 MG/3ML Solution Pen-injector (Semaglutide(0.25 or 0.5MG/DOS)) Inject 0.5 mg under the skin once a week. 15 mL 4 Active Nitrofurantoin Monohyd Macro 100 MG Oral Capsule (Macrobid) Take 1 Capsule by mouth in the morning and 1 Capsule before bedtime. With food.. 20 Capsule 2 4 Active rOPINIRole HCl 2 MG Oral Tablet (Requip)Indicatio ns:Restless legs syndrome TAKE 1 TABLET 3 TIMES A DAYWITH FOOD 270 Tablet 3 4 Active rOPINIRole HCl 2 MG Oral Tablet (Requip)Indicatio ns:Restless legs syndrome TAKE 1 TABLET 3 TIMES A DAYWITH FOOD 270 Tablet 3 3 03/30/20 24 Discontinued documented as of this encounter (statuses as of 03/30/2024) Active Problems Problem Noted Date Diagnosed Date [...] as of this encounter (statuses as of 03/30/2024) Resolved Problems Problem Noted Date Diagnosed Date Resolved Date Encounter for examination fo r normal comparison and control in clinical research program 07/17/2018 02/15/2020 Overview: DO NOT DELETE [facility] DETECT Study: Project # [id number], Medical Imaging Technician: Deejay Bowens, PhD. SUMMARY: Goal: Establish test [...] contact study staff at ; after hours Medical Imaging Technician via the [facility] air table operator . Please contact study team before resolving/deleting from patients problem list. Study phone number: [phone]. Diagnosis changed due to Research Module. Go to Snapshot for study details. Encounter for examination fo r normal comparison and control in clinical research program 07/17/2018 03/15/2022 Overview: DO NOT DELETE - [facility] DETECT Study: Project # [id number], Medical Imaging Technician: Sage Wilson, MS, MPH. SUMMARY: Goal: Establish [...] contact study staff at ; after hours Medical Imaging Technician via the [facility] air table operator . - Please contact study team before resolving/deleting from patients problem list. Study phone number: [phone]. Diagnosis changed due to Research Module. Go [...] as of this encounter (statuses as of 03/30/2024) Immunizations Name Administration Dates Next Due COVID-19 mRNA, LNP-s, No Pre serve, 2-Dose Series (Pfizer) 03/15/2021,10/01/2020,09/10/2020 Pneumococcal Conjugate Vacc, 13 Valent (Prevnar) 10/29/2016 [...] Influenza, Trivalen t, (IIV3), with Preserv, (Fluzone) 03/30/2015,04/21/2014,05/11/2013,11/0 07/2011,05/12/2010,05/13/2009,05/20/20,04/23/2007,05/23/2006 04/21/2015 TDAP (age 10 and older)(Boostrix) 01/16/2023, Varicella Zoster Vaccine (Adult) 03/30/2015 Zoster Vaccine Recombinant (Shingrix) 01/06/2020 ,09/14/2019 documented as of this encounter Social History Tobacco Use Types Packs/Day Years Used Date Smoking Tobacco: Never Smokeless Tobacco: Never Comments:no passive smoke ex posures Alcohol Use Standard Drinks/Week Comments Yes 0 [...] on file documented as of this encounter Miscellaneous Notes * Telephone Encounter - Kirill Flores III, MD - 03/30/2024 8:04 AM EDTSigned Prescriptions: Disp Refills rOPINIRole HCl 2 MG Oral Tablet (Requip) 270 Ta*3 Sig: TAKE 1 TABLET 3 TIMES A DAYWITH FOODAuthorizing Provider: KIRILL FLORES III * Telephone Encounter - Aide Lee LPN - 03/30/2024 7:47 AM EDTPending Prescriptions: Disp Refills rOPINIRole HCl 2 MG Oral Tablet [Pharmacy *270 Ta*3 Sig: TAKE 1 TABLET 3 TIMES A DAYWITH FOOD * Telephone Encounter - Aide Lee LPN - 03/30/2024 7:47 AM EDT Pending Prescriptions: Disp Refills rOPINIRole HCl 2 MG Oral Tablet (Requip) *270 Ta*3 Sig: TAKE 1 TABLET 3 TIMES A DAYWITH FOOD Last Visit: 01/20/2024 (in office), Visit date not found (telemedicine) Next Visit: 07/23/2024 Last date the medication was ordered: 05/13/2023 Patient Active Problem List Diagnosis ADVANCE DIRECTIVE [...] of 40.0 to 44.9 in adult (HCC) Labs: Lab Results Component Value Date/Time CREATININE - [facility] 0.9 01/21/2024 07:12 AM CREATININE - [facility] 1.2 (H) 08/01/2020 10:28 AM CREATININE, RANDOM URINE - [facility] 62 01/21/2024 07:16 AM Lab Results Component Value Date/Time POTASSIUM - [facility] 4.8 07/22/2023 12:27 PM POTASSIUM - [facility] 5.0 08/01/2020 10:28 AM Lab Results Component Value Date/Time TSH - [facility] 0.96 07/04/2020 04:19 PM Lab Results Component Value Date/Time LDL CHOLESTEROL (CALCULATED) - [facility] 92 01/21/2024 07:12 AM LDL CHOLESTEROL (CALCULATED) - [facility] 79 01/25/2023 08:11 AM LDL CHOLESTEROL (CALCULATED) - [facility] 85 09/08/2019 10:34 AM LDL CHOLESTEROL (CALCULATED) - [facility] 83 02/11/2017 10:06 AM Lab Results Component Value Date/Time ALT - [facility] 11 04/13/2021 09:43 AM ALT - [facility] 14 07/04/2020 04:19 PM Hemoglobin AIC Results: Lab Results Component Value Date/Time HEMOGLOBIN A1C - [facility] 5.6 07/22/2023 12:27 PM HEMOGLOBIN A1C - [facility] 5.8 (H) 01/25/2023 08:11 AM HEMOGLOBIN A1C - [facility] 5.9 (H) 07/24/2021 08:47 AM HEMOGLOBIN A1C - [facility] 6.1 (H) 09/08/2019 10:34 AM HEMOGLOBIN A1C - [facility] 5.9 (H) 08/08/2018 02:52 PM * Telephone Encounter - Kimmy Veras - 03/28/2024 1:19 PM EDTPending Prescriptions: Disp Refills rOPINIRole HCl 2 MG Oral Tablet [Pharmacy *270 Ta*3 Sig: TAKE 1TABLET 3 TIMES A DAYWITH FOOD documented in this encounter Plan of Treatment Upcoming Encounters Date Type Department Care Team (Late st Contact Info) Description 04/03/2024 9:30 AM EDT Office Visit Allergy/Immunology [facility] [address] [place] [address] Arely Preston PA-C 200 [facility] [place] [address] 06/03/2024 8:20 AM EST Office Visit Nutrition & Weight Management, [facility] [address] [place] [address] Rolanda Carlin PA-C [address] [place] [address] 06/03/2024 9:15 AM EST Office Visit [facility], [facility] [address] Emerson Wooten MD [address] [place] [address] 07/23/2024 9:00 AM EST Office Visit Family Practice [facility] [address] [facility] [place] [address] Radha Burgess PA-C 200 [facility] [place] [address] 07/28/2024 9:00 AM EST Imaging Radiology, [place] [address] [facility] [place] [address] 09/21/2024 8:30 AM EDT Office Visit Cardiology, [facility] 132 [facility] [place] [address] Donell Alvarez MD 132 [place] [address] 11/30/2024 9:45 AM EDT Office Visit Dermatology [facility] [address] [facility] [place] [address] Petr Hurtado MD 200 [facility] [place] [address] Scheduled Procedures Name Priority Associated Diagnoses Date/Ti [...] Additional history exists CKD HGB USE SMARTSET 14507 01/20/202501/20, 01/25/2023, 02/19/2022, Additional history exists CKD PHOS USE SMARTSET 71526 01/20/2025 07/0 03/2024, 01/25/2023, 12/30/2020 Mammogram 02/11/2025 02/12/2024, 01/12, 01/22/2022, [...] this encounter Medical Devices Implanted Type Area [place] Cutter Device Identifier Shelf Expiration Date Model / Serial / Lot Clip Quick 2.8mm 230cm - [id number] Implanted:Qty: 3 on 05/31/2021 by Filemon Luevano MD at ENDOSCOPY [facility] [employer] 10/13/2023 [id number] / / Description:transverse colon poypectomy site Lens Intraoc 26.0 - [id number] - [id number] Implanted:Qty: 1 on 05/31/2022 by Jf Suh MD at OR [facility] Left: Eye [employer] 10/12/2026 [id number] / [id number] / [id number] Lens Intraoc 22.5 - [id number] - [id number] Implanted:Qty: 1 on 06/19/2022 by Jf Suh MD at OR [facility] Right: Eye [employer] 02/11/2031 [id number] / [id number] / [id number] Sureclip 16mm 235cm - [id number] Implanted:Qty: 1 on 06/26/2022 by Filemon Luevano MD at ENDOSCOPY [facility] Colon MICRO TECH ENDOSCOPY 05/11/2024 [id number] / / documented as of this encounter Visit Diagnoses Diagnosis Restless legs syndrome Restless legs syndrome (RLS) documented in this encounter Advance Directives * [...] Power of Attor [place]? No Care Teams Continuous Still Operator Relationship Specialty Start Date End Date Jenifer October TAYA Manley [address] [place] [address] [place] [address] PCP - General Physician Cylinder Press Operator Apprentice 01/22/24 documented as of this encounter
--- OUTSIDE RECORDS SUMMARY | 2024-04-13 07:42 | External Medical Summary | Summary of Care ---
Author Name Unknown Organization [facility] Address [address] [facility] Phone [phone] Care Team Providers Care Ethnology Professor Name Role Phone Radha Burgess PA-C Primary Care Provider [phone] Encounter Details Date Type Department Care Team (Late st Contact Info) Description 03/28/2024 10:00 AM EDT Immunization Ancillary [facility] [address] [facility] [place] [address] [facility] [address] [facility] [place] [address] Arrived Allergies Active Allergy Reactions Criticality Noted Date Comments Indomethacin Other (Please comment) 06/16/2009 headache Midazolam High 01/26/2022 Other reaction(s): Nausea Sulfa Antibiotics 01/09/2001 As a child; mouth sores documented as of this encounter (statuses as of 03/28/2024) Medications Medication Sig Dispensed Refills Start Date [...] by mouth. Three times per week Active rOPINIRole HCl 2 MG Oral Tablet (Requip)Indications :Restless legs syndrome TAKE 1 TABLET 3 TIMES A DAYWITH FOOD 270 Tablet 3 05/13/2023 Active Solifenacin Succinate 5 MG Oral Tablet (VESIcare) TAKE 1 TABLET BY MOUTH ONCE DAILY IN THE MORNING 90 Tablet 3 05/31/2023 Active Myrbetriq 50 MG Oral Tablet Extended Release 24 Hour (Mirabegron ER) TAKE 1 TABLET BEFORE BEDTIME 90 Tablet 3 05/31/2023 Active Ipratropium [place] 0.03 % Nasal Solution (Atrovent) Administer 2 [...] With food.. 20 Capsule 2 03/02/2024 Active documented as of this encounter (statuses as of 03/28/2024) Active Problems Problem Noted Date Diagnosed Date [...] as of this encounter (statuses as of 03/28/2024) Resolved Problems Problem Noted Date Diagnosed Date Resolved Date Encounter for examination fo r normal comparison and control in clinical research program 07/17/2018 02/15/2020 Overview: DO NOT DELETE [facility] DETECT Study: Project # [id number], Automatic Dispenser Mechanic: Deejay Bowens, PhD. SUMMARY: Goal: Establish test [...] contact study staff at ; after hours Automatic Dispenser Mechanic via the [facility] hospital angle dozer operator . Please contact study team before resolving/deleting from patients problem list. Study phone number: [phone]. Diagnosis changed due to Research Module. Go to Snapshot for study details. Encounter for examination fo r normal comparison and control in clinical research program 07/17/2018 03/15/2022 Overview: DO NOT DELETE - [facility] Study: Project # [id number], Automatic Dispenser Mechanic: Sage Wilson, MS, MPH. SUMMARY: Goal: Establish [...] contact study staff at ; after hours Automatic Dispenser Mechanic via the [facility] angle dozer operator . - Please contact study team before resolving/deleting from patients problem list. Study phone number: [phone]. Diagnosis changed due to Research Module. Go [...] as of this encounter (statuses as of 03/28/2024) Immunizations Name Administration Dates Next Due COVID-19 [...] Trivalen t, (IIV3), with Preserv, (Fluzone) 03/30/2015,04/21/2014,05/11/2013,07/2011,05/12/2010,05/13/2009,05/20/20 08,04/23/2007,05/23/2006 04/21/2015 TDAP (age 10 and older)(Boostrix) 01/16/2023, [...] on file documented as of this encounter Plan of Treatment Upcoming Encounters Date Type Department Care Team (Late st Contact Info) Description 04/03/2024 9:30 AM EDT Office Visit Allergy/Immunology [facility] [address] [place] [address] Arely Preston PA-C [address] [place] [address] 06/03/2024 8:20 AM EST Office Visit Nutrition & Weight Management, [facility] [address] [place] [address] Rolanda Carlin PA-C [address] [place] [address] 06/03/2024 9:15 AM EST Office Visit Urology, [facility] 132 [facility] [place] [address] Emerson Wooten MD [address] [place] [address] 07/23/2024 9:00 AM EST Office Visit Family Practice [facility] [address] [place] [address] Radha Burgess PA-C [address] [place] [address] 07/28/2024 9:00 AM EST Imaging Radiology, [facility] [address] [place] [address] 09/21/2024 8:30 AM EDT Office Visit Cardiology, [facility] [address] [place] [address] Donell Alvarez MD [address] [place] [address] 11/30/2024 9:45 AM EDT Office Visit Dermatology [facility] [address] [place] [address] Petr Hurtado MD [address] [place] [address] Scheduled Procedures Name Priority Associated Diagnoses Date/Ti me COLONOSCOPY FLEXIBLE PROXIMAL DIAGNOSTIC Recall History of colon polyps Health Maintenance Due Date Last Done Comments Cologuard 1996 Fecal Occult Blood Test 1996 Sigmoidoscopy 1996 Hepatitis B Vaccine (2 of 3 - 19+ 3-dose series) 05/06/2002 04/08/2002 Adult Wellness Visit 2017 Depression Screening 09/07/2020 09/07/2019, 02/13/2016 (Discussed) COVID-19 Vaccine ( season) 2024 03/15/2021, 10/01/2020, 09/10/2020 Influenza Vaccine (FLU shot) (#1) 2024 03/28/2024, 03/30/2023, 03/26/2022, Additional history exists HbA1c 07/22/2024 07/22/2023, 01/12, 07/24/2021, Additional history exists GFR 07/23/2024 01/21/2024, 02/2024, 05/31/2023, Additional history exists Albumin/Creatinine Ratio 01/20/2025 072 024, 01/25/2023, 02/22/2022, Additional history exists CKD HGB USE SMARTSET 25778 01/20/202501/20, 01/25/2023, 02/19/2022, Additional history exists CKD PHOS USE SMARTSET 79154 01/20/2025 07/0 03/2024, 01/25/2023, 12/30/2020 Mammogram 02/11/2025 [...] Discontinued 06/26/2022, 06/26/2022, 05/31/2021, Additional history exists HPV (Gardasil) Vaccine Aged Out No lo nger eligible based on patient's age to complete this topic MENINGOCOCCAL (MENACTRA/MENVEO) Aged Out No longer eligible based on patient's age to complete this topic documented as of this encounter Medical Devices Implanted Type Area Graphic Design Intern Device Identifier Shelf Expiration Date Model / Serial / Lot Clip Quick 2.8mm 230cm - [id number] Implanted:Qty: 3 on 05/31/2021 by Filemon Luevano MD at ENDOSCOPY [facility] [employer] 10/13/2023 [id number] / / Description:transverse colon poypectomy site Lens Intraoc 26.0 - [id number] - [id number] Implanted:Qty: 1 on 05/31/2022 by Jf Suh MD at OR [facility] Left: Eye [employer] 10/12/2026 [id number] / [id number] / [id number] Lens Intraoc 22.5 - [id number] - [id number] Implanted:Qty: 1 on 06/19/2022 by Jf Suh MD at OR [facility] Right: Eye [employer] 02/11/2031 [id number] / [id number] / [id number] Sureclip 16mm 235cm - [id number] Implanted:Qty: 1 on 06/26/2022 by Filemon Luevano MD at ENDOSCOPY [facility] Colon MICRO TECH ENDOSCOPY 05/11/2024 [id number] / / documented as of this encounter Advance Directives * No Code [...] Power of Attor [place]? No Care Teams Ethnology Professor Relationship Specialty Start Date End Date JeniferOctober TAYA Manley [address] [facility] [place] [address] PCP - General Physician Firmware Test Engineer 01/22/24 documented as of this encounter
[2024-04-13] MEDS: LR 60ML/HR IV SCH (08:33)
[2024-04-13] MEDS: LR 500ML BOLUS, THEN 15ML/HR IV SCH (08:33)
[2024-04-13] MEDS: GABAPENTIN 300 MG CAP PO SCH (08:34)
[2024-04-13] MEDS: FAMOTIDINE 20 MG TAB PO SCH (08:38)
[2024-04-13] MEDS: ACETAMINOPHEN 500 MG TAB PO SCH ×2 (08:38→14:13)
[2024-04-13] MEDS: dexAMETHasone**PF** 10 MG/ML VIAL IV SCH (08:38)
[2024-04-13] MEDS ORDERED: ePHEDrine sulfate 50 MG/ML AMP IV PRN (09:15)
[2024-04-13] MEDS ORDERED: ATROPINE SULFATE 0.1 MG/ML 10ML SYR IV PRN (09:15)
[2024-04-13] MEDS ORDERED: PROMETHAZINE HCL 6.25 MG in SODIUM CHLORIDE 0.9% 50 ML IV PRN (09:15)
[2024-04-13] MEDS ORDERED: ONDANSETRON INJ 2 MG/ML 2 ML VIAL IV PRN ×2 (09:15→13:12)
[2024-04-13] MEDS ORDERED: HYDROmorphone INJ 1 MG/ML SYRINGE IV PRN (09:15)
[2024-04-13] MEDS ORDERED: KETOROLAC 30 MG/ML VIAL IV PRN (09:15)
--- NOTE | 2024-04-13 09:16 | History & Physical Bridge Note ---
Date of Service April 13, 2024 History & Physical Bridge Note I have examined the patient, reviewed the History & Physical and in the interval since the performance of the History & Physical I have noted the following changes of clinical significance: no changes noted
[2024-04-13] MEDS ORDERED: fentaNYL citrate PF 100 MCG/2 ML VIAL ONE (09:20)
[2024-04-13] MEDS ORDERED: PROPOFOL IV EMULSION 10 MG/ML 20 ML VIAL IV ONE (09:20)
[2024-04-13] MEDS: TRANEXAMIC ACID 1,000 MG **IV Pre-op IV SCH (10:01)
[2024-04-13] MEDS: ceFAZolin 2000MG 2,000 MG/15 ML SYR IV SCH ×2 (10:14→17:21)
[2024-04-13] MEDS: ROPIV 0.5% 246mg, Ketorolac 30mg, EPINEPHrine 0.5mg in NSS INFIL SCH (10:46)
[2024-04-13] MEDS: ORTHO JOINT ANESTHETIC ONE (10:47)
[2024-04-13] MEDS: TRANEXAMIC ACID 1,000 MG **IV Intra-op IV SCH (11:19)
--- NOTE | 2024-04-13 11:29 | Operative Report ---
PG Post Operative Report Pre & Post Diagnosis Operation Date: 04/13/24 10:00 Pre-Op Diagnosis: Right knee osteoarthritis Post-Op Diagnosis: Right knee osteoarthritis I identified the patient and participated in the time-out.: Yes Procedure Operation Date: 04/13/24 10:00 Actual Procedures p Right Total Knee Arthroplasty(Right) - Chava Rain DO Surgeon Chava Rain DO Tour Consultant Chava Arambula PA-C Estimated Blood Loss 30 Findings Consistent with Post-Op Diagnosis Specimens Right femoral and tibial bone Description of Procedure Implants used: I used a Balbir Persona total knee arthroplasty system with a size 6 standard PS femur, D tibia, 28 oval patella, and a size 12 CPS polyethylene bearing. All components were cemented in place with Biomet cement. Haley arrived [facility] for the above procedure. She was seen in the preoperative holding area and the operative extremity was identified and signed. She was given a preoperative antibiotic, TXA, a spinal anesthetic and an adductor nerve block. She was taken back to the operating room and laid on the table in supine position. She was given basic sedation. The operative knee was then prepped and draped in sterile fashion. A timeout was done, and the patient and the operative extremity was properly identified. A midline incision was made directly over the patella. Dissection was taken down to the extensor mechanism. A medial parapatellar arthrotomy was used. The medial retinaculum was released and the fat pad was mostly excised. The knee was flexed and the ACL, PCL, and meniscus were removed. A drill was sent down the center of the femoral canal followed by an intramedullary daniel. Off that daniel a distal femoral cutting block was placed. 9 mm was resected off the distal femur at 5 of valgus. A posterior referencing AP sizing guide was then placed on the distal femur. The femur measured to be a size 6. 2 drill holes were placed in 3 of external rotation. A 4-in-1 cutting block was then impacted into place. Anterior, posterior, and chamfer cuts were then made. The proximal tibia was then exposed. An external tibial alignment guide was placed. A tibial cut guide was then anchored in place and the proximal tibia was then resected. The posterior aspect of the knee was then opened up and any additional meniscus fragments and osteophytes were removed. The tibia measured to be a size D. The tibial plate was then placed in the appropriate rotation and the tibia was drilled and punched. Trial components were then placed. I used a size 12 CPS polyethylene insert. The knee was brought through a full range of motion and felt to be stable. The peg holes for the femoral component were then drilled. The patella was then everted and 9 mm was resected off the posterior aspect of the patella. The patella measured to be a size 28 oval. 3 peg holes were then drilled. A trial patella was placed. The knee was once again brought through a full range of motion and felt to be stable. Trial components were then removed. The surrounding soft tissues were injected with 100 cc of an orthopedic pain control cocktail. All components were then cemented into place with Biomet cement. The final polyethylene insert was then snapped into place. Once cement was dry the tourniquet was deflated. Hemostasis was obtained. A dilute betadyne lavage was then done for 3 minutes. The joint was then irrigated with normal saline solution. The medial parapatellar arthrotomy was then closed with #1 Vicryl suture. The skin was closed with 2-0 Vicryl, 3-0V lock suture, and saleem. A soft compressive dressing was placed. She was then transferred to a hospital bed and taken to the postanesthesia care unit in stable condition. She tolerated the procedure well. Chava Arambula PA-C, was present for the entire procedure. He was critical for patient positioning, prepping, draping, retraction exposure, wound closure and application of sterile dressing. I attest to the content of the Intraoperative Record and any orders documented therein. Any exceptions are noted below.
[2024-04-13] MEDS ORDERED: LIDOCAINE 2% 2 ML VIAL/AMP(20MG/ML) INFIL ONE (11:39)
[2024-04-13] MEDS ORDERED: ONDANSETRON INJ 2 MG/ML 2 ML VIAL ONE (11:39)
[2024-04-13] MEDS ORDERED: MAGNESIUM HYDROXIDE SUSP 30 ML UDC PO PRN (13:12)
[2024-04-13] MEDS ORDERED: HYDROCORTISONE HC 2.5% CRM 30GM TUBE EXT PRN (13:12)
[2024-04-13] MEDS ORDERED: KETOCONAZOLE 2% CR 15 GM TUBE EXT PRN (13:12)
[2024-04-13] MEDS ORDERED: ALBUTEROL HFA 8 GM INHALER INH PRN (13:12)
[2024-04-13] MEDS ORDERED: hydrOXYzine HCl 10 MG TAB PO PRN (13:12)
[2024-04-13] MEDS ORDERED: ALBUTEROL 0.083% NEBU SOLN 3 ML VIAL INH PRN (13:12)
[2024-04-13] MEDS ORDERED: HYDROmorphone INJ 0.5 MG/0.5 ML SYR IV PRN (13:12)
[2024-04-13] MEDS ORDERED: bisacodyL 10 MG SUPP PR PRN (13:12)
[2024-04-13] MEDS ORDERED: NALOXONE HCL 0.4 MG/1 ML VIAL/CARP IV PRN (13:12)
[2024-04-13] MEDS ORDERED: METOCLOPRAMIDE HCL INJ 5 MG/ML 2 ML VIAL IV PRN (13:12)
--- NOTE | 2024-04-13 13:20 | Anesthesiology Progress Note ---
Date of Service April 13, 2024 Anesthesia Post Procedure Vital Signs Vital Signs: Temp Pulse Pulse Resp BP Pulse Ox O2 Del Method 04/13/24 12:45 36.4 C L 65 12 121/73 97 Room Air 04/13/24 12:35 68 16 111/64 93 Room Air 04/13/24 12:25 66 16 121/64 92 Room Air 04/13/24 12:15 65 15 117/65 99 Oxymask 04/13/24 12:05 65 20 113/67 98 Oxymask 04/13/24 11:55 66 18 118/63 99 Oxymask 04/13/24 11:48 36.0 C L 68 15 114/64 100 Oxymask 04/13/24 08:11 36.5 C 77 18 149/94 H 97 Room Air O2 Flow Rate 04/13/24 12:45 0 04/13/24 12:35 0 04/13/24 12:25 0 04/13/24 12:15 4 04/13/24 12:05 4 04/13/24 11:55 4 04/13/24 11:48 4 04/13/24 08:11 Pain Intensity Right Knee: Pain Intensity: 0 Transfer of Care Handoff Completed per policy Notes Mental Status: alert / awake / arousable Patient Amnestic to Procedure: Yes Nausea / Vomiting: adequately controlled Pain: adequately controlled Airway Patency, RR, SpO2: stable & adequate BP & HR: stable & adequate Hydration State: stable & adequate Neuraxial Anesthesia: was administered and sensory block is resolving Anesthetic Complications: no major complications apparent
--- NOTE | 2024-04-13 13:24 | XRay Report ---
XR knee RT 1 or 2V routine CLINICAL HISTORY: Surgical Post Op TECHNIQUE: 2 views of the right knee were obtained. Comparison: Comparison is made to knee radiographs 03/18/2024 FINDINGS: Patient is status post total knee arthroplasty with expected postsurgical changes including soft tiss ue swelling and subcutaneous emphysema. No periarticular lucency or hardware fracture is seen. IMPRESSION: Expected postoperative appearance status post placement of total knee arthroplasty. ACT 112: Negative or not required by law. Electronically signed by: Adán Roe M.D. 04/13/2024 1:23 PM
[2024-04-13] MEDS: FUROSEMIDE 20 MG TAB PO SCH (14:03)
[2024-04-13] MEDS: SODIUM CHLORIDE 0.9% 1,000 ML IV SCH (14:12)
[2024-04-13] MEDS: KETOROLAC TROMETHAMINE 15 MG/ML VIAL IV SCH (14:13)
[2024-04-13] MEDS: rOPINIRole HCL 2 MG TABLET PO SCH (14:13)
[2024-04-13] MEDS: oxyCODONE HCL IR 5 MG TAB (IMMEDIATE RELEASE) PO PRN (20:54)
[2024-04-13] MEDS: DOCUSATE SODIUM 100 MG CAP PO SCH (20:54)
[2024-04-13] MEDS: ATORVASTATIN 10 MG TAB PO SCH (20:55)
[2024-04-13] MEDS: FLUTICASONE PROPIONATE NA SPR 16 GM BTL SCH (20:55)
[2024-04-13] MEDS: AZELASTINE HCL 0.1% NASAL 200 SPRAYS/27,400 MCG BTL NAE SCH (20:55)
[2024-04-13] MEDS: VIBEGRON 75 MG TAB PO SCH (20:55)
[2024-04-13] MEDS: METOPROLOL SUCC 25MG EXT REL TAB PO SCH (20:55)
[2024-04-13] MEDS: ASPIRIN 81 MG ECTAB PO SCH (20:56)
[2024-04-13] MEDS: SENNA 8.6 MG TAB PO SCH (20:56)
[2024-04-13] MEDS: GABAPENTIN 400 MG CAP PO SCH (20:56)
[2024-04-14 04:42] VITALS: TEMP 97.7
--- NOTE | 2024-04-14 07:03 | Orthopedic Progress Note ---
Date of Service April 14, 2024 Assessment & Plan (1) Status post right knee replacement: Overall she is doing very well. She is not having much pain in the right knee. She will be seen by physical therapy today for ambulation and range of motion exercises. She is on aspirin for DVT prophylaxis. The nursing staff can change her dressing after physical therapy. She can be discharged to home later today. She will follow-up orthopedics in 2 weeks. Dori Hollingsworth was seen and examined at bedside this morning. Overall she is doing very well. She is not having much pain in the right knee. She is been up and ambulating to the bathroom. She has no complaints.. Review of Systems All systems reviewed & are unremarkable except as noted in HPI & below. Physical Exam On physical examination of the right knee, the dressing is clean and dry. Her leg is out full extension. She has active dorsiflexion plantarflexion of her right ankle.. Results & Data Results & Data Laboratory Results . Diagnostic Findings Postoperative x-rays of the right knee show the prosthesis to be in anatomic alignment without any evidence of fracture complication, or loosening.. PG Care Time/CCT Total # of Minutes Spent Total Time Spent with Patient: Total time spent is greater than 50% in coordination of care (as documented) at patient's floor/unit and/or counseling patient: Coding Level of Care Code 95521 Post Operative Follow-Up Diagnoses Status post right knee replacement Z96.651
--- NOTE | 2024-04-14 07:04 | Discharge Summary ---
Date of Service April 14, 2024 Principal Diagnosis Same as "Discharge Diagnosis" noted below under Discharge Instructions. Discharge Exam On physical examination of the right knee, the dressing is clean and dry. Her leg is out full extension. She has active dorsiflexion plantarflexion of her right ankle.. Discharge Data Procedures Performed Operation Date: 04/13/24 10:00 Actual Procedures p Right Total Knee Arthroplasty(Right) - Chava Rain DO Ordered Studies 04/13/24 05:00 US - OR guided needle placemen Routine Hospital Course (1) Status post right knee replacement: On April 13, 2024 Edel arrived at [facility] and underwent a right knee replacement without complication. She had a spinal anesthetic. Postoperatively she was started on aspirin for DVT prophylaxis and transferred to the general orthopedic floors. Her hospital course was uneventful. On postop day #1, her vital signs were stable and her pain was well-controlled. She can participate well with physical therapy doing ambulation and range of motion exercises. She was then discharged to home. She will follow-up orthopedics in 2 weeks. PG Care Time/CCT Total # of Minutes Spent Total Time Spent with Patient: Total time spent is greater than 50% in coordination of care (as documented) at patient's floor/unit and/or counseling patient: Discharge Plan Discharge Items Patient Disposition: Home - Self-Care Reason For Visit: Right Knee Arthritis Discharge Diagnosis: Right knee replacement Activity: Per Instructions section Non-emergency contact: Surgeon Call non-emergency contact if: your wound has increased redness and your wound has increased drainage Follow-up/Referrals: Bart Brown MD [Primary Care Provider] - Diet: Regular Addtl Attending Provider Instructions: Activity and Therapy Recommendations: * If you are using [facility] then therapy will be provided at your home until they feel you have accomplished all of your goals. * If you are using [facility] then Physical Therapy will be provided until they feel you are ready to start Outpatient Physical Therapy. * If you are not using home therapy then Outpatient Physical Therapy should start about 3-5 days from your day of surgery. Therapy will last about 6-10 weeks * It is important not to put a pillow under your knee when you are relaxing or sleeping. It is just as important to make sure you are getting your knee perfectly straight as it is to regain your knee bend. * You were shown a series of exercises in the hospital. Do these exercises three times each day including the exercises you were shown in physical therapy. * Get up and walk several times each day. For the first four weeks, try not to stand or walk for more than one hour at a time. If you do stand or walk for more than one hour, you will not hurt anything, but your leg will likely swell. * As you feel comfortable, you may change from the walker or crutches to a cane and then to independent walking. Medications: * Narcotic You will likely be sent home from the hospital with a prescription for the narcotic pain medication that worked best throughout your stay. * Cefadroxil -take the antibiotic twice a day for 10 days to help prevent infection. * Aspirin Most patients will be required to take Aspirin 81mg twice a day for 6 weeks after surgery. This is obtained [id number] and a prescription is not necessary. * Other medications may be prescribed for specific circumstances. If you have any questions, please call the office at . * Resume previous home medications unless otherwise instructed TEDs/Elastic Stockings: The white elastic stockings help limit swelling and prevent blood clots from forming in your legs.~ The more you wear them, the more they work. Wear them for six weeks. Dressing Care: The dressing can be changed after physical therapy on postop day #1. Daily dry dressing changes for a few days, especially if the incision is still draining some. If the incision is not draining then you may leave the saleem open to air. If there is a little bit of drainage or if the saleem are getting stuck on your clothing then cover the incision with a dry dressing. The saleem will be removed at your 2 week follow-up appointment. Showering: You may shower 5 days from the day of surgery as long as the incision is no longer draining. You may shower with the saleem exposed. Let soapy water run over the saleem and pat them dry. Do not scrub or soak the incision. Diet: You may resume your previous diet. Things To Watch For: * Drainage from the incision site that occurs more than one week after your surgery. * Increased redness at the incision site. * Fever above 102 degrees Fahrenheit. * Unusual chest pain or shortness of breath. * Call [facility] at with any of the above problems Follow-Up Visit: Follow-up with Dr. Rain's PA (Chava Arambula) 2-3 weeks after your day of surgery. He will remove your saleem and answer any questions. If you have any additional questions or concerns, Dr Rain is usually in the office at the same time and will be available An appointment was probably scheduled when you signed-up for surgery in the office. If you have any questions call Office Instructions: More detailed instructions as well as Frequently Asked Questions were provided in a folder by our office when you signed-up for surgery. Please review these instructions when you get home. If you have any further questions or concerns, please feel free to call the office at [phone] Pending Studies at Discharge: No Stand-Alone Forms: My [facility], Smoking Cessation Medications and DC Order Prescriptions: New oxycodone 5 mg Tablet 5 mg PO Q4H PRN (Reason: pain) Qty: 30 0RF cefadroxil 500 mg capsule 500 mg PO BID 10 Days Qty: 20 0RF aspirin 81 mg Tablet,Delayed Release (Dr/Ec) 81 mg PO BID 42 Days Qty: 84 0RF Continued amoxicillin 500 mg tablet 2,000 mg PO ONCE PRN (Reason: prophylaxis) Qty: 4 2RF Rx Instructions: ONE HOUR PRIOR TO DENTAL PROCEDURE furosemide [Lasix] 20 mg tablet 20 mg PO 3XWK spironolactone 25 mg tablet 12.5 mg PO QAM Myrbetriq 50 mg tablet extended release 24 hr 50 mg PO QPM albuterol sulfate 2.5 mg /3 mL (0.083 %) Solution For Nebulization 2.5 mg INHALATION Q4 PRN (Reason: Shortness Of Breath) atorvastatin 10 mg Tablet 10 mg PO HS metoprolol succinate 50 mg Tablet Extended Release 24 Hr 25 mg PO BID hydrocortisone [Proctozone-HC] 2.5 % Cream With Perineal Applicator 1 applic [place] BID PRN (Reason: Hemorrhoids) albuterol sulfate [Proventil HFA] 90 mcg/actuation Hfa Aerosol Inhaler 2 puff INHALATION Q4 PRN (Reason: Shortness Of Breath) ketoconazole 2 % Cream 1 applic TOPICAL BID PRN (Reason: Rash) fluticasone propionate [Flonase Allergy Relief] 50 mcg/actuation Sibley,Suspension 2 spray INTRANASAL BID esomeprazole magnesium [Nexium] 20 mg Capsule,Delayed Release(Dr/Ec) 20 mg PO QAM Calcium 600 + D(3) 600 mg calcium- 200 unit Capsule 2 cap PO BID Hold Instructions: SURGERY magnesium oxide 400 mg magnesium Capsule 400 mg PO QPM lutein-zeaxanthin [Ocuvite Lutein 25] 25-5 mg Capsule 1 cap PO QAM solifenacin 5 mg Tablet 5 mg PO QAM ropinirole 2 mg Tablet 2 mg PO TID ferrous sulfate 325 mg (65 mg iron) Tablet 325 mg PO QAM Hold Instructions: SURGERY hydroxyzine HCl 10 mg Tablet 10 mg PO QID PRN (Reason: Itching) alendronate [Fosamax] 70 mg Tablet 70 mg PO WK gabapentin 400 mg Capsule 400 mg PO BID Arnuity Ellipta 100 mcg/actuation Blister With Device 1 inh INHALATION QAM Ozempic 0.25 mg or 0.5 mg(2 mg/1.5 mL) Pen Injector 0.5 mg SUBCUT WK Rx Instructions: takes on saturday and instructed to hold 7 days acetaminophen [Tylenol Ex Str Arthritis Pain] 500 mg Tablet 1,000 mg PO Q6H PRN (Reason: Pain) azelastine 137 mcg (0.1 %) Sibley,Non-Aerosol 1 spray INTRANASAL BID Rx Instructions: administer into each nostril Discharge Orders: Discharge Order (Routine); Ordered 04/14/24 Ordered By: Chava Rain Admission Data Admit Date/Time: 04/13/24 11:54 Attending Provider: Chava Rain Admit Provider: Chava Rain Primary Care Provider: Bart Brown
[2024-04-14 07:16] VITALS: BP 109/66; PULSE 59; RESP 16; O2SAT 96
[2024-04-14] MEDS: FERROUS SULFATE 325 MG TAB PO SCH (07:50)
[2024-04-14] MEDS: SPIRONOLACTONE 12.5 MG TAB PO SCH (07:50)
[2024-04-14] MEDS: PANTOprazole 40 MG TAB PO SCH (07:50)
[2024-04-14] MEDS: dexAMETHasone 4 MG TAB PO SCH (07:51)
[2024-04-14] MEDS: MULTIVITAMIN TAB PO SCH (07:51)
[2024-04-14] MEDS: FLUTICASONE FUROATE 100MCG 14 PUFFS/INHALER INH SCH (07:51)
[2024-04-14] MEDS: OXYBUTYNIN CHLORIDE XL 5 MG TABCR PO SCH (07:51)
[2024-04-14] MEDS ORDERED: NON-FORMULARY MEDICATION (Lutein-Zeaxanthin [Ocuvite Lutein 25] 25-5 mg Capsule) PO SCH (09:00)
[2024-04-15] MEDS ORDERED: ALENDRONATE SODIUM 70 MG TAB PO SCH (07:00)
== END 2024-04-14 10:40 | disposition home or self-care (01) ==
LOC: 3E 07:36 → ASU 07:36